=== PATIENT | female | born 1980 | race Caucasian/White ===

== ENCOUNTER → 2019-02-16 | Outpatient (CLI) | payer MEDICAID, SELFPAY ==
[2019-02-16 11:04] VITALS: BMI 20.6
[2019-02-16 12:50] LABS: Thyroid Stim Hormone (TSH) 0.91 uIU/mL (0.358-3.74)
== END | disposition home or self-care (01) ==
LOC: PAVLAB 11:49
PROVIDERS: Referring Provider Nurse Practitioner Women's Health; Visit Provider Nurse Practitioner Women's Health
DX: N92.1 Excessive and frequent menstruation with irregular cycle (principal)
CPT/HCPCS: 36415; 84443

== ENCOUNTER → 2019-02-19 | Outpatient (CLI) | payer MEDICAID, SELFPAY ==
[2019-02-16 11:04] VITALS: BMI 20.6
--- NOTE | 2019-02-19 15:47 | US_ITS ---
STUDY: ULTRASOUND TRANSVAGINAL CLINICAL: Female, 38 years old. Heavy menses TECHNIQUE: Transvaginal COMPARISON: None. FINDINGS: Normal uterine size measuring 7.8 x 5.1 x 4.7 cm in maximal craniocaudal dimension. There are no myometrial masses. Normal endometrial thickness measuring 5 mm. There are no endometrial masses, and there is no fluid in the endometrial cavity. Normal uterine cervix. Normal right ovary, measuring 2.8 x 1 0.9, 1.8 cm. There are multiple follicles without a dominant cyst. Normal left ovary, measuring 4.1 x 3.7 x 2.8 cm. There is a cyst measuring 3.8 x 3.6 x 2.4 cm There is no free fluid in the pelvis. US/Pelvic (Non ) IMPRESSION: Left ovarian cyst measuring 3.8 x 3.6 x 2.4 cm. No other significant abnormality Electronically Signed: Sal Garcia MD at 20:29 EDT , Service support ,
--- NOTE | 2019-02-19 15:47 | US_ITS ---
STUDY: ULTRASOUND TRANSVAGINAL CLINICAL: Female, 38 years old. Heavy menses TECHNIQUE: Transvaginal COMPARISON: None. FINDINGS: Normal uterine size measuring 7.8 x 5.1 x 4.7 cm in maximal craniocaudal dimension. There are no myometrial masses. Normal endometrial thickness measuring 5 mm. There are no endometrial masses, and there is no fluid in the endometrial cavity. Normal uterine cervix. Normal right ovary, measuring 2.8 x 1 0.9, 1.8 cm. There are multiple follicles without a dominant cyst. Normal left ovary, measuring 4.1 x 3.7 x 2.8 cm. There is a cyst measuring 3.8 x 3.6 x 2.4 cm There is no free fluid in the pelvis. US/Transvaginal Non- IMPRESSION: Left ovarian cyst measuring 3.8 x 3.6 x 2.4 cm. No other significant abnormality Electronically Signed: Sal Garcia MD at 20:29 EDT , Service support ,
== END | disposition home or self-care (01) ==
LOC: US 15:45
PROVIDERS: Referring Provider Nurse Practitioner Women's Health; Visit Provider Nurse Practitioner Women's Health
DX: N92.1 Excessive and frequent menstruation with irregular cycle (principal)
CPT/HCPCS: 76830; 76856; 93976

== ENCOUNTER → 2021-02-19 10:34 | Outpatient (CLI) | payer MEDICAID, SELFPAY ==
[2021-02-19 09:55] VITALS: BMI 21.2
[2021-02-19 10:56] LABS: Absolute Lymphocyte Count 1.74 X10^3/uL (0.83-4.51); Absolute Neutrophil Count 4.1 X10^3/uL (2.0-7.7); Basophil# 0.08 X10^3/uL; Basophil% 1.2 % (0-1); Eosinophils% 2.9 % (0-5); Hematocrit 17.3 % (37-47); Lymphocyte # 1.74 X10^3/ul (4.0); Lymphocyte % 25.2 % (19-41); Mean Corp Hgb Conc 28.3 g/dL (32-36); Mean Corpuscular Hgb 19.1 pg (27.0-32.0); Mean Corpuscular Volume 67.3 fL (81-99); Mean Platelet Vol. 10.1 fl (6.2-12.0); Monocyte% 10.1 % (0-10); NRBC Flagged by Analyzer 0 % (0-5); Neutrophil # 4.14 X10^3/uL (2.7-7.7); POSITIVE COUNT YES; Platelet Count 437 K/mm3 (150-450); RBC Distribution Width CV 18.1 % (11.6-14.6); RBC Distribution Width SD 43.5 fl (35.1-43.9); Red Blood Count 2.57 M/mm3 (4.2-5.4); White Blood Count 6.9 K/mm3 (4.4-11.0)
[2021-02-19 11:15] LABS: Hemoglobin 4.9 g/dL (12.0-15.0)
[2021-02-19 11:16] LABS: Differential Indicated SCAN CRITERIA MET
[2021-02-19 11:23] LABS: Anisocytosis 3+; Differential Comment SCANNED; Hypochromasia 2+; Microcytosis 3+
[2021-02-19 11:37] LABS: T4 Free Direct 0.99 ng/dL (0.76-1.46); Thyroid Stim Hormone (TSH) 1.46 uIU/mL (0.358-3.74)
[2021-02-19 11:57] LABS: Vitamin D,25 Hydroxy 20.6 ng/mL
[2021-02-20 12:57] LABS: Pathologist Review Reviewed
== END ==
PROVIDERS: Referring Provider Nurse Practitioner Women's Health; Visit Provider Nurse Practitioner Women's Health
DX: N92.1 Excessive and frequent menstruation with irregular cycle (principal); E04.9 Nontoxic goiter, unspecified; R53.83 Other fatigue; Z13.29 Encounter for screening for other suspected endocrine disorder; Z13.21 Encounter for screening for nutritional disorder
CPT/HCPCS: 36415; 82306; 84439; 84443; 85025

== ENCOUNTER 2021-02-19 12:05 | Observation (INO) | payer MEDICAID, SELFPAY ==
[2021-02-19] VITALS (15 sets, daily range): BP systolic 96–133; BP diastolic 48–85; PULSE 58–103; RESP 14–18; TEMP 36.1–37.3; O2SAT 97–100; BMI 21.2; BMI 20.7; BMI 20.8
--- NOTE | 2021-02-19 12:51 | ED.VIS.GEN ---
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 She states for the past several weeks she has had dyspnea with light exertion. For a month or 2, she has been having episodes of lightheadedness especially when she stands up quickly. She has not passed out. She denies any chest pain, fevers, headache, or changes in urine output. She currently has had no bleeding. She states she was having heavy periods last year, she was put on control pills that regulated it fairly well, but then Covid hit, she was not able to see anybody in the office, and her medication ran out probably 1 year ago but then her menstrual cycles really were not bad until November. Patient states she had a scratchy throat last week, she was seen in urgent care put on 2 courses of empiric antibiotics that she is finished with, that did not seem to help although the symptoms are gone now, and she was also tested for Covid and was negative. - Past Medical History (1) Menorrhagia with irregular cycle Status: Chronic Past Medical History - Allergies and Home Meds Allergies/Adverse Reactions: Allergies No Known Allergies Allergy (Unverified 02/19/21 12:10) Primary Care Physician: Care Physician,No Primary [Primary Care Provider] - Lives: With Family Smoking Status: Light Smoker (<10/day) Review of Systems General: Reports: Malaise, - - lightheaded w/ standing. Denies: Chills, Fever, Sweats Eyes: Denies: Visual changes - bilaterally, Diplopia ENT: Denies: Rhinorrhea, Sore throat Cardiovascular: Denies: Chest pain, Palpitations Respiratory: Reports: Dyspnea on exertion. Denies: Dyspnea, Cough Gastrointestinal: Denies: Abdominal pain, Nausea, Vomiting, Diarrhea, Melena, Hematochezia Genitourinary: Denies: Dysuria, Hematuria, Frequency Musculoskeletal: Denies: Back pain, Extremity Pain Skin: Denies: Rash, Wounds Neurological: Denies: Headache, Weakness, Numbness Physical Exam Vital Signs/Narrative: Vital Signs Temp Pulse Resp BP Pulse Ox 02/19/21 12:06 96.9 F L 103 H 18 133/85 H 100 Inital Vital Signs reviewed: Yes General: Well nourished, Well developed, No Acute Distress Head: Normocephalic, Atraumatic Eyes: Perrl, EOMI ENT: Moist mucous membranes, No rhinorrhea Neck: Supple, Nontender Cardiovascular: Regular rate, Regular rhythm, No murmurs Respiratory: No distress, CTA bilaterally, Chest nontender Abdomen: Soft, Nontender, Nondistended, Normal bowel sounds Back: Nontender, Normal Inspection Extremities: Nontender, No edema Skin: Normal color, No rash, No Trauma Neurological: Alert, Oriented x3, Cranial nerves II-XII grossly intact, Normal Strength, Normal Sensation, Normal Gait Psychological: Normal affect, Normal Mood Diagnostic/Tx/Re-eval Laboratory Tests 02/19/21 02/19/21 02/19/21 Range/Units 13:00 13:00 13:00 WBC 8.2 (4.4-11.0) K/mm3 RBC 2.52 L (4.2-5.4) M/mm3 Hgb 4.7 L* (12.0-15.0) g/dL Hct 16.9 L (37-47) % MCV 67.1 L (81-99) fL MCH 18.7 L (27.0-32.0) pg MCHC 27.8 L (32-36) g/dL RDW Std Deviation 42.8 (35.1-43.9) fl RDW Coeff of Zakia 17.9 H (11.6-14.6) % Plt Count 476 H (150-450) K/mm3 MPV 9.8 (6.2-12.0) fl Immature Gran % (Auto) 0.600 (0.0-0.9) % Neut % (Auto) 70.5 H (47-70) % Lymph % (Auto) 19.0 (19-41) % [place] % (Auto) 7.7 (0-10) % Eos % (Auto) 1.2 (0-5) % Baso % (Auto) 1.0 (0-1) % Absolute Neuts (auto) 5.7 (2.0-7.7) X10^3/uL Absolute Lymphs (auto) 1.55 (0.83-4.51) X10^3/uL Nucleated RBC % 0 (0-5) % Sodium 136 (136-145) mmol/L Potassium 3.4 L (3.5-5.1) mmol/L Chloride 106 (98-107) mmol/L Carbon Dioxide 25.0 (21.0-32.0) mmol/L Anion Gap 5 (5-15) BUN 16 (7-18) mg/dL Creatinine 0.91 (0.55-1.02) mg/dL Estim Creat Clear Calc 77.70 ml/min Est GFR (MDRD) Af Amer 88 (>60) mL/min Est GFR (MDRD) Non-Af 73 (>60) mL/min BUN/Creatinine Ratio 17.5 (10-20) RATIO Glucose 97 (74-106) mg/dL Calcium 9.3 (8.5-10.1) mg/dL Crossmatch See Detail - Medical Decision Making Clinically patient is orthostatic, her hemoglobin came back at 4.7 it is very microcytic indicating she probably has a production problem in addition to the blood loss she has been having. Since she requires at least 2 or 3 units of blood, possibly more, and could use more of a work-up to see if she is iron deficient or something else, I think admitting her to the hospital for the blood is most appropriate, only because she will be in the ER for 12 hours at least, getting the amount of blood that I think she needs. She is clinically stable at rest. Discussed with Dr. Mooney. - Critical Care Time Critical care time (excluding procedures): 30-74 minutes - 30 min, Including time spent:, Discussing w/Patient &/or Family/Application Programmer Analyst, Discussing w/Consultants, Arranging Admission or Transfer, Performing Direct Patient Care at Bedside ED Disposition - Plan for ED Patient: Disposition: Acute Care Hospital [facility] Diagnosis: Acute blood loss anemia, Menorrhagia with irregular cycle, Microcytic anemia, Orthostasis Referrals: Care Physician,No Primary [Primary Care Provider] -
[2021-02-19 13:10] LABS: Absolute Lymphocyte Count 1.55 X10^3/uL (0.83-4.51); Absolute Neutrophil Count 5.7 X10^3/uL (2.0-7.7); Basophil# 0.08 X10^3/uL; Eosinophils% 1.2 % (0-5); Hematocrit 16.9 % (37-47); Lymphocyte # 1.55 X10^3/ul (4.0); Mean Corp Hgb Conc 27.8 g/dL (32-36); Mean Corpuscular Hgb 18.7 pg (27.0-32.0); Mean Corpuscular Volume 67.1 fL (81-99); Mean Platelet Vol. 9.8 fl (6.2-12.0); Monocyte# 0.63 X10^3/uL; Monocyte% 7.7 % (0-10); NRBC Flagged by Analyzer 0 % (0-5); Neutrophil # 5.74 X10^3/uL (2.7-7.7); Neutrophil % 70.5 % (47-70); POSITIVE COUNT YES; Platelet Count 476 K/mm3 (150-450); RBC Distribution Width CV 17.9 % (11.6-14.6); RBC Distribution Width SD 42.8 fl (35.1-43.9); Red Blood Count 2.52 M/mm3 (4.2-5.4); White Blood Count 8.2 K/mm3 (4.4-11.0)
[2021-02-19 13:16] LABS: Hemoglobin 4.7 g/dL (12.0-15.0)
--- NOTE | 2021-02-19 13:16 | ED.RN ---
lab called critical of hmg 4.7. dr mares
[2021-02-19 13:22] LABS: Anion Gap 5 (5-15); BUN 16 mg/dL (7-18); BUN/Creat Ratio 17.5 RATIO (10-20); Calcium,Total 9.3 mg/dL (8.5-10.1); Chloride 106 mmol/L (98-107); Creatinine, Serum 0.91 mg/dL (0.55-1.02); EST Glomerular Filtration Rate 73 mL/min (>60); Est Glom Filt Rate - Afr Amer 88 mL/min (>60); Glucose 97 mg/dL (74-106); Potassium 3.4 mmol/L (3.5-5.1); Sodium Level 136 mmol/L (136-145)
--- NOTE | 2021-02-19 13:44 | NURSING ---
HELEN MAYA OBS ANEMIA, MONORRHAGIA
--- NOTE | 2021-02-19 17:06 | PCM.HP.STD ---
Problem List (1) Acute blood loss anemia Status: Acute (2) Microcytic anemia Status: Acute (3) Orthostasis Status: Acute (4) Enlarged thyroid Status: Acute Comment: US and labs (5) Menorrhagia with irregular cycle Status: Chronic History of Present Illness Date of Admission: 02/19/21 The patient is a 40 year old F presents with chronic severe, symptomatic anemia due to menstrual blood loss. She is in the process of being evaluated by the nurse practitioner for heavy menses and was found to be critically anemic and therefore recommended STO admission for blood transfusion. Patient has had dizziness and lightheadedness with positive orthostasis and initial hemoglobin was 4.7. Past Medical History Past Medical History (Chronic Problems): Chronic Problems (Last Reviewed 02/19/21 @ 09:54 by Allie Mcbride) Menorrhagia with irregular cycle (Chronic) Allergies No Known Allergies Allergy (Unverified 02/19/21 12:10) Home Medications: Ambulatory Orders Medication Instructions Recorded norethindrone (contraceptive) 0.35 0.35 mg PO QDAY #84 tab 02/19/21 mg tablet Surgical History: Surgical History (Last Reviewed 02/19/21 @ 09:54 by Allie Mcbride) d and c Lives: With Family Smoking Status: Light Smoker (<10/day) Tobacco Use: Cigarettes Review of Systems Comment: Review of Systems. General: Reports: Malaise, - - lightheaded w/ standing. Denies: Chills, Fever, Sweats. Eyes: Denies: Visual changes - bilaterally, Diplopia. ENT: Denies: Rhinorrhea, Sore throat. Cardiovascular: Denies: Chest pain, Palpitations. Respiratory: Reports: Dyspnea on exertion. Denies: Dyspnea, Cough. Gastrointestinal: Denies: Abdominal pain, Nausea, Vomiting, Diarrhea, Melena, Hematochezia. Genitourinary: Denies: Dysuria, Hematuria, Frequency. Musculoskeletal: Denies: Back pain, Extremity Pain. Skin: Denies: Rash, Wounds. Neurological: Denies: Headache, Weakness, Numbness. Physical Exam. Vital Signs/Narrative: Vital Signs. TempPulseRespBPPulse Ox. 02/19/21 12:06 96.9 F L 103 H 18 133/85 H 100. Inital Vital Signs reviewed: Yes. General: Well nourished, Well developed, No Acute Distress. Head: Normocephalic, Atraumatic. Eyes: Perrl, EOMI. ENT: Moist mucous membranes, No rhinorrhea. Neck: Supple, Nontender. Cardiovascular: Regular rate, Regular rhythm, No murmurs. Respiratory: No distress, CTA bilaterally, Chest nontender. Abdomen: Soft, Nontender, Nondistended, Normal bowel sounds. Back: Nontender, Normal Inspection. Extremities: Nontender, No edema. Skin: Normal color, No rash, No Trauma. Neurological: Alert, Oriented x3, Cranial nerves II-XII grossly intact, Normal Strength, Normal Sensation, Normal Gait. Psychological: Normal affect, Normal Mood VTE Information - Inpt Only VTE Present on Admission: No Patient Problems: Active and Suspected Problems (Last Reviewed 02/19/21 @ 09:54 by Allie Mcbride) Acute blood loss anemia (Acute) Microcytic anemia (Acute) Orthostasis (Acute) Enlarged thyroid (Acute) US and labs - Physical Exam Vitals/I&O's: Vital Signs Temp Pulse Resp BP Pulse Ox 98.9 F 66 16 106/73 100 02/19/21 16:28 02/19/21 16:28 02/19/21 16:28 02/19/21 16:28 02/19/21 16:28 Oxygen Delivery Method Room Air Weight: 128 lb 14.4 oz Body Mass Index (BMI) 20.7 Intake and Output for Last 24 Hours 02/17/21 02/18/21 02/19/21 23:59 23:59 23:59 Intake Total 0 / 0 Balance 0 / 0 Laboratory Results 02/19/21 13:00: WBC 8.2, RBC 2.52 L, Hgb 4.7 L*, Hct 16.9 L, MCV 67.1 L, MCH 18.7 L, MCHC 27.8 L, RDW Std Deviation 42.8, RDW Coeff of Zakia 17.9 H, Plt Count 476 H, MPV 9.8, Immature Gran % (Auto) 0.600, Neut % (Auto) 70.5 H, Lymph % (Auto) 19.0, [place] % (Auto) 7.7, Eos % (Auto) 1.2, Baso % (Auto) 1.0, Absolute Neuts (auto) 5.7, Absolute Lymphs (auto) 1.55, Nucleated RBC % 0, Diff Path Review March02/19/21 13:00: Sodium 136, Potassium 3.4 L, Chloride 106, Carbon Dioxide 25.0, Anion Gap 5, BUN 16, Creatinine 0.91, Estim Creat Clear Calc 77.70, Est GFR (MDRD) Af Amer 88, Est GFR (MDRD) Non-Af 73, BUN/Creatinine Ratio 17.5, Glucose 97, Calcium 9.3 02/19/21 13:00: Blood Type A POSITIVE, Antibody Screen NEGATIVE, Crossmatch See Detail Current Medications Acetaminophen (Acetaminophen 325 Mg Tablet) 650 mg PO Q6H PRN PRN PRN Reason: Pain Score 1-10/Temp > 100.7 F Bisacodyl (Bisacodyl 5 Mg Tablet) 5 mg PO DAILY PRN PRN PRN Reason: Constipation Famotidine (Famotidine 20 Mg Tablet) 20 mg PO BID JENNYFER Ibuprofen (Ibuprofen 400 Mg Tablet) 400 mg PO Q4H PRN PRN PRN Reason: Pain Score 1-10/Temp > 100.7 F Ondansetron HCl (Ondansetron 4 Mg/2 Ml Vial) 4 mg IV Q8H PRN PRN PRN Reason: NAUSEA/VOMITING Oxycodone HCl (Oxycodone 5 Mg Tablet) 5 mg PO Q4H PRN PRN PRN Reason: Pain Score 4-10 Prochlorperazine Edisylate (Prochlorperazine 10 Mg/2 Ml Vial) 5 mg IV Q4H PRN PRN PRN Reason: Breakthrough nausea/vomiting Sodium Chloride (0.9% Saline Lock 10 Ml Syringe) 10 - 40 ml IV UD PRN PRN Reason: SALINE FLUSH Assessment/Plan All Active Problems (Last Reviewed 02/19/21 @ 09:54 by Allie Mcbride) Acute blood loss anemia (Acute) Microcytic anemia (Acute) Orthostasis (Acute) Enlarged thyroid (Acute) Severe chronic blood loss anemia, symptomatic?recommend 3 units of blood to be transfused total and then repeat cbc 4 hours post transfusion, sto while transfusing. recommend pelvic and thyroid us. monitor symptoms.
--- NOTE | 2021-02-19 17:12 | US_ITS ---
STUDY: THYROID ULTRASOUND REASON FOR EXAM: Female, 40 years old. Thyromegaly TECHNIQUE: Ultrasound evaluation of the thyroid was performed with real-time and static francisco-scale imaging. COMPARISON: None. FINDINGS: RIGHT LOBE: The right lobe of the thyroid gland is enlarged and measures 5.2 cm x 1.3 cm x 1.3 cm. There is a homogeneous echotexture. There are no demonstrated solid, cystic or complex lesions. LEFT LOBE: The left lobe of the thyroid gland is enlarged and measures 5.2 cm x 1.3 cm x 1.1 cm. There is a homogeneous echotexture. There is a 3 mm x 2 mm x 1 mm hypoechoic solid nodule in the midpole of the left lobe. ISTHMUS: The isthmus measures 1.3 mm. The regional lymph nodes are normal. US/Thyroid IMPRESSION: Enlargement of the thyroid gland. 3 mm x 2 mm x 1 mm hypoechoic solid nodule in the midpole of the left lobe of the thyroid. Electronically Signed: Richard Montgomery MD at 12:11 EDT , Service support ,
--- NOTE | 2021-02-19 17:12 | US_ITS ---
STUDY: ULTRASOUND OF THE FEMALE PELVIS - COMPLETE REASON FOR EXAM: Female, 40 years old. Anemia, heavy bleeding LMP: End november. TECHNIQUE: Transvaginal TECHNICAL QUALITY: Adequate. COMPARISON: None. FINDINGS: The uterus is anteverted and is in a midline position. The uterus measures 10.5 cm x 5.9 cm x 4.9 cm. There is a Nabothian cyst of the cervix. The endometrium measures 18 mm in thickness, and is heterogeneous (striated). Tiny cysts measuring 6 mm seen adjacent to the endometrium. There is no demonstrated endometrial mass. There is no demonstrated myometrial mass. I.U.D. - The patient does not have an I.U.D. The right ovary is visualized. The right ovary measures 2.9 cm x 1.5 cm x 1.7 cm. A dominant follicle is seen measuring 1.3 cm x 1.2 cm x 1 cm. There is no visualized right adnexal mass or complex lesion. There is normal arterial and normal venous vascularity. The left ovary is visualized. The left ovary is enlarged and measures 5.8 cm x 3.6 cm x 3.4 cm. A dominant cyst is seen within the ovary measuring 3.4 cm x 2.6 cm x 2.4 cm. There is no visualized left adnexal mass or complex lesion. There is normal arterial and normal venous vascularity. There is no fluid in the cul-de-sac. The pre void volume of the bladder was 28 ml. Polycystic ovary disease: No. US/Transvaginal Non- IMPRESSION: Thickened and heterogeneous appearance of the endometrium. Polyp should be ruled out. Dominant cyst in the left ovary measuring 3.4 cm x 2.6 cm x 2.4 cm. Electronically Signed: Richard Montgomery MD at 12:14 EDT , Service support ,
[2021-02-19] MEDS: Famotidine 20 MG Tablet PO (21:53)
[2021-02-20 00:05] VITALS: BP 98/52; PULSE 67; RESP 18; TEMP 36.7; O2SAT 99
[2021-02-20 03:00] VITALS: PULSE 64
[2021-02-20 04:27] VITALS: BP 90/50; PULSE 64; RESP 18; TEMP 36.7; O2SAT 98
[2021-02-20 05:01] LABS: Absolute Lymphocyte Count 2.07 X10^3/uL (0.83-4.51); Absolute Neutrophil Count 3.4 X10^3/uL (2.0-7.7); Basophil# 0.09 X10^3/uL; Basophil% 1.3 % (0-1); Eosinophil# 0.26 X10^3/uL; Eosinophils% 3.9 % (0-5); Lymphocyte # 2.07 X10^3/ul (4.0); Lymphocyte % 30.8 % (19-41); Mean Corpuscular Hgb 22.9 pg (27.0-32.0); Mean Corpuscular Volume 74.5 fL (81-99); Mean Platelet Vol. 10.2 fl (6.2-12.0); Monocyte# 0.82 X10^3/uL; Monocyte% 12.2 % (0-10); NRBC Flagged by Analyzer 0 % (0-5); Neutrophil # 3.44 X10^3/uL (2.7-7.7); Neutrophil % 51.4 % (47-70); POSITIVE MORPHOLOGY YES; Platelet Count 368 K/mm3 (150-450); RBC Distribution Width CV 21.3 % (11.6-14.6); Red Blood Count 3.49 M/mm3 (4.2-5.4); White Blood Count 6.7 K/mm3 (4.4-11.0)
[2021-02-20 05:05] LABS: Differential Indicated SCAN CRITERIA MET; Mean Corp Hgb Conc 30.8 g/dL (32-36)
[2021-02-20 05:25] LABS: Anisocytosis 1+; Differential Comment SCANNED; Hypochromasia 2+; Microcytosis 1+
[2021-02-20 05:26] LABS: Schistocytes RARE
[2021-02-20 05:28] LABS: Thyroid Stim Hormone (TSH) 1.49 uIU/mL (0.358-3.74)
[2021-02-20 06:16] VITALS: BP 89/41; PULSE 58; RESP 18; TEMP 36.7; O2SAT 98
--- NOTE | 2021-02-20 07:17 | PCM.PN.OB ---
Patient Problems: Active and Suspected Problems (Last Reviewed 02/19/21 @ 09:54 by Allie Mcbride) Acute blood loss anemia (Acute) Microcytic anemia (Acute) Orthostasis (Acute) Enlarged thyroid (Acute) US and labs - Physical Exam Vitals/I&O's: Vital Signs Temp Pulse Resp BP Pulse Ox 98.1 F 58 L 18 89/41 L 98 02/20/21 06:16 02/20/21 06:16 02/20/21 06:16 02/20/21 06:16 02/20/21 06:16 Oxygen Delivery Method Room Air Weight: 128 lb 14.4 oz Body Mass Index (BMI) 20.7 Intake and Output for Last 24 Hours 02/18/21 02/19/21 02/20/21 23:59 23:59 23:59 Intake Total 1750 / 1750 700 / 700 Output Total 150 / 150 Balance 1600 / 1600 700 / 700 General: Alert, Oriented x3 Laboratory Results 02/19/21 13:00: WBC 8.2, RBC 2.52 L, Hgb 4.7 L*, Hct 16.9 L, MCV 67.1 L, MCH 18.7 L, MCHC 27.8 L, RDW Std Deviation 42.8, RDW Coeff of Zakia 17.9 H, Plt Count 476 H, MPV 9.8, Immature Gran % (Auto) 0.600, Neut % (Auto) 70.5 H, Lymph % (Auto) 19.0, [place] % (Auto) 7.7, Eos % (Auto) 1.2, Baso % (Auto) 1.0, Absolute Neuts (auto) 5.7, Absolute Lymphs (auto) 1.55, Nucleated RBC % 0, Diff Path Review March02/19/21 13:00: Sodium 136, Potassium 3.4 L, Chloride 106, Carbon Dioxide 25.0, Anion Gap 5, BUN 16, Creatinine 0.91, Estim Creat Clear Calc 77.70, Est GFR (MDRD) Af Amer 88, Est GFR (MDRD) Non-Af 73, BUN/Creatinine Ratio 17.5, Glucose 97, Calcium 9.3 02/19/21 13:00: Blood Type A POSITIVE, Antibody Screen NEGATIVE, Crossmatch See Detail 02/19/21 13:00: Crossmatch See Detail 02/20/21 04:34: WBC 6.7, RBC 3.49 L, Hgb 8.0 L, Hct 26.0 L, MCV 74.5 L D, MCH 22.9 L, MCHC 30.8 L D, RDW Std Deviation 57.0 H, RDW Coeff of [place]akia 21.3 H, Plt Count 368, MPV 10.2, Immature Gran % (Auto) 0.400, Neut % (Auto) 51.4, Lymph % (Auto) 30.8, [place] % (Auto) 12.2 H, Eos % (Auto) 3.9, Baso % (Auto) 1.3 H, Absolute Neuts (auto) 3.4, Absolute Lymphs (auto) 2.07, Nucleated RBC % 0, Differential Comment SCANNED, Hypochromasia 2+, Anisocytosis 1+, Microcytosis 1+, Schistocytes RARE 02/20/21 04:34: TSH 1.49 Current Medications Acetaminophen (Acetaminophen 325 Mg Tablet) 650 mg PO Q6H PRN PRN PRN Reason: Pain Score 1-10/Temp > 100.7 F Bisacodyl (Bisacodyl 5 Mg Tablet) 5 mg PO DAILY PRN PRN PRN Reason: Constipation Famotidine (Famotidine 20 Mg Tablet) 20 mg PO BID [facility] Last Admin: 02/19/21 21:53 Dose: 20 mg Documented by: Ibuprofen (Ibuprofen 400 Mg Tablet) 400 mg PO Q4H PRN PRN PRN Reason: Pain Score 1-10/Temp > 100.7 F Non-Formulary Medication (Norethindrone) 0.35 mg PO DAILY [facility] Ondansetron HCl (Ondansetron 4 Mg/2 Ml Vial) 4 mg IV Q8H PRN PRN PRN Reason: NAUSEA/VOMITING Oxycodone HCl (Oxycodone 5 Mg Tablet) 5 mg PO Q4H PRN PRN PRN Reason: Pain Score 4-10 Prochlorperazine Edisylate (Prochlorperazine 10 Mg/2 Ml Vial) 5 mg IV Q4H PRN PRN PRN Reason: Breakthrough nausea/vomiting Sodium Chloride (0.9% Saline Lock 10 Ml Syringe) 10 - 40 ml IV UD PRN PRN Reason: SALINE FLUSH Medical Necessity - Tobacco Use Smoking Status: Light Smoker (<10/day) Tobacco Use: Cigarettes Assessment/Plan All Active Problems (Last Reviewed 02/19/21 @ 09:54 by Allie Mcbride) Acute blood loss anemia (Acute) Microcytic anemia (Acute) Orthostasis (Acute) Enlarged thyroid (Acute)
[2021-02-20 07:50] VITALS: PULSE 60
[2021-02-20] MEDS: Ibuprofen 400 MG Tablet PO (08:10)
[2021-02-20] MEDS: Famotidine 20 MG Tablet PO (08:10)
[2021-02-20 08:19] VITALS: BP 102/59; BP 107/64; BP 118/67; PULSE 54; PULSE 64; RESP 16; TEMP 36.5; O2SAT 100
--- NOTE | 2021-02-20 08:26 | DCINST_ITS ---
- Discharge Diagnoses Current Active Problems: Current Active and Chronic Problems (Last Reviewed 02/19/21 @ 09:54 by Allie Mcbride) Acute blood loss anemia (Acute) Microcytic anemia (Acute) Orthostasis (Acute) Enlarged thyroid (Acute) US and labs Menorrhagia with irregular cycle (Chronic) You will use the following diet at home:: Regular Discharge Activity: Return to Normal Activity May resume sexual activity in: No Restrictions Call your doctor if your incision/area has: Sudden Increased Bleeding Call your doctor if you observe: Fever of 101 or Higher, Coldness, Increased Pain, Numbness or Tingling, Using more than one pad per hour, Shortness of breath, Dizziness, Fainting spells, Chest pain Allergies/Adverse Reactions: Allergies No Known Allergies Allergy (Unverified 02/19/21 12:10) Medications to take at Discharge norethindrone (contraceptive) 0.35 mg tablet 0.35 mg PO QDAY #84 tab 02/19/21 Primary Care Physician: Care Physician,No Primary [Primary Care Provider] - Test Results: Test results from this visit will be discussed in further detail at your follow- up appointment, if applicable. Please Follow Up With: Jasen Paredes NP, PROFESSIONAL DRIVER-C - establish care, migraines Please Follow Up With: Vianey Mooeny MD When: 2-3 weeks
[2021-02-20] MEDS: Acetaminophen/Butalbital/Caffe 1 Tablet 2 TABLET PO (09:11)
[2021-02-20 12:58] LABS: Pathologist Review Reviewed
== END 2021-02-20 08:27 | disposition home or self-care (01) ==
LOC: ED 14:03 → PCU 02-20 06:29
PROVIDERS: Admitting Provider Obstetrics & Gynecology; Emergency Provider Emergency Medicine; Referring Provider Obstetrics & Gynecology; Visit Provider Obstetrics & Gynecology
DX: N92.1 Excessive and frequent menstruation with irregular cycle (principal); D62 Acute posthemorrhagic anemia; E04.9 Nontoxic goiter, unspecified; F17.210 Nicotine dependence, cigarettes, uncomplicated; R53.83 Other fatigue; Z12.4 Encounter for screening for malignant neoplasm of cervix; Z13.21 Encounter for screening for nutritional disorder; Z13.29 Encounter for screening for other suspected endocrine disorder
CPT/HCPCS: 36415; 36430; 76536; 76830; 80048; 82306; 84439; 84443; 85025; 86850; 86900; 86901; 86920; 86922; 87624; 88175; 99218; 99285; J7040; P9016; A4216; G0145; G0378

== ENCOUNTER → 2021-02-19 12:42 | Outpatient (CLI) | payer MEDICAID, SELFPAY ==
[2021-02-19 12:06] VITALS: BMI 21.2
[2021-02-22 16:35] LABS: HPV APTIMA, High Risk Negative (Negative)
== END ==
PROVIDERS: Referring Provider Nurse Practitioner Women's Health; Visit Provider Nurse Practitioner Women's Health
DX: Z12.4 Encounter for screening for malignant neoplasm of cervix (principal)
CPT/HCPCS: 87624; 88175; G0145

== ENCOUNTER → 2021-03-06 10:21 | Outpatient (CLI) | payer MEDICAID, SELFPAY ==
[2021-02-22 10:59] VITALS: BMI 21.6
[2021-03-06 10:48] LABS: Absolute Lymphocyte Count 1.79 X10^3/uL (0.83-4.51); Absolute Neutrophil Count 4.3 X10^3/uL (2.0-7.7); Basophil# 0.09 X10^3/uL; Basophil% 1.3 % (0-1); Eosinophil# 0.19 X10^3/uL; Eosinophils% 2.8 % (0-5); Hematocrit 36.2 % (37-47); Hemoglobin 10.7 g/dL (12.0-15.0); Lymphocyte # 1.79 X10^3/ul (0.83-4.51); Mean Corp Hgb Conc 29.6 g/dL (32-36); Mean Corpuscular Hgb 23.6 pg (27.0-32.0); Mean Corpuscular Volume 79.7 fL (81-99); Mean Platelet Vol. 10.4 fl (6.2-12.0); Monocyte# 0.54 X10^3/uL; Monocyte% 7.8 % (0-10); NRBC Flagged by Analyzer 0 % (0-5); Neutrophil # 4.25 X10^3/uL (2.7-7.7); Neutrophil % 61.8 % (47-70); POSITIVE MORPHOLOGY YES; Platelet Count 463 K/mm3 (150-450); RBC Distribution Width CV 27.6 % (11.6-14.6); RBC Distribution Width SD 79.3 fl (35.1-43.9); Red Blood Count 4.54 M/mm3 (4.2-5.4); White Blood Count 6.9 K/mm3 (4.4-11.0)
[2021-03-06 10:51] LABS: Differential Indicated SCAN CRITERIA MET
[2021-03-06 11:03] LABS: ALB/GLOB Ratio 1.1 RATIO (0.9-2.4); AST(SGOT) 16 U/L (15-37); Alanine Aminotransfer ALT/SGPT 28 U/L (13-56); Albumin, Serum 3.9 g/dL (3.2-5.0); Alkaline Phosphatase 59 U/L (45-117); Anion Gap 4 (5-15); BUN 14 mg/dL (7-18); Calcium,Total 9.7 mg/dL (8.5-10.1); Chloride 107 mmol/L (98-107); EST Glomerular Filtration Rate 66 mL/min (>60); Est Glom Filt Rate - Afr Amer 79 mL/min (>60); Globulin 3.4 g/dL (2.2-4.2); Glucose 89 mg/dL (74-106); Potassium 4.4 mmol/L (3.5-5.1); Protein, Total 7.3 g/dL (6.4-8.2); Sodium Level 139 mmol/L (136-145)
[2021-03-06 11:06] LABS: Ferritin 23 ng/mL (8-252); Iron 89 ug/dL (50-170); Iron Binding Capacity,Total 533 ug/dL (250-450); PERCENT IRON SATURATION 16.7 % (15.0-55.0)
[2021-03-06 11:26] LABS: Anisocytosis 1+
[2021-03-06 18:44] LABS: Xtra Tube EP Lab EXTRA TUBE
== END ==
PROVIDERS: Referring Provider Nurse Practitioner Family; Visit Provider Nurse Practitioner Family
DX: D50.9 Iron deficiency anemia, unspecified (principal); D62 Acute posthemorrhagic anemia; E87.6 Hypokalemia; N92.1 Excessive and frequent menstruation with irregular cycle
CPT/HCPCS: 36415; 80053; 82728; 83540; 83550; 85025

== ENCOUNTER → 2021-04-26 12:56 | Outpatient (CLI) | payer MEDICAID, SELFPAY ==
[2021-03-27 11:35] VITALS: BMI 21.6
[2021-04-26 13:23] LABS: Absolute Lymphocyte Count 1.79 X10^3/uL (0.83-4.51); Absolute Neutrophil Count 5.7 X10^3/uL (2.0-7.7); Basophil% 1.2 % (0-1); Differential Indicated SCAN CRITERIA MET; Eosinophil# 0.19 X10^3/uL; Eosinophils% 2.2 % (0-5); Hematocrit 41.4 % (37-47); Hemoglobin 13.5 g/dL (12.0-15.0); Lymphocyte # 1.79 X10^3/ul (0.83-4.51); Lymphocyte % 21.1 % (19-41); Mean Corp Hgb Conc 32.6 g/dL (32-36); Mean Corpuscular Hgb 28.3 pg (27.0-32.0); Mean Corpuscular Volume 86.8 fL (81-99); Monocyte# 0.73 X10^3/uL; Monocyte% 8.6 % (0-10); NRBC Flagged by Analyzer 0 % (0-5); Neutrophil # 5.65 X10^3/uL (2.7-7.7); Neutrophil % 66.4 % (47-70); POSITIVE MORPHOLOGY YES; Platelet Count 412 K/mm3 (150-450); RBC Distribution Width CV 20.2 % (11.6-14.6); RBC Distribution Width SD 65.6 fl (35.1-43.9); Red Blood Count 4.77 M/mm3 (4.2-5.4); White Blood Count 8.5 K/mm3 (4.4-11.0)
[2021-04-26 13:44] LABS: Anisocytosis 1+
[2021-04-26 21:17] LABS: Xtra Tube EP Lab EXTRA TUBE
== END ==
PROVIDERS: PCP Internal Medicine; Referring Provider Internal Medicine; Visit Provider Internal Medicine
DX: D50.9 Iron deficiency anemia, unspecified (principal)
CPT/HCPCS: 36415; 85025

== ENCOUNTER → 2021-07-26 10:42 | Outpatient (CLI) | payer MEDICAID, SELFPAY ==
[2021-07-26 11:12] LABS: Absolute Lymphocyte Count 1.69 X10^3/uL (0.83-4.51); Absolute Neutrophil Count 5.1 X10^3/uL (2.0-7.7); Basophil# 0.07 X10^3/uL; Basophil% 0.9 % (0-1); Eosinophil# 0.15 X10^3/uL; Eosinophils% 1.9 % (0-5); Hematocrit 41.6 % (37-47); Hemoglobin 13.8 g/dL (12.0-15.0); Lymphocyte # 1.69 X10^3/ul (0.83-4.51); Lymphocyte % 21.8 % (19-41); Mean Corp Hgb Conc 33.2 g/dL (32-36); Mean Corpuscular Hgb 30.9 pg (27.0-32.0); Mean Corpuscular Volume 93.1 fL (81-99); Mean Platelet Vol. 10.2 fl (6.2-12.0); Monocyte# 0.67 X10^3/uL; Monocyte% 8.7 % (0-10); NRBC Flagged by Analyzer 0 % (0-5); Neutrophil # 5.11 X10^3/uL (2.7-7.7); Neutrophil % 66.1 % (47-70); Platelet Count 300 K/mm3 (150-450); RBC Distribution Width CV 12.9 % (11.6-14.6); RBC Distribution Width SD 44.2 fl (35.1-43.9); Red Blood Count 4.47 M/mm3 (4.2-5.4); White Blood Count 7.7 K/mm3 (4.4-11.0)
== END ==
PROVIDERS: PCP Internal Medicine; Referring Provider Internal Medicine; Visit Provider Internal Medicine
DX: D50.9 Iron deficiency anemia, unspecified (principal)
CPT/HCPCS: 36415; 85025

== ENCOUNTER 2022-01-25 10:56 | Outpatient (CLI) | payer MEDICAID, SELFPAY ==
[2022-01-25 12:23] LABS: Absolute Lymphocyte Count 1.99 X10^3/uL (0.83-4.51); Absolute Neutrophil Count 6.2 X10^3/uL (2.0-7.7); Basophil# 0.08 X10^3/uL; Basophil% 0.9 % (0-1); Eosinophil# 0.17 X10^3/uL; Eosinophils% 1.8 % (0-5); Hemoglobin 14.4 g/dL (12.0-15.0); Lymphocyte # 1.99 X10^3/ul (0.83-4.51); Lymphocyte % 21.4 % (19-41); Mean Corp Hgb Conc 34.3 g/dL (32-36); Mean Corpuscular Hgb 31.2 pg (27.0-32.0); Mean Corpuscular Volume 90.9 fL (81-99); Monocyte# 0.86 X10^3/uL; Monocyte% 9.2 % (0-10); NRBC Flagged by Analyzer 0 % (0-5); Neutrophil # 6.17 X10^3/uL (2.7-7.7); Neutrophil % 66.2 % (47-70); Platelet Count 347 K/mm3 (150-450); RBC Distribution Width CV 12.7 % (11.6-14.6); RBC Distribution Width SD 41.9 fl (35.1-43.9); Red Blood Count 4.62 M/mm3 (4.2-5.4); White Blood Count 9.3 K/mm3 (4.4-11.0)
[2022-01-25 13:07] LABS: ALB/GLOB Ratio 1.2 RATIO (0.9-2.4); AST(SGOT) 21 U/L (15-37); Alanine Aminotransfer ALT/SGPT 36 U/L (13-56); Alkaline Phosphatase 77 U/L (45-117); Anion Gap 3 (5-15); BUN 16 mg/dL (7-18); BUN/Creat Ratio 17.1 RATIO (10-20); Calcium,Total 9.4 mg/dL (8.5-10.1); Chloride 107 mmol/L (98-107); Creatinine, Serum 0.94 mg/dL (0.55-1.02); EST Glomerular Filtration Rate 70 mL/min (>60); Est Glom Filt Rate - Afr Amer 85 mL/min (>60); Globulin 3.4 g/dL (2.2-4.2); Glucose 95 mg/dL (74-106); Potassium 4.1 mmol/L (3.5-5.1); Protein, Total 7.4 g/dL (6.4-8.2); Sodium Level 136 mmol/L (136-145); Thyroid Stim Hormone (TSH) 1.52 uIU/mL (0.358-3.74)
== END 2022-01-25 23:59 | disposition home or self-care (01) ==
LOC: BIMLAB 10:56
PROVIDERS: PCP Internal Medicine; Referring Provider Internal Medicine; Visit Provider Internal Medicine
DX: G43.709 Chronic migraine without aura, not intractable, without status migrainosus (principal); D50.9 Iron deficiency anemia, unspecified; L65.9 Nonscarring hair loss, unspecified
CPT/HCPCS: 36415; 80053; 84439; 84443; 85025

== ENCOUNTER 2022-02-05 11:52 | Outpatient (CLI) | payer MEDICAID, SELFPAY ==
--- NOTE | 2022-02-05 11:55 | BI_ITS ---
MAMMOGRAPHY - BILATERAL SCREENING REASON FOR EXAM: Female, 41 years old. Routine annual screening examination. PERTINENT HISTORY: Mother with breast cancer. TECHNIQUE: Digital bilateral breast karen (3D mammographic acquisition) in the CC and MLO projections. 2-D mediolateral oblique (MLO) and craniocaudad (CC) views of both breasts were obtained. CAD: Full Field Digital Mammography with Computer Added Detection was performed. COMPARISON: None. Baseline examination. FINDINGS: Breast Composition: The breasts are extremely dense, which lowers the sensitivity of mammography. There are no dominant masses or suspicious calcifications. No other significant abnormalities are identified. BI/SCRN MAMM (CAD)W/KAREN BILAT IMPRESSION: Negative screening mammogram. Yearly followup mammogram recommended. (A) ASSESSMENT CATEGORY: BIRADS Category 1: Negative. A letter regarding these results will be sent to the patient by the facility within 30 days. Approximately 10% of breast cancers are not detected by mammography. A normal mammogram should not delay biopsy of a clinically suspicious abnormality. [id number] Electronically Signed: Richard Montgomery MD at 13:07 EDT ,
== END 2022-02-05 23:59 | disposition home or self-care (01) ==
LOC: OPBI 11:53
PROVIDERS: PCP Internal Medicine; Referring Provider Internal Medicine; Visit Provider Internal Medicine
DX: Z12.31 Encounter for screening mammogram for malignant neoplasm of breast (principal)
CPT/HCPCS: 77063; 77067

== ENCOUNTER → 2022-03-26 | Outpatient (CLI) | payer MEDICAID, SELFPAY ==
--- NOTE | 2022-03-26 | EMB_PTH ---
PATIENT: ABHAY HAMMER LOC: [facility]#:[id number] AGE/SX: 41/F ROOM: RE03/26/[address]: Dr. Vianey Mooney MD : [id number] BED: DIS: 03/26/2022 SPEC #: [id number] RECD: 03/26/22 13:55 STATUS: JEFFY PATHAK #: [id number] HOA: 03/26/22 00:[address]: Vianey Mooney DEPT: SURGICAL PATHOLOGY RECD BY: Shaheen Lugo ENTERED: 03/27/22 09:18 SP TYPE: ENDOM BX/C HANK DR: Dr. Anne-Marie Garg MD Tissues: Endometrium, NOS Procedures: Surgery Specimen Level IV HEADER OPERATION: Endometrial biopsy PRE-OP DIAGNOSIS: Menorrhagia TISSUE SUBMITTED: Endometrial biopsy MICROSCOPIC DIAGNOSIS Endometrial biopsy: Secretory endometrium. SJ:thea 03/28/2022 MICROSCOPIC DESCRIPTION Slides are reviewed. GROSS DESCRIPTION Received is one container labeled with the patient's name and not further designated. The specimen consists of multiple irregular fragments of zavala-pink soft tissue that in aggregate measure 2 x 1 x 0.1 cm. The specimen is totally submitted in one cassette. / SJ:thea 03/27/2022 TC:4 CPT: 53128
[2022-03-26 14:16] LABS: Absolute Lymphocyte Count 2.02 X10^3/uL (0.83-4.51); Absolute Neutrophil Count 7.1 X10^3/uL (2.0-7.7); Basophil# 0.06 X10^3/uL; Basophil% 0.6 % (0-1); Eosinophil# 0.13 X10^3/uL; Eosinophils% 1.3 % (0-5); Hemoglobin 13.6 g/dL (12.0-15.0); Lymphocyte # 2.02 X10^3/ul (0.83-4.51); Lymphocyte % 20.1 % (19-41); Mean Corp Hgb Conc 33.2 g/dL (32-36); Mean Corpuscular Hgb 30.6 pg (27.0-32.0); Mean Corpuscular Volume 92.3 fL (81-99); Mean Platelet Vol. 10.5 fl (6.2-12.0); Monocyte# 0.71 X10^3/uL; Monocyte% 7.1 % (0-10); NRBC Flagged by Analyzer 0 % (0-5); Neutrophil # 7.06 X10^3/uL (2.7-7.7); Neutrophil % 70.4 % (47-70); Platelet Count 281 K/mm3 (150-450); RBC Distribution Width SD 43.7 fl (35.1-43.9); Red Blood Count 4.44 M/mm3 (4.2-5.4)
[2022-03-26 14:43] LABS: Thyroid Stim Hormone (TSH) 1.42 uIU/mL (0.358-3.74)
== END | disposition home or self-care (01) ==
PROVIDERS: PCP Internal Medicine; Referring Provider Obstetrics & Gynecology; Visit Provider Obstetrics & Gynecology
DX: N92.0 Excessive and frequent menstruation with regular cycle (principal)
CPT/HCPCS: 36415; 84443; 85025; 88305

== ENCOUNTER → 2022-04-15 | Outpatient (CLI) | payer MEDICAID, SELFPAY ==
--- NOTE | 2022-04-15 10:32 | US_ITS ---
STUDY: THYROID ULTRASOUND REASON FOR EXAM: Female, 41 years old. Thyromegaly. TECHNIQUE: Ultrasound evaluation of the thyroid was performed with real-time and static francisco-scale imaging. COMPARISON: Comparison is made with prior study dated 02/19/2021. FINDINGS: RIGHT LOBE: The right lobe of the thyroid gland is enlarged and measures 5.4 cm x 1.5 cm x 0.9 cm. There is a homogeneous echotexture. There are no demonstrated solid, cystic or complex lesions. LEFT LOBE: The left lobe of the thyroid gland is enlarged and measures 5.1 cm x 1.5 cm x 0.9 cm. There is a homogeneous echotexture. There are no demonstrated solid, cystic or complex lesions. ISTHMUS: The isthmus measures 1 mm. The regional lymph nodes are normal. US/Thyroid IMPRESSION: Thyromegaly. No nodule is seen at this time. Electronically Signed: Richard Montgomery MD at 13:20 EDT ,
--- NOTE | 2022-04-15 10:32 | US_ITS ---
STUDY: ULTRASOUND OF THE FEMALE PELVIS - COMPLETE REASON FOR EXAM: Female, 41 years old. Menorrhagia LMP: 03/27/2022. TECHNIQUE: Transabdominal and Transvaginal TECHNICAL QUALITY: Adequate. COMPARISON: Comparison is made with prior study 02/19/2021. FINDINGS: The uterus is anteverted and is in a midline position. The uterus measures 9.3 cm x 5.5 cm x 4.6 cm. Normal uterine cervix. The endometrium is thickened and measures 12 mm in thickness, and is heterogeneous (striated). There is no demonstrated endometrial mass. There is no demonstrated myometrial mass. I.U.D. - The patient does not have an I.U.D. The right ovary is visualized. The right ovary measures 3.5 cm x 2.3 cm x 2.0 cm. Follicles are seen within the ovary. There is no visualized right adnexal mass or complex lesion. There is normal arterial and normal venous vascularity. The left ovary is visualized. The left ovary measures 2.1 cm x 2.2 cm x 1.3 cm. Follicles are seen. There is no visualized left adnexal mass or complex lesion. There is increased arterial and increased venous vascularity. There is no fluid in the cul-de-sac. The pre void volume of the bladder was 348 ml. US/Pelvic (Non ) IMPRESSION: Thickened and heterogeneous appearance of the endometrium. Prominence of the left adnexal vessels. Electronically Signed: Richard Montgomery MD at 13:27 EDT ,
--- NOTE | 2022-04-15 10:32 | US_ITS ---
STUDY: ULTRASOUND OF THE FEMALE PELVIS - COMPLETE REASON FOR EXAM: Female, 41 years old. Menorrhagia LMP: 03/27/2022. TECHNIQUE: Transabdominal and Transvaginal TECHNICAL QUALITY: Adequate. COMPARISON: Comparison is made with prior study 02/19/2021. FINDINGS: The uterus is anteverted and is in a midline position. The uterus measures 9.3 cm x 5.5 cm x 4.6 cm. Normal uterine cervix. The endometrium is thickened and measures 12 mm in thickness, and is heterogeneous (striated). There is no demonstrated endometrial mass. There is no demonstrated myometrial mass. I.U.D. - The patient does not have an I.U.D. The right ovary is visualized. The right ovary measures 3.5 cm x 2.3 cm x 2.0 cm. Follicles are seen within the ovary. There is no visualized right adnexal mass or complex lesion. There is normal arterial and normal venous vascularity. The left ovary is visualized. The left ovary measures 2.1 cm x 2.2 cm x 1.3 cm. Follicles are seen. There is no visualized left adnexal mass or complex lesion. There is increased arterial and increased venous vascularity. There is no fluid in the cul-de-sac. The pre void volume of the bladder was 348 ml. US/Transvaginal Non- IMPRESSION: Thickened and heterogeneous appearance of the endometrium. Prominence of the left adnexal vessels. Electronically Signed: Richard Montgomery MD at 13:27 EDT ,
== END | disposition home or self-care (01) ==
PROVIDERS: PCP Internal Medicine; Referring Provider Obstetrics & Gynecology; Visit Provider Obstetrics & Gynecology
DX: N92.1 Excessive and frequent menstruation with irregular cycle (principal); E04.9 Nontoxic goiter, unspecified
CPT/HCPCS: 76536; 76830; 76856

== ENCOUNTER 2022-04-30 05:36 | Day surgery (SDC) | payer MEDICAID, SELFPAY ==
[2022-04-30] VITALS (14 sets, daily range): BP systolic 97–129; BP diastolic 67–89; PULSE 53–73; RESP 12–18; TEMP 36.7–37.1; O2SAT 98–100; BMI 22.0
--- NOTE | 2022-04-30 05:55 | EKG12_ITS ---
Test Reason : PRE OP Blood Pressure : / mmHG Vent. Rate : 054 BPM Atrial Rate : 054 BPM P-R Int : 144 ms QRS Dur : 098 ms QT Int : 428 ms P-R-T Axes : 073 079 067 degrees QTc Int : 405 ms Sinus bradycardia Otherwise normal ECG Confirmed by SYDNI MCGEE, MELANIE ([id number]), editor & co founder BONILLA PALMER ([id number]) on 05/03/2022 11:50:45 AM Referred By: Vianey Mooney Confirmed By:MELANIE TROY MD
[2022-04-30 06:25] LABS: Absolute Lymphocyte Count 2.45 X10^3/uL (0.83-4.51); Basophil# 0.11 X10^3/uL; Basophil% 1.2 % (0-1); Eosinophil# 0.35 X10^3/uL; Eosinophils% 3.9 % (0-5); Hematocrit 39.4 % (37-47); Hemoglobin 13.2 g/dL (12.0-15.0); Lymphocyte # 2.45 X10^3/ul (0.83-4.51); Lymphocyte % 27.6 % (19-41); Mean Corp Hgb Conc 33.5 g/dL (32-36); Mean Corpuscular Hgb 30.6 pg (27.0-32.0); Mean Corpuscular Volume 91.4 fL (81-99); Mean Platelet Vol. 10.6 fl (6.2-12.0); Monocyte# 0.94 X10^3/uL; Monocyte% 10.6 % (0-10); NRBC Flagged by Analyzer 0 % (0-5); Neutrophil # 4.99 X10^3/uL (2.7-7.7); Neutrophil % 56.1 % (47-70); Platelet Count 271 K/mm3 (150-450); RBC Distribution Width CV 12.9 % (11.6-14.6); RBC Distribution Width SD 43.3 fl (35.1-43.9); Red Blood Count 4.31 M/mm3 (4.2-5.4); White Blood Count 8.9 K/mm3 (4.4-11.0)
--- NOTE | 2022-04-30 06:26 | HP.PCM_ITS ---
History and Physical Vital Signs ? 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 Is patient in pain?: No Allergies No Known Allergies Allergy (Verified 03/26/22 12:59) Medications amitriptyline 50 mg tablet 50 mg PO QHS #90 tab 09/27/21 [Rx Confirmed 03/26/22] hydroxyzine HCl 25 mg tablet 25 mg PO BID PRN #90 tab 02/07/22 [Rx Confirmed 03/26/22] naproxen 500 mg tablet 500 mg PO BID PRN #120 tab 02/07/22 [Rx Confirmed 03/26/22] sumatriptan succinate 25 mg tablet See Rx Instructions PO .COMPLEX #14 tablet 02/07/22 [Rx Confirmed 03/26/22] biotin 1 mg capsule 1 mg PO DAILY 03/13/22 [History Confirmed 03/26/22] cholecalciferol (vitamin D3) 50 mcg (2,000 unit) capsule 50 mcg PO DAILY 03/13/22 [History Confirmed 03/26/22] norethindrone (contraceptive) 0.35 mg tablet 0.35 mg PO QDAY #84 tablet 03/13/22 [Rx Confirmed 03/26/22] ferrous sulfate 325 mg (65 mg iron) tablet 325 mg PO DAILY #90 tab 03/14/22 [Rx Confirmed 03/26/22] Is last menstrual period known: Yes Post menopausal: No Patient : No : [facility] Medical History? Chronic migraine Fatigue Hair loss Headache Insomnia Surgical History? H/O dilation and curettage Family History? Father Diabetes HypertensionUncle DiabetesMother Breast cancer Social History? number of children:? 3 current occupational status:? unemployed sexually active:? Yes Smoking Status:? Light Smoker (<10/day) alcohol intake:? current alcohol intake frequency: holidays/special occasions only substance use type:? does not use well-balanced diet:? rarely or never caffeine:? Yes (1) what type of physical activity do you participate in:? none seatbelt use:? always do you feel safe at home:? 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 HPI TVHBS Details: ABHAY HAMMER is a 41 year old who presents for irregular bleeding,? her menses are irregular in timing, some cycles are light then the next cycle will be heavy.? Bleeding can last a few days or up to a week and then spot for a week after.? She denies any dyspareunia.? she occasionally has right lower p elvic pain. htyroid has been well controlled.? she has been on the OCP for years and still isn't well controlled so is ready to proceed with a hysterectomy.? some cramping with menses. Female Reproductive History Questions: sexually active: Yes, dyspareunia: No and PCB: No Menopausal Symptoms: Yes hot flashes, No night sweats, No weight change, No mood changes, No difficulty concentrating, No sleep problems and No change in libido Pregancy History ? ? ? 4 ? Elective abortions ? ? ? 0 Hx Para ? ? ? 3 ? Spontaneous abortions ? ? ? 1 Hx # Term Pregnancies ? ? ? 3 ? Ectopic pregnancies ? ? ? 0 Hx # Pregnancies ? ? ? 0 ? Multiple births ? ? ? 0 ? # of living children ? ? ? 3 Past Pregnancies Del. Date Name GA/Weeks Outcome Route Bth Weight Gen Labor Lgth Anesthesia Del Locatn Provider FOB 06/11/07 Maryjane ? live - full ter m ? Female ? 09/23/11 [place] 41 live - full term NS VD ? Female ? 03/16/14 [place] 41 live - full term NS VD ? Male ? ROS Const Constitutional: Denies fatigue, night sweats, weight gain or weight loss ENT ENT: Reports system reviewed and no additional complaints, except as documented Cardio Card: Denies chest pain Resp Resp: Denies cough or dyspnea GI GI: Reports as per HPI; Denies constipation, nausea or vomiting : Reports as per HPI and hot flashes; Denies nipple discharge, vaginal discharge, vaginal dryness, vaginal odor or vaginal pruritus Musc Musc: Denies arthralgias, back pain or muscle weakness Skin Skin/Breast: Reports change in hair; Denies alopecia, dry skin, breast mass, breast pain, breast skin changes or nipple discharge Neuro Neuro: Reports system reviewed and no additional complaints, except as documented Psych Psych: Reports system reviewed and no additional complaints, except as documented; Denies change in libido or difficulty concentrating Endo Endo: Denies cold intolerance, excessive sweating, heat intolerance or polydipsia Kwan/Lymph Hematologic/Lymphatic: Denies easy bleeding, Denies easy bruising and Denies lymphadenopathy Exam Const General: cooperative, healthy appearing, comfortable, no acute distress and well developed Orientation: alert [facility] Head: normal to inspection and normocephalic Ears: hearing grossly normal bilaterally and external ears normal Nose: external nose normal and nares normal Face and sinus: normal facial exam Neck Neck: normal visual inspection and no lymphadenopathy Thyroid: thyroid normal Chest Chest palpation & inspection: normal inspection of the chest Resp Effort & Inspection: normal respiratory effort Auscultation: clear to auscultation bilaterally Cardio Rate: regular rate Rhythm: regular rhythm Heart Sounds: S1 normal and S2 normal GI Inspection: normal to inspection and non-distended Palpation: soft and no hepatosplenomegaly General: bladder normal to palpation External Female Exam: normal external appearance and normal appearance of the urethra Urethra: normal appearance of the urethra, normal palpation and no discharge Speculum Exam - Vagina: normal appearance of the vagina and normal vaginal discharge Speculum Exam - Cervix: normal appearance of the cervix and nontender Bimanual Exam- Vagina & Uterus: normal bimanual exam, uterine size normal, bladder normal to palpation, uterine shape normal, No tender, uterine mobility normal, consistency normal, normal palpation and non-tender Bimanual Exam- Adnexa, other: normal adnexae, adnexae mobile, no masses and normal Pelvic Support: normal Musc Other: gross motor intact no deficits, full bilateral strength Skin General: no rashes or lesions noted Neuro General: patient alert, patient awake, moves all extremities and no focal motor deficits Motor: muscle tone normal throughout Extrem General: normal to inspection and no pedal edema Psych Appearance: grossly normal Mental Status: mental status grossly normal Affect: normal affect Speech and Movement: speech and movement normal Office Procedures Endometrial Biopsy Endometrial Biopsy Test: Yes Negative Consent Signed: Yes Time out checklist: patient, procedure, site marked/identified, positioning of patient, supplies available, allergies confirmed and team agrees on procedure tenaculum used: Yes dilator used: No Details:?Cervix prepped with betadine and pipelle inserted into uterus without complication. Specimen obtained and sent to lab for analysis. All instruments removed from vagina without complications. Excellent hemostasis noted. Results Office , Urine Office , Urine Negative ? ? Last Edit by Aster Madden on 03/26/22 13:35 Coding Level of Care Code Off vis,est,level 5 Diagnoses Menorrhagia with irregular cycle? N92.1 CPT Codes Endometrial Biopsy (37972) Assessment and Plan Assessment and Plan (1) Menorrhagia with irregular cycle: ?Status:?Chronic ?Comment: failed progestin only OCP.? plan TVHBS.? us ordered, EMB done. ? ? ? Orders:?Orders: ? Pelvic (Non )B 03/26/22 N92.1 ? ? Transvaginal Non- 03/26/22 N92.1 ?Plan - Dr. Vianey Mooney MD: After discussing the patient's diagnosis and treatment plan options, patient wishes to proceed with surgical management.? I have discussed with the patient the risks, benefits, and alternatives of the procedure which include but are not limited to risks of anesthesia, bleeding, infection, possible damage to bowel, bladder, or surrounding vasculature which could lead to additional surgery to evaluate any complications.? Patient agrees to procedure and wishes to proceed.? ACOG/uptodate references given for additional information regarding procedure.? Plan Details Other Orders: ?Orders: ? Endometrial Biopsy 03/26/22 ? ? ? POC Urine 03/26/22 N92.0 ? UPDATE- I have seen the patient and performed any clinically relevant updates to the history and physical exam. Vianey Mooney MD
[2022-04-30 06:33] LABS: Internal QC Validated? YES +Cl - CLEAR BKGD; Pregnancy, Serum, hCG Quali. NEGATIVE Negative
[2022-04-30] MEDS: Lactated Ringers 1,000 ML 40 ML IV (06:35)
[2022-04-30] MEDS: Acetaminophen 500 MG Tablet 1000 MG PO (06:35)
[2022-04-30] MEDS: Gabapentin 600 MG Tablet PO (06:35)
[2022-04-30] MEDS: Phenazopyridine 95 MG Tablet 190 MG PO (06:36)
[2022-04-30] MEDS: Scopolamine 1mg/72hr Patch 1 PATCH TD (06:36)
[2022-04-30] MEDS: Celecoxib 200 MG Capsule 400 MG PO (06:36)
[2022-04-30] MEDS: dexAMETHasone 10 MG/ML Vial 8 MG IV (06:37)
[2022-04-30] MEDS: Enoxaparin 40 MG/0.4 ML Syringe SC (06:37)
[2022-04-30 06:40] LABS: Bedside Glucose 87 mg/dL (74-106)
--- NOTE | 2022-04-30 07:30 | HYST_PTH ---
PATIENT: ABHAY HAMMER LOC: [facility] U#:[id number] AGE/SX: 41/F ROOM: RE04/30/[address]: Dr. Vianey Mooney MD : 1980 BED: DIS: 04/30/2022 SPEC #: [id number] RECD: 04/30/22 09:17 STATUS: JEFFY PATHAK #: [id number] HOA: 04/30/22 07:[address]: Vianey Mooney DEPT: SURGICAL PATHOLOGY RECD BY: Izzy Howard ENTERED: 04/30/22 09:35 SP TYPE: HYSTERECT OTHR DR: Dr. Anne-Marie Garg MD Tissues: Uterus, NOS Procedures: Surgery Specimen Level V HEADER OPERATION: ERAS, vaginal hysterectomy, salpingectomy PRE-OP DIAGNOSIS: Menorrhagia with irregular cycle TISSUE SUBMITTED: Cervix, uterus, bilateral fallopian tubes MICROSCOPIC DIAGNOSIS Uterus, hysterectomy: Cervix ? nabothian cysts. Endometrium ? disordered proliferative endometrium. Myometrium ? adenomyosis. Right and left fallopian tubes ? benign paratubal cysts. AM:thea 05/01/2022 COMMENT Case has been reviewed in consultation with Dr. Arnold who concurs with the above diagnosis. IDC:SJ MICROSCOPIC DESCRIPTION Slides are reviewed. GROSS DESCRIPTION Received in fixative is one container labeled with the patient's name and designated uterus, cervix, bilateral fallopian tubes. The specimen consists of a hysterectomy specimen consisting of uterus with cervix and detached bilateral fallopian tubes. The uterus with cervix weighs 105 gm and measures 10 x 6 x 4.5 cm. The serosal surface is zavala, glistening. The ectocervical mucosa is unremarkable. The external os is oval and patulous in contour. The endocervical canal measures 3.5 cm in length and the endocervical mucosa is unremarkable. The triangular endometrial cavity measures 4.5 cm in length and up to cm in width. The endometrium is zavala, glistening without any mass lesion and measures up to 0.4 cm in thickness. Sections of the uterine wall do not reveal any mass lesion and measures up to 2.5 cm in thickness. The fallopian tubes are not identified as right or left and measures 4 cm in length and 0.5 cm in diameter and 3.5 cm in length and 0.5 cm in diameter. Sections reveal unremarkable cut surfaces. The fimbrial end is identified. Genetics Teacher sections are submitted in eight cassettes as follows: 1??anterior cervix, 2 - posterior cervix, 3 & 4 - anterior uterine wall, 5 & 6 - posterior uterine wall, 7 ? one fallopian tube, 8 ? second fallopian tube. / SJ:rg 04/30/2022 TC:5 CPT: 04304
[2022-04-30] MEDS: Cefazolin 2 GM in 0.9% Normal Saline 100 ML IV (07:41)
[2022-04-30] MEDS: Sugammadex Sodium 200 MG/2 ML VIAL IV (08:42)
[2022-04-30] MEDS: Ondansetron 4 MG/2 ML Vial IV (08:42)
[2022-04-30] MEDS: Vasopressin 20 UNITS/ML Vial (08:42)
--- NOTE | 2022-04-30 08:46 | OP.PCM_ITS ---
Problems Associated Problem List Diagnoses (1) Menorrhagia with irregular cycle: (2) History of total vaginal hysterectomy (TVH): Report of Operation Pre-Operative Diagnosis: see A/P Post-Operative Diagnosis: same Surgery/Procedure Performed:: TVH BS Description of Surgical Findings:: enlarged boggy uterus normal ovaries right simple cyst Type of Anesthesia: General Specimen's removed: uterus, tubes Drains: bauer Fluids Replaced: crystalloid Description of Procedure: Patient was taken to the operating room and was placed under general anesthesia was prepped and draped in normal sterile fashion in the dorsal lithotomy position. Preoperative antibiotics and SCDs and Bauer catheter was placed inside the bladder. Weighted speculum was placed in the vagina and the anterior and posterior lip of the cervix was grasped with 2 Sher clamps and circumferentially injected with dilute vasopressin. A circumferential incision was made with a scalpel and the posterior cul-de-sac was entered into sharply and a longneck speculum was placed. The anterior cul-de-sac was also dissected down and entered into sharply and the uterosacral ligaments were clamped cut and suture ligated bilaterally followed by the cardinal ligaments which were Clamped cut and suture ligated bilaterally with 0 Monocryl. The uterus serially descended and progressive bites were taken bilaterally up to the level of the utero-ovarian ligament bilaterally which was clamped transected and double ligated with 0 Monocryl suture and 0 Vicryl free tie. Bilateral fallopian tubes and ovaries were well visualized and noted be within normal limits and the bilateral fallopian tubes were transected across the base with a Liseth clamp and removed and sutured with 0 Vicryl suture. Excellent hemostasis was noted. The vagina was closed with [id number] 0 Vicryl pop offs including the post erior and anterior peritoneum in the reapproximation. Excellent hemostasis was noted. All instruments removed from the vagina clear urine was noted at the end of the procedure and patient was awoken and taken recovery in stable condition. Grafts/Implants Used: none Complications none Admit VTE Documentation VTE Present on Admission: No VTE Mechan Device Prophylaxis: SCD's VTE Pharm Prophylaxis ordered?: Yes Multi Select Codes Urinary/Genital Urinary/Genital CPT Codes: 32474 TVH+BS/O <250gr uterus
--- NOTE | 2022-04-30 08:47 | DCINST_ITS ---
Discharge Instructions Procedure Hysterectomy, Vaginal Diet Discharge Diet: No restrictions Activity Discharge Activity: Return to Normal Activity, May Not Drive (while taking narcotic pain medications.) and May Shower May resume sexual activity in: 6-8 weeks Dressing / Incision Call your doctor if your incision/area has: Continuous Slow Oozing, Sudden Increased Bleeding, Increased Pain/ Swelling, Increased Redness and Foul Smelling Discharge Call your doctor if you observe: Fever of 101 or Higher, Inability to urinate, Inability to have a bowel movement and Using more than 1 pad per hour Follow Up Care Please Follow Up With: Vianey Mooney MD Test Results: Test results from this visit will be discussed in further detail at your follow- up appointment, if applicable. Discharge Plan Admission Attending Provider: Vianey Mooney Primary Care Provider: Anne-Marie Garg Discharge Orders/Prescriptions Prescriptions: New oxycodone-acetaminophen [Percocet] 5-325 mg tablet 1 tab PO Q6H PRN (Reason: pain) 7 Days Qty: 20 0RF naproxen [naproxen] 500 mg tablet 500 mg PO BID PRN PRN (Reason: Pain) Qty: 30 1RF Continued cholecalciferol (vitamin D3) 50 mcg (2,000 unit) capsule 50 mcg PO DAILY biotin 1 mg capsule 1 mg PO DAILY norethindrone (contraceptive) [Lucia] 0.35 mg tablet 0.35 mg PO QDAY Qty: 84 4RF Label Comments: PT STATES NEW RX JUST PRESCIBED TODAY HAS NOT STARTED TAKING YET. Rx Instructions: start day 1 of menstrual cycle naproxen 500 mg tablet 500 mg PO BID PRN (Reason: pain) Qty: 120 2RF hydroxyzine HCl 25 mg tablet 25 mg PO BID PRN (Reason: headache) Qty: 90 2RF Rx Instructions: Take with Naproxen as needed for Migraine/ Headache. sumatriptan succinate [Imitrex] 25 mg tablet See Rx Instructions PO .COMPLEX Qty: 14 4RF Rx Instructions: take 1 tab at onset of headache; if no relief may repeat 1 tab after at least 2 hrs; max = 4 tabs/24 hr PO ferrous sulfate 325 mg (65 mg iron) tablet 325 mg PO DAILY Qty: 90 3RF amitriptyline 50 mg tablet 50 mg PO QHS Qty: 90 3RF Other Ambulatory Orders: CBC-Complete Blood Cnt No Diff (Routine) Timeframe: 20220430 Facility: [facility] - Location: Laboratory Ordered By: Dr. Vianey Mooney Magnesium (Routine) Timeframe: 20220430 Facility: [facility] - Location: Laboratory Ordered By: Dr. Mitch Greco ,Urine (Routine) Timeframe: 20220430 Facility: [facility] - Location: Laboratory Ordered By: Dr. Mitch Greco Type & Screen - PAT ONLY (Routine) Timeframe: 20220430 Facility: [facility] - Location: Laboratory Ordered By: Dr. Vianey Mooney Referrals / Follow Up: Anne-Marie Garg MD [Primary Care Provider] - Disposition Disposition (needs filled in before D/C Order can be placed): Home, Self Care
[2022-04-30] MEDS: Lactated Ringers @ 70 MLS/HR 70 ML IV (08:53)
[2022-04-30] MEDS: Ketorolac 30 MG/ML Syringe IV (12:04)
[2022-04-30] MEDS: oxyCODONE 5 MG Tablet PO (12:04)
[2022-04-30 12:17] LABS: Hematocrit 39.8 % (37-47); Hemoglobin 13.6 g/dL (12.0-15.0); Mean Corp Hgb Conc 34.2 g/dL (32-36); Mean Corpuscular Hgb 31.1 pg (27.0-32.0); Mean Corpuscular Volume 90.9 fL (81-99); Platelet Count 290 K/mm3 (150-450); RBC Distribution Width CV 13.1 % (11.6-14.6); RBC Distribution Width SD 43.3 fl (35.1-43.9); Red Blood Count 4.38 M/mm3 (4.2-5.4); White Blood Count 21.5 K/mm3 (4.4-11.0)
== END 2022-04-30 14:41 | disposition home or self-care (01) ==
LOC: SDC 05:38 → AC 05:39
PROVIDERS: PCP Internal Medicine; Referring Provider Obstetrics & Gynecology; Visit Provider Obstetrics & Gynecology
PROC: (CPT 58260; principal; 2022-04-30 07:10)
DX: N80.0 Endometriosis of uterus (principal); N88.8 Other specified noninflammatory disorders of cervix uteri; N83.8 Other noninflammatory disorders of ovary, fallopian tube and broad ligament; F17.200 Nicotine dependence, unspecified, uncomplicated; E07.9 Disorder of thyroid, unspecified; Z79.899 Other long term (current) drug therapy
CPT/HCPCS: 58262; 00952; 82962; 83735; 84703; 85025; 85027; 86850; 86900; 86901; 88307; 93005; J7120; J2405; J3475

== ENCOUNTER → 2023-01-27 | Outpatient (CLI) | payer MEDICAID, SELFPAY ==
[2023-01-27 15:50] LABS: Absolute Lymphocyte Count 2.35 X10^3/uL (0.83-4.51); Absolute Neutrophil Count 5.6 X10^3/uL (2.0-7.7); Basophil# 0.11 X10^3/uL; Basophil% 1.2 % (0-1); Eosinophil# 0.34 X10^3/uL; Eosinophils% 3.7 % (0-5); Hematocrit 41.1 % (37-47); Hemoglobin 13.5 g/dL (12.0-15.0); Lymphocyte # 2.35 X10^3/ul (0.83-4.51); Lymphocyte % 25.7 % (19-41); Mean Corp Hgb Conc 32.8 g/dL (32-36); Mean Corpuscular Hgb 30.5 pg (27.0-32.0); Mean Corpuscular Volume 92.8 fL (81-99); Mean Platelet Vol. 11.3 fl (6.2-12.0); Monocyte# 0.71 X10^3/uL; Monocyte% 7.8 % (0-10); NRBC Flagged by Analyzer 0 % (0-5); Neutrophil % 61.3 % (47-70); Platelet Count 364 K/mm3 (150-450); RBC Distribution Width SD 44.3 fl (35.1-43.9); Red Blood Count 4.43 M/mm3 (4.2-5.4); White Blood Count 9.1 K/mm3 (4.4-11.0)
[2023-01-27 15:57] LABS: ALB/GLOB Ratio 1.5 RATIO (0.9-2.4); AST(SGOT) 31 U/L (15-37); Alanine Aminotransfer ALT/SGPT 44 U/L (13-56); Albumin, Serum 4.3 g/dL (3.2-5.0); Alkaline Phosphatase 75 U/L (45-117); Anion Gap 6 (5-15); BUN 16 mg/dL (7-18); BUN/Creat Ratio 18.4 RATIO (10-20); Calcium,Total 9.8 mg/dL (8.5-10.1); Chloride 106 mmol/L (98-107); Creatinine, Serum 0.87 mg/dL (0.55-1.02); EST Glomerular Filtration Rate 76 mL/min (>60); Est Glom Filt Rate - Afr Amer 92 mL/min (>60); Globulin 2.9 g/dL (2.2-4.2); Glucose 86 mg/dL (74-106); Protein, Total 7.2 g/dL (6.4-8.2); Sodium Level 140 mmol/L (136-145)
[2023-01-27 16:01] LABS: Vitamin D,25 Hydroxy 28.7 ng/mL
== END | disposition home or self-care (01) ==
LOC: BIMLAB 13:23
PROVIDERS: PCP Internal Medicine; Referring Provider Internal Medicine; Visit Provider Internal Medicine
DX: G43.709 Chronic migraine without aura, not intractable, without status migrainosus (principal); E55.9 Vitamin D deficiency, unspecified
CPT/HCPCS: 36415; 80053; 82306; 85025

== ENCOUNTER → 2023-06-26 | Outpatient (CLI) | payer MEDICAID, SELFPAY ==
--- NOTE | 2023-06-26 11:57 | BI_ITS ---
MAMMOGRAPHY - BILATERAL SCREENING REASON FOR EXAM: Female, 42 years old. Routine annual screening examination. PERTINENT HISTORY: Mother with breast cancer. TECHNIQUE: Digital bilateral breast karen (3D mammographic acquisition) in the CC and MLO projections. 2-D mediolateral oblique (MLO) and craniocaudad (CC) views of both breasts were obtained. CAD: Full Field Digital Mammography with Computer Added Detection was performed. COMPARISON: Comparison is made with prior study February 05, 2022. FINDINGS: Breast Composition: The breasts are extremely dense, which lowers the sensitivity of mammography. There are no dominant masses or suspicious calcifications. No other significant abnormalities are identified. There has been no significant change since the prior study. BI/SCRN MAMM (CAD)W/KAREN BILAT IMPRESSION: Stable bilateral screening mammogram. Yearly follow-up mammogram recommended. (A) ASSESSMENT CATEGORY: BIRADS Category 1: Negative. A letter regarding these results will be sent to the patient by the facility within 30 days. Approximately 10% of breast cancers are not detected by mammography. A normal mammogram should not delay biopsy of a clinically suspicious abnormality. [id number] Electronically Signed: Richard Montgomery MD at 12:29 EDT ,
[2023-06-26 14:35] LABS: Estradiol 164.3 pg/mL; Follicle Stimulating Hormone 24.3 mIU/mL
== END | disposition home or self-care (01) ==
PROVIDERS: Obstetrics & Gynecology; PCP Internal Medicine; Referring Provider Internal Medicine; Visit Provider Internal Medicine
DX: Z12.31 Encounter for screening mammogram for malignant neoplasm of breast (principal); N95.1 Menopausal and female climacteric states; Z80.3 Family history of malignant neoplasm of breast
CPT/HCPCS: 36415; 77063; 77067; 82670; 83001

== ENCOUNTER → 2024-04-12 | Outpatient (CLI) | payer MEDICAID, SELFPAY ==
[2024-04-12 19:31] LABS: Bacteria 0 SEEN /hpf (None Seen); Mucous, Urine 0 SEEN /hpf (<or=2+); Red Blood Cells-Urine 0 SEEN /hpf (0-5)
[2024-04-12 19:47] LABS: Color, Urine Yellow (Yellow); Glucose, Dipstick Normal (Normal); Ketone-Dipstick Negative (Negative); Leukocyte Esterase-Dipstick Negative /ul (Negative); Nitrite-Dipstick Negative (Negative); Occult Blood-Urine Negative /ul (Negative); Protein-Dipstick Negative (Negative); Specific Gravity, Urine 1.015 (1.002-1.030); Urine Bilirubin Dipstick Negative (Negative); Urine Clarity Sl. Cloudy (Clear); Urine Urobilinogen Normal (Normal)
[2024-04-12 20:12] LABS: Squamous Epithelial Cells - UA 0-5 SEEN /hpf (5-10); White Blood Cells 0-5 SEEN /hpf (0-5)
== END | disposition home or self-care (01) ==
PROVIDERS: PCP Internal Medicine; Referring Provider Internal Medicine; Visit Provider Internal Medicine
DX: R10.9 Unspecified abdominal pain (principal)
CPT/HCPCS: 81001

== ENCOUNTER → 2024-07-26 | Outpatient (CLI) | payer MEDICAID, SELFPAY ==
--- NOTE | 2024-07-26 10:42 | BI_ITS ---
MAMMOGRAPHY - BILATERAL SCREENING REASON FOR EXAM: Female, 43 years old. Routine annual screening examination. PERTINENT HISTORY: Mother with breast cancer. TECHNIQUE: Digital bilateral breast karen (3D mammographic acquisition) in the CC and MLO projections. 2-D mediolateral oblique (MLO) and craniocaudad (CC) views of both breasts were obtained. CAD: Full Field Digital Mammography with Computer Added Detection was performed. COMPARISON: Comparison is made with prior study dated June 26, 2023 and February 05, 2022. FINDINGS: Breast Composition: The breasts are extremely dense, which lowers the sensitivity of mammography. There are no dominant masses or suspicious calcifications. No other significant abnormalities are identified. There has been no significant change since the prior study. BI/SCRN MAMM (CAD)W/KAREN BILAT IMPRESSION: Stable bilateral screening mammogram. Yearly follow-up mammogram recommended. (A) ASSESSMENT CATEGORY: BIRADS Category 1: Negative. A letter regarding these results will be sent to the patient by the facility within 30 days. Approximately 10% of breast cancers are not detected by mammography. A normal mammogram should not delay biopsy of a clinically suspicious abnormality. [id number] Electronically Signed: Richard Montgomery MD at 11:11 EDT ,
== END | disposition home or self-care (01) ==
LOC: OPBI 10:42
PROVIDERS: PCP Internal Medicine; Referring Provider Internal Medicine; Visit Provider Internal Medicine
DX: Z12.31 Encounter for screening mammogram for malignant neoplasm of breast (principal); Z80.3 Family history of malignant neoplasm of breast
CPT/HCPCS: 77063; 77067

== ENCOUNTER → 2024-08-05 | Outpatient (CLI) | payer MEDICAID, SELFPAY ==
--- NOTE | 2024-08-05 09:46 | US_ITS ---
STUDY: ULTRASOUND OF THE FEMALE PELVIS - COMPLETE REASON FOR EXAM: Female, 43 years old. pelvic pain rlq LMP: Status post hysterectomy. TECHNIQUE: Transabdominal and Transvaginal TECHNICAL QUALITY: Adequate. COMPARISON: Comparison is made with prior study dated April 15, 2022. FINDINGS: The patient is status post hysterectomy. The right ovary measures 2.4 cm x 2.3 cm x 1.7 cm. There is a 1 cm x 0.8 cm x 0.6 cm dominant follicle. The left ovary is visualized. The left ovary measures 3.2 cm x 2.9 cm x 2.7 cm. There is a 3 cm x 2.8 cm by 2 cm complex cyst in the left ovary. There is no visualized left adnexal mass or complex lesion. There is normal arterial and normal venous vascularity. There is no fluid in the cul-de-sac. US/Pelvic w/ Transvaginal IMPRESSION: Status post hysterectomy. 3 cm x 2.8 cm x 2 cm left ovarian complex cyst. Electronically Signed: Richard Montgomery MD at 14:03 EDT ,
== END | disposition home or self-care (01) ==
PROVIDERS: PCP Internal Medicine; Referring Provider Nurse Practitioner Women's Health; Visit Provider Nurse Practitioner Women's Health
DX: R10.2 Pelvic and perineal pain (principal)
CPT/HCPCS: 76830; 76856

== ENCOUNTER → 2024-09-07 | Outpatient (CLI) | payer MEDICAID, SELFPAY ==
--- OUTSIDE RECORDS SUMMARY | 2024-09-07 12:28 | XMS RPT_ITS | CCD ---
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 Name Role Phone Andrea, Elaina Attending Unavailable No Doctor Assigned, Nodr Primary Care Unavail able Manolo Evans Admitting Unavailable Manolo Evans Attending Unavailable No Doctor Assigned, Nodr Primary Care Unavail able Andrea, Elaina Admitting Unavailable Andrea, Elaina Attending Unavailable No Doctor Assigned, Nodr Primary Care Unavail able Andrea, Elaina Admitting Unavailable Andrea, Elaina Attending Unavailable No Doctor Assigned, Nodr Primary Care Unavail able Unavailable Primary Care Provider Unavailabl e Free, Text Entry Unavailable Unavailable Amanda Harrington Unavailable Unavailabl e Unavailable Primary Care Provider Unavailabl e Pending, Provider Primary Care Unavailable Amanda Harrington Attending Unavailable Carolina Garg MD Primary Care Provider [phone] OSVALDO DAVENPORT Attending Unavailable OSVALDO DAVENPORT Admitting Unavailable OSVALDO DAVENPORT Referring Unavailable OSVALDO DAVENPORT Attending Unavailable YOSVANY, EFEWONGBE B Primary Care Unavailable OSVALDO DAVENPORT Referring Unavailable YOSVANY, EFEWONGBE B Primary Care Unavailable NATI ANN Attending Unavailable YOSVANY, EFEWONGBE B Primary Care Unavailable OSVALDO DAVENPORT Referring Unavailable OSVALDO DAVENPORT Referring Unavailable MARISSA, NATI Attending Unavailable YOSVANY, EFEWONGBE B Primary Care Unavailable Carolina Garg MD Primary Care Provider [phone] Carolina Garg MD Primary Care Provider [phone] Medications Current Medications Medication Drug Class(es) Dates Sig (Normalized) Sig (Original) acetaminophen 325 mg / HYDROcodone bitartrate 5 mg oral tablet (6 sources) Opioid Agonist Start: 09-19-2022 End: 10-04-2022 take 1 tablet by mouth every six hours as needed for pain HYDROcodone-acetam inophen (NORCO) 5-325 mg per tablet Indications: Closed displaced fracture of neck of fifth metacarpal bone of right hand with routine healing, subsequent encounter Take 1 tablet by mouth every 6 hours as needed for pain for up to 7 days. 20 tablet 0 09/27/2022 10/04/2022 Active Comment on above: Caution federal law prohibits the transfer of this drug to any person other than the person for whom it was prescribed.May cause drowsiness. Alcohol may intensify this effect. Use care when operating dangerous machinery.This product contains acetaminophen. Do not use with any other product containing acetaminophen to prevent possible liver damage.Using more of this medication than prescribed may cause serious breathing problems. Take 1 tablet by munira th every 6 hours as needed for up to 5 days. Take 1 tablet by munira th every 6 hours as needed. Take 1 tablet by munira th every 6 hours as needed for pain for up to 7 days. amitriptyline hydrochloride 50 mg oral tablet (10 sources) Tricyclic Antidepressant Start: 07-03-2022 take 1 tablet by mouth once daily as needed amitriptyline (ELAVIL) 50 mg tablet Take 1 tablet by mouth once daily as needed. 07/03/2022 Active Comment on above: Source=Jose Elias, Medication=AMITRIPTYLINE HCL 50 MG TABLET, Duration=90, Date Last Modified/Filled=03-Jul-2022 Take 1 tablet by munira th once daily as needed. Biotin (6 sources) BIOTIN ORAL Take by mouth once daily. Active BIOTIN ORAL Take by mouth once daily. 0 Active Comment on above: Take by mouth once d aily. cholecalciferol, vitamin D3, (VITAMIN D3 ORAL) (6 sources) cholecalciferol, vitamin D3, (VITAMIN D3 ORAL) Take by mouth once daily. Active cholecalciferol, vitamin D3, (VITAMIN D3 ORAL) Take by mouth once daily. 0 Active Comment on above: Take by mouth once d aily. hydrOXYzine hydrochloride 25 mg oral tablet (10 sources) Antihistamine Start: 08-27-20 take 1 tablet by mouth once daily hydrOXYzine HCl (ATARAX) 25 mg tablet Take 1 tablet by mouth once daily. 08/27/2022 Active Comment on above: Source=[employer], Medication=HYDROXYZINE HCL 25 MG TABLET, Duration=45, Date Last Modified/Filled=27-Aug-2022 Take 1 tablet by munira once daily. naproxen 500 mg oral tablet (11 sources) Nonsteroidal Anti-inflammatory Drug Start: 04-26-20 End: 09-25-20 take 1 tablet by mouth every twelve hours as needed naproxen (NAPROSYN) 500 mg tablet Take 500 mg by mouth twice daily as needed. 0 04/26/2021 09/25/2022 Active NAPROXEN ORAL Ta ke by mouth as needed. Active NAPROXEN ORAL Ta ke by mouth as needed. 0 Active Comment on above: Source=Jose Elias, Medication=NAPROXEN 500 MG TABLET, Duration=30, Date Last Modified/Filled=27-Aug-2022 Check with your doct or before becoming .May cause drowsiness or dizziness.Obtain medical advice before taking any non-prescription drugs as some may affect the action of this medication.Take with food or milk. Take 500 mg by mouth twice daily as needed. Take by mouth as nee ded. SUMAtriptan 25 mg oral tablet (10 sources) Serotonin-1b and Serotonin-1d Receptor Agonist Start: 08-27-20 SUMAtriptan (IMITREX) 25 mg tablet Take at onset of migraine 08/27/2022 Active Comment on above: Source=Jose Elias, Medication=SUMATRIPTAN SUCCINATE 25 MG TABLET, Duration=2, Date Last Modified/Filled=27-Aug-2022 Take at onset of zainab mesha Completed/Discontinued Medications Medication Drug Class(es) Dates Sig (Normalized) Sig (Original) [id number] 200 actuat albuterol 0.09 mg/actuat metered dose inhaler (1 source) beta2-Adrenergic Agonist Start: 02-13-2021 End: 02-22-2021 take 2 puff(s) by inhalation every four hours as needed for wheezing albuterol 90 mcg/inh inhalation aerosol ; 2 puff(s) inhaled every 4 hours, As Needed for wheezing or shortness of breath Quantity: 1 Refills: 0 Ordered: 13-Feb-2021 Rossi Steele Start: 13-Feb-2021 End: 22-Feb-2021 Status: Completed Generic Substitution Allowed Comments: For inhalation only.It is very important that you take or use this exactly as directed. Do not skip doses or discontinue unless directed by your doctor.Obtain medical advice before taking any non-prescription drugs as some may affect the action of this medication.Shake well before use. Comment on above: For inhalation only. It is very important that you take or use this exactly as directed. Do not skip doses or discontinue unless directed by your doctor.Obtain medical advice before taking any non-prescription drugs as some may affect the action of this medication.Shake well before use. amoxicillin 500 mg oral capsule (1 source) Penicillin-class Antibacterial Start: 02-09-2021 End: 02-18-2021 take 1 capsule by mouth twice daily amoxicillin 500 mg oral capsule ; 1 cap(s) orally 2 times a day Quantity: 20 Refills: 0 Ordered: 09-Feb-2021 Verónica Cardenas Start: 09-Feb-2021 End: 18-Feb-2021 Status: Discontinued Generic Substitution Allowed Comments: Finish all this medication unless otherwise directed by prescriber. Comment on above: Finish all this medi cation unless otherwise directed by prescriber. azithromycin 250 mg oral tablet (1 source) Macrolide Antimicrobial Start: 02-13-2021 End: 02-17-2021 Zithromax Z-Adam 250 mg oral tablet ; 2 tab(s) by mouth at once on day 1, then 1 tablet once a day on days 2-5 Quantity: 6 Refills: 0 Ordered: 13-Feb-2021 Rossi Steele Start: 13-Feb-2021 End: 17-Feb-2021 Status: Completed Generic Substitution Allowed Comments: Do not take dairy products, antacids, or iron preparations within one hour of this medication.Finish all this medication unless otherwise directed by prescriber. Comment on above: Do not take dairy pr oducts, antacids, or iron preparations within one hour of this medication.Finish all this medication unless otherwise directed by prescriber. Problems Active Problems Problem Classification Problem Date Documented Da te Episodic/Chronic E Codes: Struck by; against (1 source) Other cause of strike by thrown, projected or falling object, initial encounter; Translations: [Oth cause of strike by thrown, projected or fall obj, init] Onset: 09-19-2022 Episodic Fracture of upper limb (20 sources) Fracture of neck of metacarpal bone; Translations: [Closed fracture of metacarpal bone(s), site unspecified] Onset: 09-19-2022 09-19-2022 Episodic Other connective tissue disease (1 source) Pain in right hand; Translations: [Pain in right hand] Episodic Other connective tissue disease (1 source) Pain in right hand; Translations: [Pain in right hand] Onset: 09-19-2022 Episodic Substance-related disorders (7 sources) Tobacco user; Translations: [Nicotine dependence, unspecified, uncomplicated] Onset: 09-24-2022 09-24-2022 Chronic Thyroid disorders (7 sources) Goiter; Translations: [Nontoxic goiter, unspecified] Onset: 03-13-2022 09-24-2022 Chronic Unclassified (2 sources) RT HAND INJURY 09-19-2022 Comment on above: RT HAND INJURY Unclassified (7 sources) Transformed migraine; Translations: [Chronic migraine] Onset: 02-01-2022 09-24-2022 Past or Other Problems Problem Classification Problem Date Documented Date Episodic/Chronic Acute posthemorrhagic anemia (7 sources) Acute posthemorrhagic anemia; Translations: [Acute posthemorrhagic anemia] Onset: 09-24-2022 09-24-2022 Episodic Other upper respiratory infections (1 source) Sore throat symptom; Translations: [Sore throat] Episodic Residual codes; unclassified (7 sources) Insomnia; Translations: [Insomnia, unspecified] Onset: 09-24-2022 09-24-2022 Episodic Viral infection (1 source) Viral disease; Translations: [Viral syndrome] Episodic Results Test Name Value Interpretation Reference Range Facility HLA TYPING (SOLID ORGAN)on 0 01-05-2024 A 24,32 [facility] Comment on above: Performed By: #### H LAB #### [facility] (DEFAULT) [address] [place] [address] B 62,57 [facility] Comment on above: Performed By: #### H LAB #### [facility] (DEFAULT) [address] [place] [id number] BW 6,4 [facility] Comment on above: Performed By: #### H LAB #### [facility] (DEFAULT) [address] [place] [address] C 1,6 [facility] Comment on above: Performed By: #### H LAB #### [facility] (DEFAULT) [address] [place] [address] 84412 DPA1* 01:03 [facility] Comment on above: Performed By: #### H LAB #### [facility] (DEFAULT) [address] [place] [address] 95154 DPA11 - [facility] Comment on above: Performed By: #### H LAB #### [facility] (DEFAULT) [address] [place] [address] 84695 DPB1* DPB11 04:01 [facility] Comment on above: Performed By: #### H LAB #### [facility] (DEFAULT) [address] [place] [address]1238 DPB1*DPB1A 03:01 [facility] Comment on above: Performed By: #### H LAB #### [facility] (DEFAULT) [address] [place] [address] 84525 DQA1* 03:02 [facility] Comment on above: Performed By: #### H LAB #### [facility] (DEFAULT) [address] [place] [address] 96672 DQA1*DQA11 05:01 [facility] Comment on above: Performed By: #### H LAB #### [facility] (DEFAULT) [address] [place] [address] 88562 DQB1 2,9 [facility] Comment on above: Performed By: #### H LAB #### [facility] (DEFAULT) [address] [place] [address] 88877 DQB1* 02:01 [facility] Comment on above: Performed By: #### H LAB #### [facility] (DEFAULT) [address] [place] [address] 00002 DQB1* - DQB11 03:03 [facility] Comment on above: Performed By: #### H LAB #### [facility] (DEFAULT) [address] [place] [address] [address] 17,9 [facility] Comment on above: Performed By: #### H LAB #### [facility] (DEFAULT) [address] [place] [address] DR51,52,53 52,53 [facility] Comment on above: Performed By: #### H LAB #### [facility] (DEFAULT) [address] [place] [address] 19121 DRB1* 03:01 [facility] Comment on above: Performed By: #### H LAB #### [facility] (DEFAULT) [address] [place] [address] 80694 DRB1* - DRB11 09:01 [facility] Comment on above: Performed By: #### H LAB #### [facility] (DEFAULT) [address] [place] [address] 68348 DRB3* 01:01 [facility] Comment on above: Performed By: #### H LAB #### [facility] (DEFAULT) [address] [place] [address] 23353 DRB4* 01:03 [facility] Comment on above: Performed By: #### H LAB #### [facility] (DEFAULT) [address] [place] [address] 58598 HLA A* 24:02 [facility] Comment on above: Performed By: #### H LAB #### [facility] (DEFAULT) [address] [place] [address] 56942 HLA A* - HLAAA 32:01 [facility] Comment on above: Performed By: #### H LAB #### [facility] (DEFAULT) [address] [place] [address] 70412 HLA B* 15:01 [facility] Comment on above: Performed By: #### H LAB #### [facility] (DEFAULT) [address] [address] HLA B* - HLABBB 57:01 Normal [facility] Comment on above: Performed By: #### H LAB #### [facility] (DEFAULT) [address] [address] HLA C* 01:02 [facility] Comment on above: Performed By: #### H LAB #### [facility] (DEFAULT) [address] [address] HLA C* - HLACC 06:02 [facility] Comment on above: Performed By: #### H LAB #### [facility] (DEFAULT) [address] [address] HLA INTERPRETATION Normal [facility] Comment on above: Result Comment: LIST ED AMBIGUITIES ARE NOT EXCLUDED: DPB1*1321:11/1321:11/1435:11/1443:01Q Testing performed by NGS (next-generation sequencing) and/or SSOP (sequence-specific oligonucleotide probe methodology). Additional testing may be performed by real-time PCR (qPCR).Some of the reagents used for testing in the Clinical Histocompatibility Laboratory have yet to be approved by the FDA. Our certification by CLIA to perform high complexity tests allows us to use these reagents in the context of a stringent QC program, and obviates the need for FDA approval.Testing performed by the [facility] Clinical Histocompatibility Laboratory. [facility] number: [id number]. CLIA number: [id number], Director: Morgan Garcia, PhD, F([facility]). Performed By: #### H LAB #### [facility] (DEFAULT) [address] [address] XR HAND 3V PA/LAT/OBL RTon 0 11-14-2022 XR HAND 3V PA/LAT/OBL RT * * *Final Report* * * DATE OF EXAM: Nov 14 2022 10:39AM WRX 5346 - XR HAND 3V PA/LAT/OBL RT / PROCEDURE REASON: Closed displaced fracture of shaft of fifth metacarpal bone of right hand with r * * * * Physician Interpretation * * * * EXAMINATION: XR HAND 3V PA/LAT/OBL RT HISTORY: Closed displaced fracture of shaft of fifth metacarpal bone of right hand with routine healing, subsequent encounter VIEWS: PA, oblique and lateral. COMPARISON: 10/02/2022. FINDINGS: Plated right fifth metacarpal diaphysis fracture. Faint callus. Fracture lucency remains visible. No loss of fixation. IMPRESSION: Healing plated right fifth metacarpal fracture. Heel Sprayer First: PSCMaureen Transcribe Date/Time: Nov 17 2022 4:00P Dictated by : Linda ZELAYA MD This examination was interpreted and the report reviewed and electronically signed by: Linda ZELAYA MD on Nov 17 2022 4:02PM EST [id number] Normal [facility] XR HAND GENERAL 3V PA/LAT/OB L RIGHTon 11-14-2022 [facility] CNOVon 10-07-2022 CNOV Office Visit (ORTHWS ) -------- SHANDA HAMMER ([id number]) 1980 F Date Time Provider Department 10/07/22 10:00 AM NATI ANN During your visit today, we recorded the following information about you: Kim Escobedo RN 10/07/2022 10:59 AM Signed Patient presents with: Right Hand - Established Patient, Post Op AMB ROOMING INTAKE FLOWSHEET DATA Pain Pain Level: 5 Description: Throbbing, Aching Duration Amount of Time: 2 Duration Units: Weeks Frequency: Intermittent Intervention/Comfort measure: Medication Pt c/o cramping in hand. Nati Ann PA-C 10/07/2022 10:59 AM Signed Nati Ann PA-C Department of Orthopaedics Orthopaedics [address] [place] [address] Dept: [phone] Dept October 07, 2022 CHIEF COMPLAINT: Established Patient and Post Op of the Right Hand. ASSESSMENT: S62.326D Closed displaced fracture of shaft of fifth metacarpal bone of right hand with routine healing, subsequent encounter (primary encounter diagnosis) SUMMARY/PLAN: Patient presents 2 weeks status post ORIF of right fifth metacarpal fracture. She is doing well, having some itching and stiffness as well as some 5 out of 10 aching pain. We will get her into a functional brace today, we discussed encouraging gentle range of motion of the hand but to avoid any heavy lifting, pushing or pulling with the operative hand. We also discussed proper hygiene, handwashing. We will see her back in 1 month as planned. Exam: Incision site is well approximated without erythema or drainage. There is mild but appropriate edema as well as some ecchymosis extending down into the ulnar border of the wrist and up into the middle, ring and pinky digits. Patient is able to form a loose composite fist and extend all digits with no malrotation. Imaging: IMPRESSION: Status post ORIF of fifth metacarpal shaft fracture in near-anatomic alignment. Heel Sprayer First: PSCB Transcribe Date/Time: Oct 02 2022 2:41P Dictated by : PETTY GRAJEDA MD This examination was interpreted and the report reviewed and electronically signed by: PETTY GRAJEDA MD on Oct 02 2022 2:45PM EST Results-Findings * * *Final Report* * * DATE OF EXAM: Oct 02 2022 2:37PM WOX 5346 - XR HAND 3V PA/LAT/OBL RT / PROCEDURE REASON: Closed displaced fracture of shaft of fifth metacarpal bone of right hand, initi * * * * Physician Interpretation * * * * CLINICAL INDICATION: Closed fracture follow-up TECHNIQUE: 3 view radiographic study of the right hand COMPARISON: Intraoperative fluoroscopic images dated September 27, 2022 FINDINGS: A surgical plate and multiple screw device transfixes a fracture of the fifth metacarpal shaft in near anatomic alignment without radiographic evidence of hardware complications. No additional abnormality identified. Ms. Shanda Hammer was advised as to contrast therapies and/or to take analgesics/anti-inflamma tories as needed and all contraindications were reviewed. Supporting Information Below: Medications: Current Outpatient Medications Medication Sig NAPROXEN ORAL Take by mouth as needed. cholecalciferol, vitamin D3, (VITAMIN D3 ORAL) Take by mouth once daily. BIOTIN ORAL Take by mouth once daily. hydrOXYzine HCl (ATARAX) 25 mg tablet Take 1 tablet by mouth once daily. SUMAtriptan (IMITREX) 25 mg tablet Take at onset of migraine amitriptyline (ELAVIL) 50 mg tablet Take 1 tablet by mouth once daily as needed. No current facility-administered medications for this visit. Allergies: Patient has no known allergies. This note was partially generated using [employer] voice recognition system, and there may be some incorrect words, spellings, and punctuation that were not noted in checking the note before saving. Nati Ann PA-C Referring Provider: OSVALDO DAVENPORT [[id number]] Allergies As of Date: 10/07/2022 (No Known Allergies) Date Reviewed: 10/07/2022 Reviewed by: Nati Ann PA-C - Fully Assessed Reason for Visit: Established Patient [175] Post Op [174] Primary Visit Diagnosis:Closed displaced fracture of shaft of fifth metacarpal bone of right hand with routine healing, subsequent encounter [S65.189D] Prescriptions as of 10/07/2022 - NAPROXEN ORAL Take by mouth as needed. - cholecalciferol, vitamin D3, (VITAMIN D3 ORAL) Take by mouth once daily. - BIOTIN ORAL Take by mouth once daily. - hydrOXYzine HCl (ATARAX) 25 mg tablet Take 1 tablet by mouth once daily. - SUMAtriptan (IMITREX) 25 mg tablet Take at onset of migraine - amitriptyline (ELAVIL) 50 mg tablet Take 1 tablet by mouth once daily as needed. Problem List As Of Date 10/07/2022 Noted Resolved Anemia due to acute blood loss [D62] 09/24/2022 Chronic migraine [[id number]] 02/01/2022 Fracture of neck of metacarpal bone [S62.659A] (more content not included)... Normal [facility] XR HAND 3V PA/LAT/OBL RTon 1 12-02-2021 XR HAND 3V PA/LAT/OBL RT * * *Final Report* * * DATE OF EXAM: Oct 02 2022 2:37PM WOX 5346 - XR HAND 3V PA/LAT/OBL RT / PROCEDURE REASON: Closed displaced fracture of shaft of fifth metacarpal bone of right hand, initi * * * * Physician Interpretation * * * * CLINICAL INDICATION: Closed fracture follow-up TECHNIQUE: 3 view radiographic study of the right hand COMPARISON: Intraoperative fluoroscopic images dated September 27, 2022 FINDINGS: A surgical plate and multiple screw device transfixes a fracture of the fifth metacarpal shaft in near anatomic alignment without radiographic evidence of hardware complications. No additional abnormality identified. IMPRESSION: Status post ORIF of fifth metacarpal shaft fracture in near-anatomic alignment. Heel Sprayer First: blogTV Transcribe Date/Time: Oct 02 2022 2:41P Dictated by : PETTY RGAJEDA MD This examination was interpreted and the report reviewed and electronically signed by: PETTY GRAJEDA MD on Oct 02 2022 2:45PM EST [id number] Normal [facility] XR Hand - right PA and Later al and Obliqueon 10-02-2022 IMPRESSION: Status post ORIF of fifth metacarpal shaft fracture in near-anatomic alignment. Heel Sprayer First: [employer]TV Transcribe Date/Time: Oct 02 2022 2:41P Dictated by : PETTY GRAJEDA MD This examination was interpreted and the report reviewed and electronically signed by: PETTY GRAJEDA MD on Oct 02 2022 2:45PM EST DIVISION OF RADIOLOGY * * *Final Report* * * DATE OF EXAM: Oct 02 2022 2:37PM WOX 5346 - XR HAND 3V PA/LAT/OBL RT / PROCEDURE REASON: Closed displaced fracture of shaft of fifth metacarpal bone of right hand, initi * * * * Physician Interpretation * * * * CLINICAL INDICATION: Closed fracture follow-up TECHNIQUE: 3 view radiographic study of the right hand COMPARISON: Intraoperative fluoroscopic images dated September 27, 2022 FINDINGS: A surgical plate and multiple screw device transfixes a fracture of the fifth metacarpal shaft in near anatomic alignment without radiographic evidence of hardware complications. No additional abnormality identified. DIVISION OF RADIOLOGY Provider, [facility] - 10/02/2022 * * *Final Report* * * DATE OF EXAM: Oct 02 2022 2:37PM WOX 5346 - XR HAND 3V PA/LAT/OBL RT / PROCEDURE REASON: Closed displaced fracture of shaft of fifth metacarpal bone of right hand, initi * * * * Physician Interpretation * * * * CLINICAL INDICATION: Closed fracture follow-up TECHNIQUE: 3 view radiographic study of the right hand COMPARISON: Intraoperative fluoroscopic images dated September 27, 2022 FINDINGS: A surgical plate and multiple screw device transfixes a fracture of the fifth metacarpal shaft in near anatomic alignment without radiographic evidence of hardware complications. No additional abnormality identified. IMPRESSION IMPRESSION: Status post ORIF of fifth metacarpal shaft fracture in near-anatomic alignment. Heel Sprayer First: PSCB Transcribe Date/Time: Oct 02 2022 2:41P Dictated by : PETTY GRAJEDA MD This examination was interpreted and the report reviewed and electronically signed by: PETTY GRAJEDA MD on Oct 02 2022 2:45PM EST [facility] Radiology Study observation (narrative) [facility] XR Hand - right PA and Later al and ObliqueOrdered By: [facility]cf Provider on 10-02-2022 [facility] ANES POSTPROC EVALon 022 ANES POSTPROC EVAL HNO ID: [id number] Author: Ilya Kaur MD Service: ? Author Type: Anesthesiologist Type: Anesthesia Postprocedure Evaluation Filed: 09/27/2022 7:54 PM Note Text: POST ANESTHESIA EVALUATION NOTE : 1980 Procedure Summary Date: 09/27/22 Room / Location: [place] Anesthesia Start: 152 Anesthesia Stop: 165 Procedure: ORIF METACARPAL (Right: Finger little ) Diagnosis: Closed displaced fracture of shaft of fifth metacarpal bone of right hand, initial encounter (Closed displaced fracture of shaft of fifth metacarpal bone of right hand, initial encounter [S62.326A]) Surgeons: Osvaldo Davenport MD Responsible Provider: Ilya Kaur MD Anesthesia Type: general ASA Status: 3 Anesthesia Type: general Airway Type: LMA Last Vitals Vitals Value Taken Time BP 123/63 09/27/22 1730 Temp WNL 09/27/221952 Pulse 54 09/27/22 1742 Resp 21 [id number] SpO2 100 % 09/27/221741 Vitals shown include unvalidated device data. Post Anesthesia Patient Status Patient Evaluation: bedside. Anticipated Disposition: phase 2 then home. Neurological Status: aware and responsive. Pulmonary Status: breathing comfortably on room air Airway Control: returned to baseline unsupported. Cardiovascular Status: stable. Pain Management: clinically adequate Postoperative Hydration: acceptable. Intraoperative Events: no significant anesthesia events Post Operative Nausea/Vomiting Status: no significant post operative nausea or vomiting Recommendation: continue current plan of care. Anesthesia Observations No Documentation SIGNATURE: Ilya Kaur MD PATIENT NAME: Shanda Hammer DATE: September 27, 2022 TIME: 7:53 PM CSN: [id number] [facility] ANES PRE-OPon 09-27-2022 ANES PRE-OP HNO ID: [id number] Author: Michelle Brady MD Service: ? Author Type: Anesthesiologist Type: Anesthesia Preprocedure Evaluation Filed: 09/27/2022 2:24 PM Note Text: ANESTHESIOLOGY DAY OF SURGERY NOTE : 1980 Procedure Information Date/Time: 09/27/22 1450 Procedure: ORIF METACARPAL (Right: Finger little ) Location: [place] OR01 [place] Surgeons: Osvaldo Davenport MD Estimated body mass index is 20.36 kg/m? as calculated from the following: Height as of 09/24/22: 170.2 cm (5' 7 ). Weight as of 09/24/22: 59 kg (130 lb). Most recent hematocrit and potassium results: No results found for this basename: HCT,HEMATOCRIT,K,POTASSI UM Relevant Problems CARDIO (+) Chronic migraine NEURO-PSYCH (+) Chronic migraine I - PHYSICAL EVALUATION AIRWAY Patient intubated: No. Tracheostomy tube not present Mallampati: II. TM distance: >3 FB. Neck ROM: full ROM without neurological symptoms. Mouth opening: adequate. Short neck: no. Thick neck: no Mays present: no DENTAL Dental findings: teeth intact. Additional exam findings: yes. CARDIOVASCULAR Rhythm: regular Rate: normal PULMONARY Breath sounds clear to auscultation. II - ANESTHESIA PLAN ASA Score: 3 Anesthetic Plan: general Airway type: LMA The patient is a current smoker. NPO Status: adequate Beta Sarkis Monitoring Plan Monitoring plan: Standard ASA. Post Procedure Analgesic Plan Postoperative analgesic plan: parenteral or oral opioids and multimodal analgesia. Informed Consent Anesthetic risks, benefits, alternatives, personnel and consent discussed: yes. Patient / Responsible Green Party agrees to proceed: yes Patient / Surrogate agrees to blood products: blood products not planned DNR status not reviewed with patient and/or family prior to surgery. Significant changes in the patient condition since the History and Physical, not otherwise documented in primary service progress note: no. Potential Anesthesia issues that may suggest increased risk of complications or contraindication to planned procedure: none. Vitals Value Taken Time BP 123/60 09/27/22 1349 Pulse Resp 14 09/27/22 1349 Temp 36.8 ?C (98.2 ?F) 09/27/22 1349 SpO2 98 % 09/27/22 1349 Facility-Administered Medications as of 09/27/2022 Medication Dose Route Frequency - lidocaine 10 mg/mL (1 %) 1-2 mg injection (XYLOCAINE) 0.1-0.2 mL INTRADERMAL PRN - lactated ringers iv infusion 5-30 mL/hr INTRAVENOUS CONTINUOUS - NaCl 0.9% iv flush bag 20 mL INTRAVENOUS PRN - ceFAZolin iv piggyback 2 g in D5W (iso-osmotic) 100 mL (ANCEF) 2 g INTRAVENOUS Pre-Op Once - [COMPLETED] acetaminophen 1,000 mg tab(s) (TYLENOL) 1,000 mg ORAL Pre-Op Once - midazolam (PF) 1-2 mg injection (VERSED) 1-2 mg INTRAVENOUS ONCE - scopolamine 1 mg over 3 days 1 Patch (TRANSDERM-SCOP) 1 Patch TRANSDERMAL q 72 HR And - [START ON 09/30/2022] scopolamine - REMOVE PATCH OTHER q 72 HR And - scopolamine - VERIFY patch OTHER q 8 H - [COMPLETED] promethazine 12.5 mg tab(s) (PHENERGAN) 12.5 mg ORAL Pre-Op Once Outpatient Medications as of 09/27/2022 Medication Sig - amitriptyline (ELAVIL) 50 mg tablet Take 1 tablet by mouth once daily as needed. - NAPROXEN ORAL Take by mouth as needed. - cholecalciferol, vitamin D3, (VITAMIN D3 ORAL) Take by mouth once daily. - BIOTIN ORAL Take by mouth once daily. - [] naproxen (NAPROSYN) 500 mg tablet Take 500 mg by mouth twice daily as needed. - hydrOXYzine HCl (ATARAX) 25 mg tablet Take 1 tablet by mouth once daily. - SUMAtriptan (IMITREX) 25 mg tablet Take at onset of migraine I have interviewed and examined the patient. I have reviewed the medical record and/or the pre-anesthesia evaluation, pertinent labs, and test results. This contains updated information obtained within 48 hours of Surgery/Procedure. SIGNATURE: Michelle Brady MD PATIENT NAME: Shanda Hammer DATE: September 27, 2022 TIME: 2:24 PM CSN: [id number] [facility] OPERATIVE NOon 09-27-2022 OPERATIVE NO HNO ID: [id number] Author: Osvaldo Davenport MD Service: Orthopaedic Surgery Author Type: Physician Type: Operative Report Filed: 09/30/2022 12:47 PM Note Text: OPERATIVE/PROCEDURE REPORT LOG ID: [id number] SURGERY/PROCEDURE DATE: 09/27/2022 INCISION/PROCEDURE START TIME: 3:41 PM INCISION CLOSE/PROCEDURE END TIME: 4:43 PM SURGEON(S)/PROCEDURALIST (S) AND BIOLOGIST(S): Surgeon(s) and Role: * Osvaldo Davenport MD - Primary Physician Veterans' Coordinator: Nati Ann PA-C SURGERY/PROCEDURE(S): Right, 5th metacarpal shaft, open reduction and internal fixation. ANESTHESIA: General with regional block. SURGERY/PROCEDURE DETAILS: This is a pleasant, 41 yr old [id number] female who had heavy garbage can land on her hand, injured the right hand. She was found to have a comminuted and displaced small finger, metacarpal fracture. Preoperatively we reviewed the risks, benefits, alternatives and potential complications involving both operative and nonoperative treatment. Pt understood and wished to pursue surgery. On 09/27/2022, the patient was clearly identified in the preoperative area marked accordingly on the right fifth digit by myself. Patient received 2 g of Ancef in the IV within 1 hour of incision or tourniquet. Then was taken the operative suite and placed in a supine position with an armboard on the right. Well-padded upper brachium tourniquet applied with stockinette and set at 250 mm murky but not yet inflated. All other bony landmarks were properly padded in standard fashion. Anesthesia assumed care of the head neck for the remainder the case. The right upper extremity was then sterilely prepped and draped in standard fashion. An appropriate timeout was conducted and all in the room were in agreement, signed consent form was on the chart, images were available for viewing and implants were in the room with representation. The right upper extremity was then exsanguinated with an Esmarch bandage and the tourniquet was applied to 250 mmHg. Longitudinal incision made directly over the fifth metacarpal just superficially through the skin with a 15 blade. Small skin bleeder was taken care of with bipolar electrocautery. There was a superficial sensory nerve that was readily identified and protected throughout the case. I came down directly on the fascia overlying the metacarpal off to the side of the extensor tendon and this was divided directly down to bone with a 15 blade. The fracture edges were all dissected out sharply with a 15 blade. This was fracture in 2 parts with a spiral component. I was first able to get a small bone reduction clamp and anatomically reduced the segments. Using the Acumed set, I placed a lag screw 2.4 mm across the fracture site effectively securing it in place. This showed on fluoroscopy imaging complete anatomic reduction of the fracture. At this time I selected a 2.0 locking plate in order to bridge the fracture segments. I was able to obtain 3 screws in the proximal portion and 3 screws in the distal portion bridging the fractures. The wound was copiously irrigated with normal saline. Final images showed appropriate positioning of the hardware along with reduced fracture. The tourniquet was then taken down and hemostasis was observed. The fascia was closed with a running locked, Monocryl suture. The skin edges were then closed with 3-0 nylon in a running, horizontal mattress fashion with escape loops. Xeroform gauze, sterile 4 x 4's, cotton padding and a well fashioned volar splint in the intrinsic safe position with the index finger free was applied with a light Rogelio wrap and Terra bandage. There are no complications during the procedure. Patient was safely awoken and transferred the postanesthetic care unit stable condition. PRE-OP/PRE-PROCEDURE DIAGNOSIS: Right, fifth metacarpal fracture, shaft, displaced, initial POST-OP/POST-PROCEDURE DIAGNOSIS: Same as Preop ESTIMATED BLOOD LOSS: 5 mls SPECIMENS: None IMPLANTABLE DEVICES: Acumed, 2.0 mm locking hand plate. 2.4 mm lag screw x1. DRAINS: None COMPLICATIONS: None PARTICIPATION IN SURGERY/PROCEDURE: I/primary surgeon/proceduralist performed the entire procedure. clinic assistant was necessary for safe patient positioning, sterile prepping and draping. arm assistance, positioning and protection, soft tissue retraction, protection of vital structures and suture management during the case. Final skin closure, splint and terra application and safe to the recovery room in stable condition. SIGNATURE: Osvaldo Davenport MD PATIENT NAME: Shanda Hammer DATE: September 30, 2022 TIME: 12:42 PM [facility] XR FLUOROSCOPYon 09-27-2022 XR FLUOROSCOPY * * *Final Report* * * DATE OF EXAM: Sep 27 2022 5:51PM MDR [id number] - XR FLUOROSCOPY / PROCEDURE REASON: ORIF METACARPAL-RIGHT * * * * Physician Interpretation * * * * PROCEDURE: XR FLUOROSCOPY HISTORY: ORIF METACARPAL-RIGHT. VIEWS: 3 right hand fluoroscopic spot image(s) stored in a permanent archive. IMPRESSION: Intraoperative fluoroscopy provided during surgical procedure. ORIF right fifth metacarpal diaphysis fracture. See operative report for further details. Fluoroscopic Radiation Summary: Plane A, Air Kerma: 16.2 mGy Dose Area Product (DAP): Fluoro time: 0:47 min:sec Heel Sprayer First: HILLARY Transcribe Date/Time: Sep 27 2022 5:53P Dictated by : Linda ZELAYA MD This examination was interpreted and the report reviewed and electronically signed by: Linda ZELAYA MD on Sep 27 2022 5:54PM EST [id number] [facility] HISTORY PHYSICALon 2 HISTORY PHYSICAL HNO ID: [id number] Author: Abe Beal APRN.DIRECTOR PUBLIC POLICY, DNP Service: ? Author Type: Nurse Practitioner Type: HANDP Filed: 09/24/2022 11:44 AM Note Text: PREANESTHESIA CONSULT CLINIC TELEHEALTH VISIT Patient has been identified by name and date of : Yes This is a virtual visit using [employer] video visit. It require patient-provider interaction for the medical decision making as documented below. Reason for contact: PACC visit Accompanied by: Self Scheduled Surgery: ORIF METACARPAL, right with Osvaldo Davenport MD on 09/27/2022 Subjective CHIEF COMPLAINT: Patient presents with: Anesthesia Consult: Preop evaluation HPI: This is a 41 year old female who is right-hand dominant. She presents with present history of closed displaced fracture of shaft of fifth metacarpal bone of right hand. The trauma occurred on September 19, 2022 at her home. She has current cast. Denies any numbness or tingling sensation in fingers of her right hand. Currently managing pain with naproxen and [place]. She is scheduled for the above-mentioned surgery for management. ACTIVE PROBLEM LIST Anemia Due to Acute Blood Loss Chronic Migraine Fracture of Neck of Metacarpal Bone Goiter Insomnia Pre-Op Evaluation Tobacco Use Disorder PAST MEDICAL HISTORY Diagnosis Date Anemia Resolved. Most recent lab per patient Enlarged thyroid Hand fracture, right Close displaced fracture of shaft of fifth metacarpal bone of right hand Migraines Tobacco use disorder Tobacco use disorder 09/24/2022 PAST SURGICAL HISTORY Procedure Laterality Date DANDC, DIAG AND/OR THERAPEUTIC VAGINAL HYSTERECTOMY April 2022 FAMILY HISTORY Problem Relation Age of Onset Diabetes Father Breast Cancer Mother Diabetes Other Diabetes Paternal Uncle Social History Tobacco Use Smoking status: Every Day Packs/day: 0.50 Types: Cigarettes Smokeless tobacco: Never Vaping Use Vaping Use: Never used Substance Use Topics Alcohol use: Not Currently Drug use: Not Currently ALLERGIES No Known Allergies MEDICATIONS: Current Outpatient Medications Medication Sig naproxen (NAPROSYN) 500 mg tablet Take 500 mg by mouth twice daily as needed. hydrOXYzine HCl (ATARAX) 25 mg tablet Take 1 tablet by mouth once daily. SUMAtriptan (IMITREX) 25 mg tablet Take at onset of migraine amitriptyline (ELAVIL) 50 mg tablet Take 1 tablet by mouth once daily as needed. HYDROcodone-acetaminophe n (NORCO) 5-325 mg per tablet Take 1 tablet by mouth every 6 hours as needed for up to 5 days. No current facility-administered medications for this visit. COVID VACCINATION STATUS: Not vaccinated, prior infection in 2020 REVIEW OF SYSTEMS: Pain Assessment: 010 General: No weight loss, malaise or fevers. Neuro: Postive for migraine on Imitrex, Naproxen and Atarax, +restless leg syndrome on rx Elavil , Negative for TIA's Seizures Stroke-residual deficit Stroke-No residual deficit Tumor involving HO[employer]SEMBLER Parkinson's Disease Multiple Sclerosis Delirium Dementia Impaired Sensorium Hemiplegia/Hemiparesis Paraplegia/Paraparesis Quadriplegia/Quadripares is Peripheral neuropathy Respiratory: Positive for Tobacco Use 0.5 pack/ day, Negative for Asthma, Bronchitis, COPD, Current cough, Daily bronchodilator use for previous 3 months, Dyspnea, Home O2, Orthopnea none, Pneumonia within 6 weeks (date), Recent hospitalizations for none, URI < 2 weeks, Wheezing Cardiovascular: No history of HTN requiring medication, no history of angina, CHF, [place], cardiac surgery or stents. Denies rest pain, gangrene or revascularization/amputa tion for PVD. No history of cardiovascular symptoms or problems. +one time H/O orthostatic hypotension. GI: No history of GI symptoms or problems. No history of esophageal varices, recent ascites, or ETOH greater than 2 drinks per day. 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 : No LMP recorded. Hysterectomy in April 2022. Endocrine: +enlarged thyroid. No rx Hematology: No history of bleeding or clotting disorder. Pt is not taking anti-coagulation or platelet medications. No history of hematological symptoms or problems. + History of anemia prior to hysterectomy with most recent HANDH from 08/03/2022 at 13.6 and 27.6% Oncology: No history of CA metastasis, chemo within 30 days, or radiotherapy within 90 days. Has not lost 10% of body wt in 6 months. No history of oncological symptoms or problems. Psych: No history of psychiatric symptoms or problems. Musculoskeletal: See HPI Skin: Negative for lesions, rash and itching. +H/O alopecia Objective PHYSICAL EXAM: Ht 5' 7 (1.70m) Wt 130 lb (59.0kg) BMI 20.36 kg/(m2). VIDEO EXAM: (if completed, performed via video enabled technology) GENERAL: alert and appropriate, in no distress, well-hydrated, well nourished, and happy, (more content not included)... Normal [facility] CNCOon 09-23-2022 CNCO Letter Text Normal [facility] CNOVon 09-23-2022 CNOV Office Visit (ORTHWS ) -------- SHANDA HAMMER ([id number]) 1980 F Date Time Provider Department 09/23/22 10:00 AM NATI ANN During your visit today, we recorded the following information about you: Enedina Blackwood Ma 09/23/2022 10:51 AM Signed AMB ROOMING INTAKE FLOWSHEET DATA Risk Screening Do you have concerns about personal safety or safety in the home?: No Pain Pain Level: 8 Pain Location: Hand-Right Description: Throbbing, Sharp Duration Amount of Time: 4 Duration Units: Days Frequency: Intermittent Intervention/Comfort measure: Splinting, Medication Patient here today for right hand fracture. Injury happened on 09/19/2022 when trying to dump trash can into dumpster. She is right hand dominant, does not work outside the home. Arrives with images from outside facility for review. Nati Ann PA-C 09/23/2022 10:51 AM Signed Nati Ann PA-C Department of Orthopaedics Orthopaedics [address] [facility] [address] Dept: [phone] Dept September 23, 2022 CHIEF COMPLAINT: New and Fracture of the Right Hand Ms. Shanda Hammer is a 41 year old female who presents with a right hand fracture. She was trying to empty a large trash can into a dumpster about 4 days ago. The trash can kicked back and hit her right hand. She was seen at the emergency room and placed in a splint. She is right-hand dominant. She denies any previous right hand injuries, she is currently not working outside of the home. ASSESSMENT: S62.326A Closed displaced fracture of shaft of fifth metacarpal bone of right hand, initial encounter (primary encounter diagnosis) PLAN: We discussed surgical intervention, the patients questions were addressed. The risks, benefits, alternatives and were discussed, patinet understands and wishes to pursue surgical intervention. Ms. Shanda Hammer was advised as to contrast therapies and/or to take analgesics/anti-inflamma tories as needed and all contraindications were reviewed. OBJECTIVE: Ms. Shanda Hammer is a pleasant 41 year old in no apparent distress. Gen:There were no vitals taken for this visit. nl development, non obese, no deformities ENT: Normocephalic, normal hearing, moist mucosa CV: Pulses:Radial= 2+ and symmetric, capillary refill < 2 secs, no peripheral edema/varicosities Skin: no rash, bruising or lesions. Good turgor. Psych: cooperative and appropriate, alert and oriented x 3, good mood and affect. Musculoskeletal: Right hand with tenderness palpation over the fifth metacarpal. Moderate edema of the palm extending into the third, fourth and fifth digits. Ecchymosis in the palm extending into the middle digit. Patient is able to form a loose composite fist with malrotation of the pinky digit. Sensation is intact to the hand. Imaging: X-rays September 19, 2022 right hand. Acute oblique fracture of the fifth metacarpal diaphysis, shortened and displaced. No other fractures are noted. No dislocations. Supporting Subjective Information Below: Past Surgical History: No past surgical history on file. Medications: Current Outpatient Medications Medication Sig naproxen (NAPROSYN) 500 mg tablet Take 500 mg by mouth twice daily as needed. hydrOXYzine HCl (ATARAX) 25 mg tablet Take 1 tablet by mouth once daily. SUMAtriptan (IMITREX) 25 mg tablet Take at onset of migraine amitriptyline (ELAVIL) 50 mg tablet Take 1 tablet by mouth once daily as needed. HYDROcodone-acetaminophe n (NORCO) 5-325 mg per tablet Take 1 tablet by mouth every 6 hours as needed for up to 5 days. No current facility-administered medications for this visit. Allergies: Patient has no known allergies. ROS: General (negative for fatigue, malaise, weight loss/gain) HEENT (negative for headache, earache, recent vision changes, sinus pain, sore throat) Respiratory (no recent shortness of breath, hemoptysis) CV (negative for chest tightness, palpitations) Musculoskeletal (see HPI) Psych (no depression, anxiety) This note was partially generated using [employer] voice recognition system, and there may be some incorrect words, spellings, and punctuation that were not noted in checking the note before saving. Nati Ann PA-C Allergies As of Date: 09/23/2022 (No Known Allergies) Date Reviewed: Never Reviewed Reason for Visit: New [209154] Fracture [4131] Primary Visit Diagnosis:Closed displaced fracture of shaft of fifth metacarpal bone of right hand, initial encounter [S62.326A] Other Visit Diagnosis:Pain of right hand [M79.641] Order(s):HYDROcodone-terra taminophen (NORCO) 5-325 mg per tabletTake 1 tablet by mouth every 6 hours as needed for up to 5 days.Disp: 20 tabletRfl: 0 Prescriptions as of 09/23/2022 - naproxen (NAPROSYN) 500 mg tablet Take 500 mg by mouth twice daily as needed. - hydrOXYzi (more content not included)... Normal [facility] Jannette 09-23-2022 CNPN Telephone (YUE) -------- SHANDA HAMMER ([id number]) 1980 F Date Time Provider Department 09/23/22 OSVALDO DAVENPORT During your visit today, we recorded the following information about you: Enedina Blackwood Ma 09/23/2022 11:08 AM Signed Surgical request completed for ORIF right 5th MC with Acumed IM nail at [facility] on 09/27/2022. Post op appointments have been scheduled and mailed to patient. Enedina Blackwood Ma 09/23/2022 1:05 PM Signed Surgery has been scheduled as requested. Allergies As of Date: 09/23/2022 (No Known Allergies) Date Reviewed: Never Reviewed Reason for Visit: Schedule Surgery [1330] Primary Visit Diagnosis:Closed displaced fracture of shaft of fifth metacarpal bone of right hand, initial encounter [S31.367A] Order(s):SURGICAL REQUEST - ELECTIVE (06/2020) [[id number]] Order #: [id number]: 1 Prescriptions as of 09/23/2022 - naproxen (NAPROSYN) 500 mg tablet Take 500 mg by mouth twice daily as needed. - hydrOXYzine HCl (ATARAX) 25 mg tablet Take 1 tablet by mouth once daily. - SUMAtriptan (IMITREX) 25 mg tablet Take at onset of migraine - amitriptyline (ELAVIL) 50 mg tablet Take 1 tablet by mouth once daily as needed. - HYDROcodone-acetaminophe n (NORCO) 5-325 mg per tablet Take 1 tablet by mouth every 6 hours as needed for up to 5 days. Problem List As Of Date: 09/23/2022 (None) Encounter Status:Closed by ENEDINA BLACKWOOD MA on 09/23/22 [facility] HAND MIN 3 VIEWSon 2 HAND MIN 3 VIEWS STUDY: Hand Radiographs; 09/19/22 at 3:56 PM. INDICATION: Right 5th finger pain post injury. COMPARISON: None available. ACCESSION NUMBER(S): [id number] ORDERING CLINICIAN: AMANDA HARRINGTON CNP TECHNIQUE: Three view(s) of the right hand. FINDINGS/ IMPRESSION: Acute oblique/spiral fracture of the fifth metacarpal diaphysis, displaced by approximately 0.6 cm. Signed by La Worrell MD Electronically signed by: LA WORRELL MD [facility] Provider Note - ED v3on 09-10 Provider Note - ED v3 Provider Note: Chart Review: HISTORY OF PRESENTING ILLNESS SHANDA is a 41 year old Female and was seen by me at 19-Sep-2022 15:18 for a chief complaint of hand injury (Patient to ED reference right hand/wrist and fingers injury. Patient lifting trash can and slipped and it landed on her hand/wrist. She is having pain in fingers, hand, wrist and radiating up her arm. Patient states she cant move her 3 outside fingers.) . Triage Information: Most recent Vital Sign Value Date Temp (F): 98.1 09-19-2022 15:13 Temp (C): 36.7 09-19-2022 15:13 Heart Rate (beats/min): 59 09-19-2022 15:13 Respirations (breaths/min): 16 09-19-2022 15:13 SpO2 (%): 100 09-19-2022 15:13 BP Systolic (mm Hg): 119 09-19-2022 15:13 BP Diastolic (mm Hg): 92 09-19-2022 15:13 PAST MEDICAL HISTORY ALLERGIES/INTOLERANCES: No Known Allergies HEALTH HISTORY: No documented data. OUTPATIENT MEDICATIONS: Home Medications Review Status for Reconciliation: Complete Med Status: Patient Currently Takes Medications Drug Name: SUMATRIPTAN SUCCINATE 25 MG TABLET Instructions: 1 tab(s) orally once a day, As Needed for migraine headaches Drug Name: HYDROXYZINE HCL 25 MG TABLET Instructions: tab(s) orally , As Needed Drug Name: AMITRIPTYLINE HCL 50 MG TABLET Instructions: 1 tab(s) orally once a day (at bedtime) Drug Name: NAPROXEN 500 MG TABLET Instructions: 1 tab(s) orally 2 times a day, As Needed Drug Name: hydrocodone-acetaminophe n 5 mg-325 mg oral tablet Instructions: 1 tab(s) orally every 6 hours, As Needed -for severe pain Drug Name: naproxen 500 mg oral tablet Instructions: 1 tab(s) orally 2 times a day SIGNIFICANT EVENTS: No documented data. CRITICAL CARE RESULTS: Radiology Results: Impression: Acute oblique/spiral fracture of the fifth metacarpal diaphysis, displaced by approximately 0.6 cm. Signed by La Worrell MD Xray Hand Min 3 View [Sep 19 2022 4:15PM] VITAL SIGNS: T PRBP SpO2O2(LPM) %FiO2 Method 19-Sep-2022 15:13:[id number] 100 room air, no respiratory support MDM MDM/ED COURSE: PMH: Reviewed PSH: Reviewed Social History: Reviewed. Allergies reviewed. HPI: This is a 41 year old female who presents to the ED today with complaints of right hand pain. States she was carrying a trash can out to her dumpster and it slipped when she was lifting it up. It came down and hyperextended her fingers. She is now having pain in fingers that radiates all the way up her arm. 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 PHYSICAL EXAM: GENERAL: Vitals noted, no distress. Alert and oriented x 3. Non-toxic. CARDIAC: Regular rate, rhythm. RESPIRATORY: No respiratory distress. MUSCULOSKELETAL & SKIN: Warm, dry, and intact. No rash/lesions. No peripheral edema. TTP of the 2nd - 5th fingers. Distal cap refill WNL. Radial pulse 2+. NEURO: No focal neurologic deficits, acting appropriately. ED COURSE: This patient was seen and examined by myself independently. Given Naprosyn and norco for pain. Xray of the right hand shows acute oblique/spiral fracture of the fifth metacarpal diaphysis, displaced by approx 0.6cm. A well-padded, custom made ulnar gutter splint is applied. Post application of the splint she remains neurovascularly intact. Referred to ortho/hand for followup care. E-rx for naprosyn and norco for home. She is discharged home in a stable condition with computer instructions given and is encouraged to return to the ER for any new or worsening symptoms. DIAGNOSTIC IMPRESSION: #1 right christy' fracture DISPOSITION Diagnosis/Annotation: ED Dx Name:Christy fracture Code:S62.339A Disposition: discharged Type: home CONSULT CRITICAL CARE TIME Is this a critically ill patient: no Electronic Signatures: Amanda Harrington (PRINCIPAL TECHNOLOGIST-[facility]) (Signed 19-Sep-2022 18:38) Authored: HPI, PMH, Results/Vital Signs, MDM/ED Course, Clinical Impression, Attestation, Chart Review, Scores Last Updated: 19-Sep-2022 18:38 by Amanda Harrington (PRINCIPAL TECHNOLOGIST-[facility]) References: 1. Data Referenced From Triage - ED 19-Sep-2022 15:13 Normal [facility] Risk Screen - Adult Emergenc n 09-19-2022 Risk Screen - Adult Emergency Preferred Language: Preferred Language: Preferred Language for Discussing Health Care (patient/designee)Love carias Patient Preferred Pharmacy: Patient Preferred Pharmacy Statement: I have reviewed and updated the patient's preferred pharmacy selection for today's visit. Advanced Directives: Advance Directive/DNRno Family Violence Adult: Abuse Screen: Are you or have you been threatened or abused physically, emotionally, or sexually by anyoneno Learning Assessment (Patient): Learning Assessment (Patient): Patient is Able to be Assessed for Learningyes Factors Influencing Readiness to Learnpain Factors that Impact Ability to Learnnone Devices/Methods Used to Communicatenone Learning Preferenceswritten material; verbal instruction Cultural Considerationsnone Developmental Considerationsnone Pentecostalism Considerationsnone Other Learnerssignificant other Learning Assessment (Other Learner): Learning Assessment (Other Learner): Other learner availableyes... Learnersignificant other Factors Influencing Readiness to Learnna Factors that Impact Ability to Learnnone Devices/Methods Used to Communicatenone Learning Preferencesverbal instruction, written material Cultural Considerationsnone Developmental Considerationsnone Pentecostalism Considerationsnone Pressure Injury/TB/Substance: Pressure Injury: Pressure Injury Present on Admissionno Do you have a coughno Smoking Statusmoderate user (uses 11-30 cig/day, OR 0.5-1.5 ppd, OR 2-3 cans/pouches loose leaf tobacco per week, OR 0.5-1.5 vape pods per day) Tobacco Cessation Education (provide if tobacco use within the last 12 mos) patient declined Alcohol Usedenies Admission Risk Screen: Significant IndicatorsComplete CAGE: CAGE: Is this an injured patient at a Trauma Center ([facility]/[place] /[place]): no Electronic Signatures: Sobeida Fernandez (RN PRN) (Signed 19-Sep-2022 15:32) Authored: Preferred Language, Patient Preferred Pharmacy, Advanced Directives, Family Violence Adult, Learning Assessment (Patient), Learning Assessment (Other Learner), Pressure Injury/TB/Substance, Pressure Injury, CAGE Last Updated: 19-Sep-2022 15:32 by Sobeida Fernandez (RN PRN) Normal [facility] POCT INFLUENZA, A Bon 2019 FLUAV Ag IA Ql (Nph) Negative [facility] FLUBV Ag IA Ql (Nph) Negative [facility] qc done [facility] POCT RAPID STREP Aon 020 S. pyogenes Ag Ql (Throat) Negative (+/-) [facility] qc done [facility] C Bloodon 02-07-2019 C Blood Final Report: No aarti wth at 5 Days [facility] Comment on above: Performed By: #### 2 [id number] #### OSVALDO RemChem [facility] [place] [address] .Manual Abson 02-02-2019 Basophil Abs Man 0.0 10x3/ Normal 0.0-0.2 [facility] Comment on above: Order Comment: Order Added by Discern Expert. Performed By: #### 3 [id number] #### OSVALDO AraizaHemo [address] [place] [address] Eos Abs Man 0.0 10x3/ Normal 0.0-0.5 [facility] Comment on above: Order Comment: Order Added by Discern Expert. Performed By: #### 3 [id number] #### OSVALDO Carvalhoo [address] [place] [address] Lymphocytes #/vol (Bld) 2.2 10x3/ Normal 1.2-3.4 [facility] Comment on above: Order Comment: Order Added by Discern Expert. Performed By: #### 3 [id number] #### OSVALDO AraizaHemo [address] [place] [address] Queens Abs Man 0.6 10x3/ Normal 0.0-0.7 [facility] Comment on above: Order Comment: Order Added by Discern Expert. Performed By: #### 3 [id number] #### OSVALDO AraizaHemo [facility] [place] [address] Segs Abs Man 17.3 10x3/ High 1.4-6.5 [facility] Comment on above: Order Comment: Order Added by Discern Expert. Performed By: #### 3 [id number] #### OSVALDO AraizaHemo [address] [place] [address] BMPon 02-02-2019 Anion gap molar conc 11 mmol/L Normal 10-20 [facility] Comment on above: Performed By: #### 2 [id number] #### OSVALDOMervin AraizaChem [address] [place] [address] Calcium mass conc 9.1 mg/dL Normal 8.6-10.3 [facility] Comment on above: Performed By: #### 2 [id number] #### OSVALDO TeodoraChem [address] [place] [address] Chloride molar conc 107 mmol/L Normal 98-107 [facility] Comment on above: Performed By: #### 2 [id number] #### OSVALDO TeodoraChem [address] [place] [address] CO2 molar conc 24.0 mmol/L Normal 21.0-32.0 [facility] Comment on above: Performed By: #### 2 [id number] #### OSVALDO RemChem [address] [place] [address] Creatinine mass conc 0.9 mg/dL Normal 0.5-1.1 [facility] Comment on above: Performed By: #### 2 [id number] #### OSVALDO [employer] [address] [place] [address] Glucose mass conc 147 mg/dL High 70-99 [facility] Comment on above: Performed By: #### 2 [id number] #### OSVALDO [employer] [address] [place] [address] Potassium molar conc 3.7 mmol/L Normal 3.5-5.3 [facility] Comment on above: Performed By: #### 2 [id number] #### OSVALDO [employer] [address] [place] [address] Sodium molar conc 138 mmol/L Normal 136-145 [facility] Comment on above: Performed By: #### 2 [id number] #### OSVALDO [employer] [address] [place] [address] Urea nitrogen mass conc 13 mg/dL Normal 6-23 [facility] Comment on above: Performed By: #### 2 [id number] #### OSVALDO [employer] [address] [place] [address] Urea nitrogen/Creatinine mass ratio 14.4 ratio Normal 5.4-30.0 [facility] Comment on above: Performed By: #### 2 [id number] #### OSVALDO [employer] [address] [place] [address] CBC w/ Auto Diffon Erythrocyte distribution width Ratio (RBC) 13.3 % Normal 11.5-14.5 [facility] Comment on above: Performed By: #### 2 [id number] #### OSVALDO RemHemo [address] [place] [address] Hematocrit Volume Fraction (Bld) 39.8 % Normal 36.0-48.0 [facility] Comment on above: Performed By: #### 2 [id number] #### OSVALDO RemHemo [address] [place] [address] Hemoglobin mass conc (Bld) 13.4 g/dL Normal 12.0-16.0 [facility] Comment on above: Performed By: #### 2 [id number] #### OSVALDO RemHemo [address] [place] [id number] MCH Entitic mass (RBC) 31.4 pg High 27.0-31.0 [facility] Comment on above: Performed By: #### 2 [id number] #### OSVALDO RemHemo [address] [place] [id number] MCHC mass conc (RBC) 33.8 g/dL Normal 33.0-37.0 [facility] Comment on above: Performed By: #### 2 [id number] #### OSVALDO AraizaHemo [address] [place] [address] MCV Entitic volume (RBC) 92.9 fL Normal 78.0-100.0 [facility] Comment on above: Performed By: #### 2 [id number] #### OSVALDO RemHemo [facility] [place] [address] Platelet mean volume Entitic volume (Bld) 9.4 fL Normal 7.4-11.0 [facility] Comment on above: Performed By: #### 2 [id number] #### OSVALDO RemHemo [address] [place] [address] Platelets #/vol (Bld) 312 E3/mcL Normal 130-400 [facility] Comment on above: Performed By: #### 2 [id number] #### OSVALDO RemHemo [address] [place] [id number] RBC #/vol (Bld) 4.28 E6/mcL Normal 3.90-5.40 [facility] Comment on above: Performed By: #### 2 [id number] #### OSVALDO RemHemo [address] [place] [address] WBC #/vol (Bld) 20.1 E3/mcL High 3.6-11.0 [facility] Comment on above: Performed By: #### 2 [id number] #### OSVALDO RemHemo [address] [place] [id number] CT Abdomen/Pelvis w/o Contra ston 02-02-2019 CT Abdomen/Pelvis w/o Contrast Exam Date/Time: 02/02/2019 00:08 EDT Reason for Exam: Abdominal Pain;Other (please specify) Report STUDY: CT Abdomen/Pelvis w/o Contrast; 02/02/2019 12:08 am INDICATION: Abdominal cramping, vaginal bleeding, back pain COMPARISON: None. ACCESSION NUMBER(S): [id number] ORDERING CLINICIAN: Nima Rodrigues TECHNIQUE: Contiguous axial images of the abdomen and pelvis were obtained without intravenous contrast. Coronal and sagittal reformatted images were obtained from the axial images. FINDINGS: Mild basilar subsegmental atelectasis. No pleural effusion. Evaluation of the abdominal viscera is limited secondary to the lack of intravenous contrast. Limited evaluation for liver mass on noncontrast examination. The gallbladder is present. No evidence of calcified gallstones. No dilatation of the common bile duct. The pancreas, spleen, and adrenal glands appear unremarkable. No evidence of renal calculus or hydronephrosis. Evaluation of the kidneys is otherwise limited secondary to lack of intravenous contrast. No evidence of bowel obstruction or acute appendicitis. Urinary bladder is underdistended and not well evaluated. Limited evaluation of the uterus and adnexa. 4.2 cm x 3 cm cystic lesion in the left adnexa compatible with an ovarian cyst. Hyperdensity in the lower uterine segment and endocervical canal which measures 2.4 cm in thickness may correspond to hemorrhage. 1.7 cm cystic lesion near the right aspect of the vagina on axial image 139 of 150 may correspond to a Bartholin gland cyst. No evidence of acute fracture of the lumbar spine. IMPRESSION: No evidence of bowel obstruction or acute appendicitis. Exam Date/Time: 02/02/2019 00:08 EDT Report Limited evaluation of the uterus and adnexa. 4.2 cm x 3 cm cystic lesion in the left adnexa compatible with an ovarian cyst. Hyperdensity in the lower uterine segment and endocervical canal which measures 2.4 cm in thickness may correspond to hemorrhage. Evaluation is however limited on the CT examination, and pelvic ultrasound is recommended for further evaluation to exclude other underlying pathology including mass. 1.7 cm cystic lesion near the right aspect of the proximal vagina on axial image 139 of 150 may correspond to a Bartholin gland cyst. FINAL REPORT Dictated: 02/02/2019 0:29 am Caesar Monique MD Signed (Electronic Signature): 02/02/2019 0:29 am Signed by: Caesar Monique MD Technologist: MEM Normal [facility] Manual Diffon 02-02-2019 Basophils/100 WBC (Bld) 0 % Normal 0-1 [facility] Comment on above: Order Comment: Order Added by Discern Expert. Performed By: #### 2 [id number] #### OSVALDO RemHemo [address] [place] [address] Eosinophils/100 WBC (Bld) 0 % Normal 0-5 [facility] Comment on above: Order Comment: Order Added by Discern Expert. Performed By: #### 2 [id number] #### OSVALDO RemHemo [address] [place] [address] Lymphocytes/100 WBC (Bld) 11 % Low 14-48 [facility] Comment on above: Order Comment: Order Added by Discern Expert. Performed By: #### 2 [id number] #### OSVALDO RemHemo [address] [place] [address] Monocytes/100 WBC (Bld) 3 % Normal 1-11 [facility] Comment on above: Order Comment: Order Added by Discern Expert. Performed By: #### 2 [id number] #### OSVALDO RemHemo [address] [place] [address] RBC morphology finding Nom (Bld) NORMAL Normal [facility] Comment on above: Order Comment: Order Added by Discern Expert. Performed By: #### 2 [id number] #### OSVALDO RemHemo [address] [place] [address] Segs Man 86 % High 37-75 [facility] Comment on above: Order Comment: Order Added by Discern Expert. Performed By: #### 2 [id number] #### OSVALDO RemHemo [address] [place] [address] U BhCG Qlton 02-02-2019 HCG.beta subunit Qn Negative Normal Neg [facility] Comment on above: Performed By: #### 2 [id number] #### OSVALDO Urinalysis Manual Subsection [address] [place] [address] UA Completeon 02-02-2019 Color Nom (U) Yellow Normal Yellow [facility] Comment on above: Performed By: #### 8 [id number] #### OSVALDO Urinalysis Automated Subsection [facility] [place] [address] Glucose mass conc (U) Negative Normal Negative [facility] Comment on above: Performed By: #### 8 [id number] #### OSVALDO Urinalysis Automated Subsection [facility] [place] [address] Ketones Ql (U) Trace Normal [facility] Comment on above: Performed By: #### 8 [id number] #### OSVALDO Urinalysis Automated Subsection [facility] [place] [address] RBC #/vol (U) 0-3 Normal 0-3 [facility] Comment on above: Performed By: #### 8 [id number] #### OSVALDO Urinalysis Automated Subsection [facility] [place] [address] UA Blood 1+ Abnormal Negative [facility] Comment on above: Result Comment: High concentration of Ascorbic Acid present in urine. This may cause False Negative Occ Blood. Review microscopic results and patient's clinical symptoms. Performed By: #### 8 [id number] #### OSVALDO Urinalysis Automated Subsection [facility] [place] [address] UA Ascorbic Acid 40 mg/dL High <=19 [facility] Comment on above: Performed By: #### 8 [id number] #### OSVALDO Urinalysis Automated Subsection [facility] [place] [address] UA Clarity Clear Normal Clear [facility] Comment on above: Performed By: #### 8 [id number] #### OSVALDO Urinalysis Automated Subsection [facility] [place] [address] UA Leuk Est Trace Normal Negative [facility] Comment on above: Performed By: #### 8 [id number] #### OSVALDO Urinalysis Automated Subsection [facility] [place] [address] UA Mucous Few Abnormal Trace [facility] Comment on above: Performed By: #### 8 [id number] #### OSVALDO Urinalysis Automated Subsection [facility] [place] [address] UA Nitrite Negative Normal Negative [facility] Comment on above: Performed By: #### 8 [id number] #### OSVALDO Urinalysis Automated Subsection [address] [place] [address] UA pH 7.0 Normal 4.6-8.0 [facility] Comment on above: Performed By: #### 8 [id number] #### OSVALDO Urinalysis Automated Subsection [address] [place] [address] UA Protein 2+ Abnormal Negative [facility] Comment on above: Performed By: #### 8 [id number] #### OSVALDO Urinalysis Automated Subsection [address] [place] [address] UA Spec Grav 1.031 High 1.003-1.030 [facility] Comment on above: Performed By: #### 8 [id number] #### OSVALDO Urinalysis Automated Subsection [address] [place] [address] UA Squam Epithelial 0-5 Normal 0-5 [facility] Comment on above: Performed By: #### 8 [id number] #### OSVALDO Urinalysis Automated Subsection [address] [place] [address] UA Urobilinogen 2.0 mg/dL Abnormal [facility] Comment on above: Result Comment: Due to a manufacturing issue, low positive urobilinogen results may be fasely positive. Correlate with urine bilirubin and additional clinical/laboratory findings to assess the risk of hemolytic anemia or liver disease. If clinically indicated, repeat testing with an alternate method is available by contacting the laboratory within 24 hours. Performed By: #### 8 [id number] #### OSVALDO Urinalysis Automated Subsection [address] [place] [address] UA WBC 0-5 Normal 0-5 [facility] Comment on above: Performed By: #### 8 [id number] #### OSVALDO Urinalysis Automated Subsection [address] [place] [address] Urobilinogen Qn (U) Negative Normal Negative [facility] Comment on above: Performed By: #### 8 [id number] #### OSVALDO Urinalysis Automated Subsection [address] [place] [address] XR Chest AP Portableon 02-02 XR Chest AP Portable Exam Date/Time: 02/02/2019 01:19 EDT Reason for Exam: Cough Report STUDY: XR Chest AP Portable; 02/02/2019 1:19 am INDICATION: Cough. COMPARISON: None. ACCESSION NUMBER(S): [id number] ORDERING CLINICIAN: Nima Rodrigues FINDINGS: CARDIOMEDIASTINAL SILHOUETTE: Cardiomediastinal silhouette is normal in size and configuration. LUNGS: No pulmonary consolidation, pleural effusion or pneumothorax. ABDOMEN: No remarkable upper abdominal findings. BONES: No acute osseous abnormality. IMPRESSION: No acute cardiopulmonary process. FINAL REPORT Dictated: 02/02/2019 4:00 am Reny Gaitan MD Signed (Electronic Signature): 02/02/2019 4:00 am Signed by: Reny Gaitan MD Technologist: VENU [facility] eGFRon 02-02-2019 GFR/1.73 sq M predicted among non-blacks MDRD vol rate/area (S/P/Bld) mL/min/{1.73_m2} Normal [facility] Comment on above: Order Comment: Order added by Discern Expert. Performed By: #### 1 [id number] #### OSVALDO [employer] [facility] [place] [address] zzplt morphon 02-02-2019 Platelet morphology finding Nom (Bld) NORMAL [facility] Comment on above: Performed By: #### 9 [id number] #### OSVALDO RemHemo [facility] [place] [address] Platelets #/vol (Bld) NORMAL [facility] Comment on above: Performed By: #### 9 [id number] #### OSVALDO RemHemo [facility] [place] [address] IGP W/hpv Rfx [id number] 01-08 Diagnosis: See Ref Lab Report [facility] Comment on above: Order Comment: LMP: 11/16/18 Performed By: #### 1 [id number] #### OSVALDO Send Outs Subsection [address] [place] [address] Pathology (EM)on 01-04-2019 Pathology ([facility]) FINAL GYNECOLOGIC CYTOLOGY REPORT [id number] SPECIMEN ADEQUACY Satisfactory for Evaluation. Endocervical cells/transformation zone component present. GENERAL CATEGORIZATION Negative for Intraepithelial Lesion or Malignancy CLINICAL HISTORY LMP: 11/16/2018 SPECIMEN (A) SCREENING CERVICAL/ENDOCERVICAL THIN PREP VIAL Performed at [facility], [address], [place] [address] Screened by: Signed Out by: ADINA GAMBOA Payroll Director Reported: 01/07/2019 Normal [facility] Comment on above: Performed By: #### G YN #### [facility] [address] [place] [id number] Vital Signs Date Time Vital Sign Value Performing Clinician Facility 09-19-2022 17:13-0500 Body height 170.1 cm Text Entry Free [facility] 09-19-2022 17:13-0500 Body temperature 98.06 [degF] Text Entry Free [facility] 09-19-2022 17:13-0500 Body weight 59.1 kg Text Entry Free [facility] 09-19-2022 17:13-0500 Diastolic blood pressure 92 mm[Hg] Text Entry Free [facility] 09-19-2022 17:13-0500 Heart rate 59 /min Text Entry Free [facility] 09-19-2022 17:13-0500 Respiratory rate 16 /min Text Entry Free [facility] 09-19-2022 17:13-0500 SaO2% (BldA) [Mass fraction] 100 % Text Entry Free [facility] 09-19-2022 17:13-0500 Systolic blood pressure 119 mm[Hg] Text Entry Free [facility] 12-28-2019 13:58-0500 BMI (Body Mass Index) 21.4 kg/m2 [facility] 12-28-2019 13:58-0500 Body Temperature 98.29 [degF] [facility] 12-28-2019 13:58-0500 Body weight 60.15 kg [facility] 12-28-2019 13:58-0500 BP Diastolic 73 mm[Hg] [facility] 12-28-2019 13:58-0500 BP Systolic 113 mm[Hg] [facility] 12-28-2019 13:58-0500 Height 167.6 cm [facility] 12-28-2019 13:58-0500 Pulse (Heart Rate) 72 /min [facility] [employer] 12-28-2019 13:58-0500 Pulse Oximetry 98 % [facility] [employer] [facility] 12-28-2019 13:58-0500 Respiratory Rate 16 /min [facility] [employer] Encounters Encounter Date Encounter Type Care Provider Facility Start: 11-14-2022 End: 11-14-2022 ambulatory OSVALDO DAVENPORT Facility:[facility] Start: 11-14-2022 End: 11-14-2022 Subsequent hospital visit by physician Ryan [facility] [place] Work Phone: Radiology Comment on above: Closed displaced fra cture of shaft of fifth metacarpal bone of right hand with routine healing, subsequent encounter [S62.326D] Start: 11-14-2022 End: 11-14-2022 Patient encounter procedure Osvaldo Davenport MD Work Phone: Orthopaedics Comment on above: Closed displaced fra cture of shaft of fifth metacarpal bone of right hand with routine healing, subsequent encounter (Primary Dx) Start: 11-13-2022 Orders Only Osvaldo Davenport MD Work Phone: Orthopaedics Comment on above: Closed displaced fra cture of shaft of fifth metacarpal bone of right hand with routine healing, subsequent encounter (Primary Dx) Start: 10-07-2022 End: 10-07-2022 [facility] OSVALDO DAVENPORT Facility:[facility] Start: 10-07-2022 End: 10-07-2022 Patient encounter procedure Nati Ann PA-C Work Phone: Orthopaedics Comment on above: Closed displaced fra cture of shaft of fifth metacarpal bone of right hand with routine healing, subsequent encounter (Primary Dx) Start: 10-02-2022 End: 10-02-2022 ambulatory CAROLINA GARG Facility:[facility] Start: 10-02-2022 End: 10-02-2022 Subsequent hospital visit by physician Ryan [facility] Work Phone: Radiology Comment on above: Closed displaced fra cture of shaft of fifth metacarpal bone of right hand, initial encounter [S62.326A] Start: 09-30-2022 Orders Only Osvaldo Davenport MD Work Phone: Orthopaedics Comment on above: Closed displaced fra cture of shaft of fifth metacarpal bone of right hand, initial encounter (Primary Dx) Start: 09-27-2022 End: 09-27-2022 ambulatory OSVALDO DAVENPORT Facility:[facility] Start: 09-24-2022 End: 09-24-2022 ambulatory Abe Beal YONY.MOOK, DONTE Work Phone: Pre Anesthesia Comment on above: PRE-OP INSTRUCTION Start: 09-24-2022 E-mail encounter fro m caregiver Abe Beal YONY.MOOK, DONTE Work Phone: [facility] Start: 09-24-2022 Preprocedural examination done Abebarbra Beal DONTE BOYD Work Phone: [facility] Work Phone: Start: 09-23-2022 Telephone encounter Osvaldo alejo MD Work Phone: Orthopaedics Comment on above: Schedule Surgery Start: 09-23-2022 End: 09-23-2022 ambulatory NATI ANN Facility:[facility] Start: 09-23-2022 End: 09-23-2022 Patient encounter procedure Nati Ann PA-C Work Phone: Orthopaedics Comment on above: Closed displaced fra cture of shaft of fifth metacarpal bone of right hand, initial encounter (Primary Dx); Pain of right hand Start: 09-19-2022 End: 09-19-2022 Emergency department patient visit Amanda Harrington [facility] Emergency 04 Start: 12-28-2019 End: 12-28-2019 Office outpatient new 30 minutes Cherry Regan Work Phone: [facility] Comment on above: Sore throat (Primary Dx); Viral syndrome Start: 02-05-2019 End: 02-06-2019 Patient encounter procedure Elaina Andrea Facility:[facility] Start: 02-02-2019 Patient encounter procedure Facility:[id number] Start: 02-01-2019 Patient encounter procedure Facility:[id number] Start: 01-04-2019 End: 01-05-2019 Patient encounter procedure Elaina Andrea Facility:[facility] Start: 01-04-2019 End: 01-05-2019 Patient encounter procedure Elaina Andrea Facility:[facility] Start: 01-04-2019 Patient encounter procedure Facility:[id number] Start: 02-12-2018 End: 02-12-2018 Patient encounter procedure Manolo Evans Facility:[facility] Procedures Date Procedure Procedure Detail Performing Clinician Start: 11-14-2022 Radex hand minimum 3 views Osvaldo Davenport MD Work Phone: Start: 10-02-2022 Radex hand minimum 3 views Osvaldo Davenport MD Work Phone: Start: 12-28-2019 Iaadiadoo streptococ cus group a Cherry Regan Work Phone: Start: 12-28-2019 Iaadiadoo influenza Bety Regan Work Phone: Plan of Treatment Date Care Activity Detail Author Start: 07-11-2024 Covid-19 Vaccine ( season) Covid-19 Vaccine ( season) [facility] Start: 07-11-2024 Influenza vaccination Influenza Vacc ine (#1) [facility] Start: 07-11-2023 Influenza vaccination Influenza Vacc ine (#1) [facility] Start: 11-10-2022 [facility]PRESS[facility]MENT [facility] Start: 07-11-2022 Influenza vaccination INFLUENZA (#1) [facility] Start: 11-10-2021 DEPRESSION ASSESSMENT DEPRESSION ASS ESSMENT [facility] Start: 2021 Mammography [facility] Start: 2021 Screening for malign ant neoplasm of breast Mammogram Screening [facility] Start: 07-11-2019 Influenza vaccination INFLUENZA VACC INE (#1) [facility] Start: 2011 HPV TESTING HPV TESTING [facility] Start: 2002 PAP TESTING PAP TESTING [facility] Start: 2002 Screening for malign ant neoplasm of cervix [facility] Start: 2000 Hepatitis B Vaccine (1 of 3 - 19+ 3-dose series) Hepatitis B Vaccine (1 of 3 - 19+ 3-dose series) [facility] Start: 2000 Third diphtheria, tetanus and acellular pertussis (DTaP) vaccination TDAP (ADULT) [facility] Start: 2000 Urine microalbumin profile [facility] Start: 1999 Anxiety Screening Anxiety Screening [facility] Start: 1999 Depression Screening Depression Scre jose [facility] Start: 1999 HEPATITIS C SCREENING HEPATITIS C [facility] Start: 1999 Hepatitis C screening Hepatitis C [facility] Start: 1999 HIV SCREENING HIV SCREENING [facility] Start: 1999 HIV screening HIV Screening [facility] Start: 1999 Tetanus vaccination [facility] Start: 1994 HIV screening HIV SCREENING DISCUSSION [facility] Start: 1987 PNEUMOCOCCAL (1 - PCV) PNEUMOCOCCAL (1 - PCV) [facility] Start: 1987 Pneumococcal vaccination [facility] Start: 04-30-1982 COVID-19 VACCINE (#1) COVID-19 VACCI NE (#1) [facility] Start: 1981 HEPATITIS B (1 of 3 - 3-dose series) HEPATITIS B (1 of 3 - 3-dose series) [facility] Start: 1981 Hepatitis B Vaccine (1 of 3 - 3-dose series) Hepatitis B Vaccine (1 of 3 - 3-dose series) [facility] End: 2023 XR HAND GENERAL 3V PA/LAT/OBL RIGHT XR HAND GENERAL 3V PA/LAT/OBL RIGHT Radiology Routine Closed displaced fracture of shaft of fifth metacarpal bone of right hand, initial encounter 1 Occurrences starting 09/30/2022 until 2023 [facility] Work Phone: Comment on above: 1 Occurrences starti ng 09/30/2022 until 2023 End: 12-13-2023 XR HAND GENERAL 3V PA/LAT/OBL RIGHT XR HAND GENERAL 3V PA/LAT/OBL RIGHT Radiology Routine Closed displaced fracture of shaft of fifth metacarpal bone of right hand with routine healing, subsequent encounter 1 Occurrences starting 11/13/2022 until 12/13/2023 [facility] Work Phone: Comment on above: 1 Occurrences starti ng 11/13/2022 until 12/13/2023 XR HAND GENERAL 3V PA/LAT/OBL RIGHT XR HAND GENERAL 3V PA/LAT/OBL RIGHT Radiology Routine Closed displaced fracture of shaft of fifth metacarpal bone of right hand with routine healing, subsequent encounter 11/14/2022 10:39 AM EST [facility] Work Phone: [facility] Payers Date Payer Category Payer Medicaid [id number] 2022 Unknown [id number] 2019 Unknown [employer] xxxxxxxxxxx 2019-Present [phone] xxxxxxxxxxx [id number] 2018 Unknown 1981 Unknown [id number] 1981 Unknown [id number] 1981 Unknown [id number] 1981 Unknown [id number] 1981 Unknown [id number] Medicaid [id number] Social History Date Type Detail Facility Start: 12-28-2019 End: 09-23-2022 Tobacco smoking status NHIS Current every day smoker [facility] Start: 12-28-2019 End: 09-30-2022 Cigarettes smoked current (pack per day) - Reported [facility] Start: 12-28-2019 End: 09-30-2022 Alcohol intake Ex-drinker (finding) [facility] Start: 1981 Sex Assigned At Not on file A [facility] Tobacco smoking consumption unknown [facility] History of tobacco use Cigarette Smoker C [facility] Start: 09-23-2022 Tobacco use and exposure Smokeless tobacco non-user [facility] Start: 09-13-2022 End: 10-07-2022 Exposure to SARS-CoV-2 (event) Not sure [facility] Start: 09-30-2022 End: 11-14-2022 Tobacco use panel [facility] Medical Equipment Procedure Code Equipment Code Equipment Origin al Text Equipment Identifier Dates Eym-Gg-Y-Kind Implant - [id number] Start: 09-27-2022 Eik-Ka-K-Kind Implant - [id number] Start: 09-27-2022 Comment on above: Description: Whole s traight plate Jzi-Fc-Y-Kind Implant - [id number] Start: 09-27-2022 Comment on above: Description: 11mm Nfx-Vt-B-Kind Implant - [id number] Start: 09-27-2022 Fnx-Oi-P-Kind Implant - [id number] Start: 09-27-2022 Rfb-Hm-K-Kind Implant - [id number] Start: 09-27-2022 Stf-Wh-G-Kind Implant - [id number] Start: 09-27-2022 Clinical Notes 09-23-2022 to 11-14-2022 Osvaldo Davenport MD - 11/14/2022 10:41 AM Danielle Carbajal RT(R) - 11/14/2022 10:20 AM Frank Ann PA-C - 10/07/2022 10:57 AM Navid Escobedo RN - 10/07/2022 9:54 AM EST Note Date & Type Note Facility 11-14-2022 Note HNO ID: [id number] Author: RT Silviano(R) Service: ? Author Type: Technologist Type: Progress Notes Filed: 11/14/2022 11:02 AM Note Text: Radiology Service Progress Note PATIENT NAME: Shanda Hammer DATE OF SERVICE: November 14, 2022 TIME: 11:02 AM PATIENT IDENTITY VERIFICATION COMPLETED USING TWO (2) IDENTIFIERS: Name and Date of confirmed by patient verbally. FALL SCREENING: Has the patient had 2 falls in the last year or 1 fall with injury or currently using an Ambulatory Assistive Device (Walker, Cane, Wheelchair, Crutches, etc.)? No PATIENT GENDER DATA: Female. status: : No status: N/A PATIENT RELEVANT IMPLANT DATA REVIEWED: Not Applicable RADIOLOGY DEPARTMENT: General X-ray: Exam(s) Completed: Upper Extremity X-Ray(s): Hand, right PERIPHERAL IV DATA: Not applicable SIGNED BY: Danielle Lorenzo RT(R) November 14, 2022 11:02 AM [facility] 11-14-2022 History of Presen t illness Narrative Osvaldo Davenport MD Department of Orthopaedics Orthopaedics [address] [facility] [address] Dept: [phone] Dept November 14, 2022 CHIEF COMPLAINT: Established Patient and Post Op of the Right Hand. HPI Patient presents with: Right Hand - Established Patient, Post Op 6 weeks 5 days post op ORIF R 5th AMB ROOMING INTAKE FLOWSHEET DATA Risk Screening Do you have concerns about personal safety or safety in the home?: No Pt denies pain at this time. ASSESSMENT: S62.326D Closed displaced fracture of shaft of fifth metacarpal bone of right hand with routine healing, subsequent encounter (primary encounter diagnosis) SUMMARY/PLAN: At almost 7 weeks, patient is doing very well. Good motion, just a bit tight with full flexion, appropriate. NV intact. She can proceed with activities as tolerated. Exam: As abve Imaging: IMPRESSION: Healing plated right fifth metacarpal fracture. Heel Sprayer First: HILLARY Transcribe Date/Time: Nov 17 2022 4:00P Dictated by : Linda ZELAYA MD This examination was interpreted and the report reviewed and electronically signed by: Linda ZELAYA MD on Nov 17 2022 4:02PM EST Results-Findings * * *Final Report* * * DATE OF EXAM: Nov 14 2022 10:39AM [id number] - XR HAND 3V PA/LAT/OBL RT / PROCEDURE REASON: Closed displaced fracture of shaft of fifth metacarpal bone of right hand with r * * * * Physician Interpretation * * * * EXAMINATION: XR HAND 3V PA/LAT/OBL RT HISTORY: Closed displaced fracture of shaft of fifth metacarpal bone of right hand with routine healing, subsequent encounter VIEWS: PA, oblique and lateral. COMPARISON: 10/02/2022. FINDINGS: Plated right fifth metacarpal diaphysis fracture. Faint callus. Fracture lucency remains visible. No loss of fixation. Ms. Shanda Hammer was advised as to contrast therapies and/or to take analgesics/anti-inflammatories as needed and all contraindications were reviewed. Supporting Information Below: Medications: Current Outpatient Medications Medication Sig NAPROXEN ORAL Take by mouth as needed. cholecalciferol, vitamin D3, (VITAMIN D3 ORAL) Take by mouth once daily. BIOTIN ORAL Take by mouth once daily. hydrOXYzine HCl (ATARAX) 25 mg tablet Take 1 tablet by mouth once daily. SUMAtriptan (IMITREX) 25 mg tablet Take at onset of migraine amitriptyline (ELAVIL) 50 mg tablet Take 1 tablet by mouth once daily as needed. No current facility-administered medications for this visit. Allergies: Patient has no known allergies. Osvaldo Davenport MD documented in this encounter [facility] 11-14-2022 History of Presen t illness Narrative Radiology Service Progress Note PATIENT NAME: Shanda Hammer DATE OF SERVICE: November 14, 2022 TIME: 11:02 AM PATIENT IDENTITY VERIFICATION COMPLETED USING TWO (2) IDENTIFIERS: Name and Date of confirmed by patient verbally. FALL SCREENING: Has the patient had 2 falls in the last year or 1 fall with injury or currently using an Ambulatory Assistive Device (Walker, Cane, Wheelchair, Crutches, etc.)? No PATIENT GENDER DATA: Female. status: : No status: N/A PATIENT RELEVANT IMPLANT DATA REVIEWED: Not Applicable RADIOLOGY DEPARTMENT: General X-ray: Exam(s) Completed: Upper Extremity X-Ray(s): Hand, right PERIPHERAL IV DATA: Not applicable SIGNED BY: RT Silviano(R) November 14, 2022 11:02 AM documented in this encounter [facility] 10-07-2022 Note HNO ID: [id number] Author: Nati Ann PA-C Service: ? Author Type: Physician Veterans' Coordinator Type: Progress Notes Filed: 10/07/2022 10:59 AM Note Text: Nati Ann PA-C Department of Orthopaedics Orthopaedics [address] [facility] [address] Dept: [phone] Dept October 07, 2022 CHIEF COMPLAINT: Established Patient and Post Op of the Right Hand. ASSESSMENT: S62.326D Closed displaced fracture of shaft of fifth metacarpal bone of right hand with routine healing, subsequent encounter (primary encounter diagnosis) SUMMARY/PLAN: Patient presents 2 weeks status post ORIF of right fifth metacarpal fracture. She is doing well, having some itching and stiffness as well as some 5 out of 10 aching pain. We will get her into a functional brace today, we discussed encouraging gentle range of motion of the hand but to avoid any heavy lifting, pushing or pulling with the operative hand. We also discussed proper hygiene, handwashing. We will see her back in 1 month as planned. Exam: Incision site is well approximated without erythema or drainage. There is mild but appropriate edema as well as some ecchymosis extending down into the ulnar border of the wrist and up into the middle, ring and pinky digits. Patient is able to form a loose composite fist and extend all digits with no malrotation. Imaging: IMPRESSION: Status post ORIF of fifth metacarpal shaft fracture in near-anatomic alignment. Heel Sprayer First: PSCB Transcribe Date/Time: Oct 02 2022 2:41P Dictated by : PETTY GRAJEDA MD This examination was interpreted and the report reviewed and electronically signed by: PETTY GRAJEDA MD on Oct 02 2022 2:45PM EST Results-Findings * * *Final Report* * * DATE OF EXAM: Oct 02 2022 2:37PM [id number] - XR HAND 3V PA/LAT/OBL RT / PROCEDURE REASON: Closed displaced fracture of shaft of fifth metacarpal bone of right hand, initi * * * * Physician Interpretation * * * * CLINICAL INDICATION: Closed fracture follow-up TECHNIQUE: 3 view radiographic study of the right hand COMPARISON: Intraoperative fluoroscopic images dated September 27, 2022 FINDINGS: A surgical plate and multiple screw device transfixes a fracture of the fifth metacarpal shaft in near anatomic alignment without radiographic evidence of hardware complications. No additional abnormality identified. Ms. Shanda Hammer was advised as to contrast therapies and/or to take analgesics/anti-inflammatories as needed and all contraindications were reviewed. Supporting Information Below: Medications: Current Outpatient Medications Medication Sig NAPROXEN ORAL Take by mouth as needed. cholecalciferol, vitamin D3, (VITAMIN D3 ORAL) Take by mouth once daily. BIOTIN ORAL Take by mouth once daily. hydrOXYzine HCl (ATARAX) 25 mg tablet Take 1 tablet by mouth once daily. SUMAtriptan (IMITREX) 25 mg tablet Take at onset of migraine amitriptyline (ELAVIL) 50 mg tablet Take 1 tablet by mouth once daily as needed. No current facility-administered medications for this visit. Allergies: Patient has no known allergies. This note was partially generated using [employer] voice recognition system, and there may be some incorrect words, spellings, and punctuation that were not noted in checking the note before saving. Nati Ann PA-C [facility] 10-07-2022 Note HNO ID: [id number] Author: Kim Escobedo RN Service: ? Author Type: Registered Nurse Type: Progress Notes Filed: 10/07/2022 10:59 AM Note Text: Patient presents with: Right Hand - Established Patient, Post Op AMB ROOMING INTAKE FLOWSHEET DATA Pain Pain Level: 5 Description: Throbbing, Aching Duration Amount of Time: 2 Duration Units: Weeks Frequency: Intermittent Intervention/Comfort measure: Medication Pt c/o cramping in hand. [facility] 10-07-2022 History of Presen t illness Narrative Nati Ann PA-C Department of Orthopaedics Orthopaedics [address] [facility] [address] Dept: [phone] Dept October 07, 2022 CHIEF COMPLAINT: Established Patient and Post Op of the Right Hand. ASSESSMENT: S62.326D Closed displaced fracture of shaft of fifth metacarpal bone of right hand with routine healing, subsequent encounter (primary encounter diagnosis) SUMMARY/PLAN: Patient presents 2 weeks status post ORIF of right fifth metacarpal fracture. She is doing well, having some itching and stiffness as well as some 5 out of 10 aching pain. We will get her into a functional brace today, we discussed encouraging gentle range of motion of the hand but to avoid any heavy lifting, pushing or pulling with the operative hand. We also discussed proper hygiene, handwashing. We will see her back in 1 month as planned. Exam: Incision site is well approximated without erythema or drainage. There is mild but appropriate edema as well as some ecchymosis extending down into the ulnar border of the wrist and up into the middle, ring and pinky digits. Patient is able to form a loose composite fist and extend all digits with no malrotation. Imaging: IMPRESSION: Status post ORIF of fifth metacarpal shaft fracture in near-anatomic alignment. Heel Sprayer First: HILLARY Transcribe Date/Time: Oct 02 2022 2:41P Dictated by : PETTY GRAJEDA MD This examination was interpreted and the report reviewed and electronically signed by: PETTY GRAJEDA MD on Oct 02 2022 2:45PM EST Results-Findings * * *Final Report* * * DATE OF EXAM: Oct 02 2022 2:37PM [id number] - XR HAND 3V PA/LAT/OBL RT / PROCEDURE REASON: Closed displaced fracture of shaft of fifth metacarpal bone of right hand, initi * * * * Physician Interpretation * * * * CLINICAL INDICATION: Closed fracture follow-up TECHNIQUE: 3 view radiographic study of the right hand COMPARISON: Intraoperative fluoroscopic images dated September 27, 2022 FINDINGS: A surgical plate and multiple screw device transfixes a fracture of the fifth metacarpal shaft in near anatomic alignment without radiographic evidence of hardware complications. No additional abnormality identified. Ms. Shanda Hammer was advised as to contrast therapies and/or to take analgesics/anti-inflammatories as needed and all contraindications were reviewed. Supporting Information Below: Medications: Current Outpatient Medications Medication Sig NAPROXEN ORAL Take by mouth as needed. cholecalciferol, vitamin D3, (VITAMIN D3 ORAL) Take by mouth once daily. BIOTIN ORAL Take by mouth once daily. hydrOXYzine HCl (ATARAX) 25 mg tablet Take 1 tablet by mouth once daily. SUMAtriptan (IMITREX) 25 mg tablet Take at onset of migraine amitriptyline (ELAVIL) 50 mg tablet Take 1 tablet by mouth once daily as needed. No current facility-administered medications for this visit. Allergies: Patient has no known allergies. This note was partially generated using [employer] voice recognition system, and there may be some incorrect words, spellings, and punctuation that were not noted in checking the note before saving. Nati Ann PA-C Patient presents with: Right Hand - Established Patient, Post Op AMB ROOMING INTAKE FLOWSHEET DATA Pain Pain Level: 5 Description: Throbbing, Aching Duration Amount of Time: 2 Duration Units: Weeks Frequency: Intermittent Intervention/Comfort measure: Medication Pt c/o cramping in hand. documented in this encounter [facility] 10-02-2022 Note HNO ID: [id number] Author: RT Hansel(R) Service: ? Author Type: Finish Saw Operator Type: Progress Notes Filed: 10/02/2022 2:38 PM Note Text: Radiology Service Progress Note PATIENT NAME: Shanda Hammer DATE OF SERVICE: October 02, 2022 TIME: 2:13 PM PATIENT IDENTITY VERIFICATION COMPLETED USING TWO (2) IDENTIFIERS: Name and Date of confirmed by patient verbally. FALL SCREENING: Has the patient had 2 falls in the last year or 1 fall with injury or currently using an Ambulatory Assistive Device (Walker, Cane, Wheelchair, Crutches, etc.)? No PATIENT GENDER DATA: Female. status: : No status: NO. PATIENT RELEVANT IMPLANT DATA REVIEWED: Yes RADIOLOGY DEPARTMENT: General X-ray: Exam(s) Completed: Upper Extremity X-Ray(s): Hand, right PERIPHERAL IV DATA: Not applicable SIGNED BY: RT Hansel(R) October 02, 2022 2:13 PM [facility] 09-27-2022 Note HNO ID: [id number] Author: Manolo Munroe APRN.WOOD FENCE INSTALLER Service: Anesthesiology Author Type: Nurse Regulatory Compliance Officer Type: Anesthesia Procedure Notes Filed: 09/27/2022 3:41 PM Note Text: ANESTHESIOLOGY PROCEDURE NOTE Airway General Information Procedure Start Time/Medication Administration: 09/27/2022 3:28 PM Procedure End Time: 09/27/2022 3:30 PM Patient location during procedure: OR Timeout Performed Pre-procedure: timeout performed Consent Obtained: Yes Patient identity confirmed: arm band, care [employer] team member and patient Staffing WOOD FENCE INSTALLER: Manolo Munroe APRN.WOOD FENCE INSTALLER Performed by: WOOD FENCE INSTALLER Indications and Patient Condition Indications for airway management: anesthesia Preoxygenated: yes anesthesia circuit Patient position: sniffing Method: asleep Cricoid Pressure: No Manual In-Line Stabilization: No Difficult Mask: No Final Airway Details Final airway type: supraglottic airway Number of attempts at approach: 1 Final Supraglottic Airway: i-gel Size 4 Seal Adequate: yes Failed airway: no Unrecognized esophageal intubation: no Airway not difficult SIGNATURE: Manolo Munroe APRN.WOOD FENCE INSTALLER PATIENT NAME: Shanda Hammer DATE: September 27, 2022 TIME: 3:40 PM CSN: [id number] [facility] 09-24-2022 Miscellaneous Notes Pre-op instructions sent. documented in this encounter [facility] 09-23-2022 Miscellaneous Notes Surgery has been scheduled as requested. Surgical request completed for ORIF right 5th MC with [facility]RA soto at [facility] on 09/27/2022. Post op appointments have been scheduled and mailed to patient. documented in this encounter [facility] 09-23-2022 Note HNO ID: [id number] Author: Nati Ann PA-C Service: ? Author Type: Physician Veterans' Coordinator Type: Progress Notes Filed: 09/23/2022 10:51 AM Note Text: Nati Ann PA-C Department of Orthopaedics Orthopaedics [address] [place] [address] Dept: [phone] Dept September 23, 2022 CHIEF COMPLAINT: New and Fracture of the Right Hand Ms. Shnada Hammer is a 41 year old female who presents with a right hand fracture. She was trying to empty a large trash can into a dumpster about 4 days ago. The trash can kicked back and hit her right hand. She was seen at the emergency room and placed in a splint. She is right-hand dominant. She denies any previous right hand injuries, she is currently not working outside of the home. ASSESSMENT: S62.326A Closed displaced fracture of shaft of fifth metacarpal bone of right hand, initial encounter (primary encounter diagnosis) PLAN: We discussed surgical intervention, the patients questions were addressed. The risks, benefits, alternatives and were discussed, patinet understands and wishes to pursue surgical intervention. Ms. Shanda Hammer was advised as to contrast therapies and/or to take analgesics/anti-inflammatories as needed and all contraindications were reviewed. OBJECTIVE: Ms. Shanda Hammer is a pleasant 41 year old in no apparent distress. Gen:There were no vitals taken for this visit. nl development, non obese, no deformities ENT: Normocephalic, normal hearing, moist mucosa CV: Pulses:Radial= 2+ and symmetric, capillary refill < 2 secs, no peripheral edema/varicosities Skin: no rash, bruising or lesions. Good turgor. Psych: cooperative and appropriate, alert and oriented x 3, good mood and affect. Musculoskeletal: Right hand with tenderness palpation over the fifth metacarpal. Moderate edema of the palm extending into the third, fourth and fifth digits. Ecchymosis in the palm extending into the middle digit. Patient is able to form a loose composite fist with malrotation of the pinky digit. Sensation is intact to the hand. Imaging: X-rays September 19, 2022 right hand. Acute oblique fracture of the fifth metacarpal diaphysis, shortened and displaced. No other fractures are noted. No dislocations. Supporting Subjective Information Below: Past Surgical History: No past surgical history on file. Medications: Current Outpatient Medications Medication Sig naproxen (NAPROSYN) 500 mg tablet Take 500 mg by mouth twice daily as needed. hydrOXYzine HCl (ATARAX) 25 mg tablet Take 1 tablet by mouth once daily. SUMAtriptan (IMITREX) 25 mg tablet Take at onset of migraine amitriptyline (ELAVIL) 50 mg tablet Take 1 tablet by mouth once daily as needed. HYDROcodone-acetaminophen (NORCO) 5-325 mg per tablet Take 1 tablet by mouth every 6 hours as needed for up to 5 days. No current facility-administered medications for this visit. Allergies: Patient has no known allergies. ROS: General (negative for fatigue, malaise, weight loss/gain) HEENT (negative for headache, earache, recent vision changes, sinus pain, sore throat) Respiratory (no recent shortness of breath, hemoptysis) CV (negative for chest tightness, palpitations) Musculoskeletal (see HPI) Psych (no depression, anxiety) This note was partially generated using [employer] voice recognition system, and there may be some incorrect words, spellings, and punctuation that were not noted in checking the note before saving. Nati Ann PA-C [facility] 09-23-2022 Note HNO ID: [id number] Author: Enedina Blackwood Ma Service: ? Author Type: ? Type: Progress Notes Filed: 09/23/2022 10:51 AM Note Text: AMB ROOMING INTAKE FLOWSHEET DATA Risk Screening Do you have concerns about personal safety or safety in the home?: No Pain Pain Level: 8 Pain Location: Hand-Right Description: Throbbing, Sharp Duration Amount of Time: 4 Duration Units: Days Frequency: Intermittent Intervention/Comfort measure: Splinting, Medication Patient here today for right hand fracture. Injury happened on 09/19/2022 when trying to dump trash can into dumpster. She is right hand dominant, does not work outside the home. Arrives with images from outside facility for review. [facility] 09-23-2022 History of Presen t illness Narrative Nati Ann PA-C Department of Orthopaedics Orthopaedics [address] [facility] [address] Dept: [phone] Dept September 23, 2022 CHIEF COMPLAINT: New and Fracture of the Right Hand Ms. Shanda Hammer is a 41 year old female who presents with a right hand fracture. She was trying to empty a large trash can into a dumpster about 4 days ago. The trash can kicked back and hit her right hand. She was seen at the emergency room and placed in a splint. She is right-hand dominant. She denies any previous right hand injuries, she is currently not working outside of the home. ASSESSMENT: S62.326A Closed displaced fracture of shaft of fifth metacarpal bone of right hand, initial encounter (primary encounter diagnosis) PLAN: We discussed surgical intervention, the patients questions were addressed. The risks, benefits, alternatives and were discussed, patinet understands and wishes to pursue surgical intervention. Ms. Shanda Hammer was advised as to contrast therapies and/or to take analgesics/anti-inflammatories as needed and all contraindications were reviewed. OBJECTIVE: Ms. Shanda Hammer is a pleasant 41 year old in no apparent distress. Gen:There were no vitals taken for this visit. nl development, non obese, no deformities ENT: Normocephalic, normal hearing, moist mucosa CV: Pulses:Radial= 2+ and symmetric, capillary refill < 2 secs, no peripheral edema/varicosities Skin: no rash, bruising or lesions. Good turgor. Psych: cooperative and appropriate, alert and oriented x 3, good mood and affect. Musculoskeletal: Right hand with tenderness palpation over the fifth metacarpal. Moderate edema of the palm extending into the third, fourth and fifth digits. Ecchymosis in the palm extending into the middle digit. Patient is able to form a loose composite fist with malrotation of the pinky digit. Sensation is intact to the hand. Imaging: X-rays September 19, 2022 right hand. Acute oblique fracture of the fifth metacarpal diaphysis, shortened and displaced. No other fractures are noted. No dislocations. Supporting Subjective Information Below: Past Surgical History: No past surgical history on file. Medications: Current Outpatient Medications Medication Sig naproxen (NAPROSYN) 500 mg tablet Take 500 mg by mouth twice daily as needed. hydrOXYzine HCl (ATARAX) 25 mg tablet Take 1 tablet by mouth once daily. SUMAtriptan (IMITREX) 25 mg tablet Take at onset of migraine amitriptyline (ELAVIL) 50 mg tablet Take 1 tablet by mouth once daily as needed. HYDROcodone-acetaminophen (NORCO) 5-325 mg per tablet Take 1 tablet by mouth every 6 hours as needed for up to 5 days. No current facility-administered medications for this visit. Allergies: Patient has no known allergies. ROS: General (negative for fatigue, malaise, weight loss/gain) HEENT (negative for headache, earache, recent vision changes, sinus pain, sore throat) Respiratory (no recent shortness of breath, hemoptysis) CV (negative for chest tightness, palpitations) Musculoskeletal (see HPI) Psych (no depression, anxiety) This note was partially generated using [employer] voice recognition system, and there may be some incorrect words, spellings, and punctuation that were not noted in checking the note before saving. Nati Ann PA-C AMB ROOMING INTAKE FLOWSHEET DATA Risk Screening Do you have concerns about personal safety or safety in the home?: No Pain Pain Level: 8 Pain Location: Hand-Right Description: Throbbing, Sharp Duration Amount of Time: 4 Duration Units: Days Frequency: Intermittent Intervention/Comfort measure: Splinting, Medication Patient here today for right hand fracture. Injury happened on 09/19/2022 when trying to dump trash can into dumpster. She is right hand dominant, does not work outside the home. Arrives with images from outside facility for review. documented in this encounter [facility] Evaluation note Diagnosis Closed displaced fracture of shaft of fifth metacarpal bone of right hand, initial encounter- Primary Pain of right hand Pain in limb Closed displaced fracture of shaft of fifth metacarpal bone of right hand, initial encounter [facility] Closed displaced fracture of shaft of fifth metacarpal bone of right hand, initial encounter- Primary Closed displaced fracture of shaft of fifth metacarpal bone of right hand, initial encounter [facility] Diagnosis Closed displaced fracture of shaft of fifth metacarpal bone of right hand, initial encounter- Primary [facility] Diagnosis Closed displaced fracture of shaft of fifth metacarpal bone of right hand with routine healing, subsequent encounter- Primary [facility] Diagnosis Closed displaced fracture of shaft of fifth metacarpal bone of right hand with routine healing, subsequent encounter- Primary [facility] Diagnosis Closed displaced fracture of shaft of fifth metacarpal bone of right hand with routine healing, subsequent encounter- Primary [facility] Diagnosis Closed displaced fracture of shaft of fifth metacarpal bone of right hand with routine healing, subsequent encounter [facility] Diagnosis Pre-op evaluation- Primary Preoperative examination, unspecified Insomnia, unspecified type Tobacco use disorder Closed displaced fracture of shaft of fifth metacarpal bone of right hand, initial encounter documented in this encounter [facility] for referral (narrative)* Diagnostic Procedure Only (Routine) - Pending Review Specialty Diagnoses / Procedures Referred By Karly ontiveros Referred To Contact XR IMAGING Diagnoses Closed displaced fracture of shaft of fifth metacarpal bone of right hand, initial encounter Procedures XR HAND GENERAL 3V PA/LAT/OBL RIGHT RADEX HAND MINIMUM 3 VIEWS Osvaldo Davenport MD [address] [place] [address] Xr Imaging Referral ID Status Reason Start Date Expiration Date Visits Requested Visits Authorized [id number] Pending Review Auto-Generat ed Referral 2 2023 1 1 [facility])* Diagnostic Procedure Only (Routine) - Closed Specialty Diagnoses / Procedures Referred By Karly ontiveros Referred To Contact XR IMAGING Diagnoses Closed displaced fracture of shaft of fifth metacarpal bone of right hand with routine healing, subsequent encounter Procedures XR HAND GENERAL 3V PA/LAT/OBL RIGHT RADEX HAND MINIMUM 3 VIEWS Osvaldo Davenport MD [address] [place] [address] Xr Imaging Referral ID Status Reason Start Date Expiration Date V isits Requested Visits Authorized [id number] Closed Auto-Generate d Referral 11/13/2022 12/13/2023 1 1 [facility] for referral (narrative)* Diagnostic Procedure Only (Routine) - Closed Specialty Diagnoses / Procedures Referred By Contac t Referred To Contact XR IMAGING Diagnoses Closed displaced fracture of shaft of fifth metacarpal bone of right hand with routine healing, subsequent encounter Procedures XR HAND GENERAL 3V PA/LAT/OBL RIGHT RADEX HAND MINIMUM 3 VIEWS Osvaldo Davenport MD [address] [place] [address] [place] [address] Referral ID Status Reason Start Date Expiration Date V isits Requested Visits Authorized [id number] Closed Auto-Generate d Referral 11/13/2022 12/13/2023 1 1 [facility] for referral (narrative)* Diagnostic Procedure Only (Routine) - Closed Specialty Diagnoses / Procedures Referred By Franklinac t Referred To Contact XR IMAGING Diagnoses Closed displaced fracture of shaft of fifth metacarpal bone of right hand, initial encounter Procedures XR HAND GENERAL 3V PA/LAT/OBL RIGHT RADEX HAND MINIMUM 3 VIEWS Osvaldo Davenport MD [address] [place] [address] [place] [address] Referral ID Status Reason Start Date Expiration Date V isits Requested Visits Authorized [id number] Closed Auto-Generate d Referral 09/30/2022 2023 1 1 [facility] for visit Narrative* Diagnostic Procedure Only (Routine) - Closed Specialty Diagnoses / Procedures Referred By Karly t Referred To Contact XR IMAGING Diagnoses Closed displaced fracture of shaft of fifth metacarpal bone of right hand with routine healing, subsequent encounter Procedures XR HAND GENERAL 3V PA/LAT/OBL RIGHT RADEX HAND MINIMUM 3 VIEWS Osvaldo Davenport MD [address] [place] [address] [place] [address] Referral ID Status Reason Start Date Expiration Date V isits Requested Visits Authorized [id number] Closed Auto-Generate d Referral 11/13/2022 12/13/2023 1 [facility] Diagnostic Procedure Only (Routine) - Closed Specialty Diagnoses / Procedures Referred By Contac t Referred To Contact XR IMAGING Diagnoses Closed displaced fracture of shaft of fifth metacarpal bone of right hand, initial encounter Procedures XR HAND GENERAL 3V PA/LAT/OBL RIGHT RADEX HAND MINIMUM 3 VIEWS Osvaldo Davenport MD [address] [facility] [place] [address] [place] [address] Referral ID Status Reason Start Date Expiration Date V isits Requested Visits Authorized [id number] Closed Auto-Generate d Referral 09/30/2022 2023 1 1 [facility] Summary Purpose Family History No Family History Records FoundNo Family History Records FoundNo Family History Records FoundNo Family History Records FoundNo Family History Records FoundNo Family History Records FoundNo Family History Records Found Advance Directives No Advanced Directives Records FoundNo Advanced Directives Records FoundNo Advanced Directives Records FoundNo Advanced Directives Records FoundNo Advanced Directives Records FoundNo Advanced Directives Records FoundNo Advanced Directives Records Found Instructions * Patient Instructions* Cherry Regan, DIRECTOR PUBLIC POLICY - 12/28/2019 1:45 PM EST Viral Infections: Care Instructions Your Care Instructions You don't feel well, but it's not clear what's causing it. You may have a viral infection. Viruses cause many illnesses, such as the common cold, influenza, fever, rashes, and the diarrhea, nausea, and vomiting that are often called stomach flu. You may wonder if antibiotic medicines could make you feel better. But antibiotics only treat infections caused by bacteria. They don't work on viruses. The good news is that viral infections usually aren't serious. Most will go away in a few days without medical treatment. In the meantime, there are a few things you can do to make yourself more comfortable. Follow-up care is a shah part of your treatment and safety. Be sure to make and go to all appointments, and call your doctor if you are having problems. It's also a good idea to know your test resultsand keep a list of the medicines you take. How can you care for yourself at home? Get plenty of rest if you feel tired. Take an snch-xmb-mnmnjqx pain medicine if needed, such as acetaminophen (Tylenol), ibuprofen (Advil, Motrin), or naproxen (Aleve). Read and follow all instructions on the label. Be careful when taking objl-dww-szayjdi cold or flu medicines and Tylenol at the same time. Many ofthese medicines have acetaminophen, which is Tylenol. Read the labels to make sure that you are nottaking more than the recommended dose. Too much acetaminophen (Tylenol) can be harmful. Drink plenty of fluids, enough so that your urine is light yellow or clear like water. If you have kidney, heart, or liver disease and have to limit fluids, talk with your doctor before you increase the amount of fluids you drink. Stay home from work, school, and other public places while you have a fever. When should you call for help? Call anytime you think you may need emergency care. For example, call if: You have severe trouble breathing. You passed out (lost consciousness). Call your doctor now or seek immediate medical care if: You seem to be getting much sicker. You have a new or higher fever. You have blood in your stools. You have new belly pain, or your pain gets worse. You have a new rash. Watch closely for changes in your health, and be sure to contact your doctor if: You start to get better and then get worse. You do not get better as expected. Where can you learn more? Go to [email or web address]/patiented. Enter L906 in the search box to learn more about 'Viral Infections: Care Instructions.' Interested in seeing a video go to [email or web address] ?[email or web address]/videolibrary to see all video content. Current as of: December 05, 2019 Content Version: 12.4 [employer]. Care instructions adapted under license by your healthcare professional. If you have questions about a medical condition or this instruction, always ask your healthcare professional. [employer] disclaims any warranty or liability for your use of this information. documented in this encounter History of Present Illness * Cherry Regan CNP - 12/28/2019 1:45 PM EST HPI Shanda Hammer female 1980 presents to the [facility] with Chief Complaint Patient presents with Cough cough, sore throat , aches and fever since yesterday Presents with c/o cough. Cough is dry. Onset yesterday of dry cough, pharyngitis, myalgias & fever. Denies dyspnea, wheezing. No self tx. History No Known Allergies No current outpatient medications on file. family history is not on file. No past medical history on file. No past surgical history on file. Social History Socioeconomic History Marital status: Single Spouse name: Not on file Number of children: Not on file Years of education: Not on file Highest education level: Not on file Occupational History Not on file Social Needs Financial resource strain: Not on file Food insecurity Worry: Not on file Inability: Not on file Transportation needs Medical: Not on file Non-medical: Not on file Tobacco Use Smoking status: Current Every Day Smoker Packs/day: 0.50 Substance and Sexual Activity Alcohol use: Not Currently Drug use: Never Sexual activity: Yes Partners: Male Lifestyle Physical activity Days per week: Not on file Minutes per session: Not on file Stress: Not on file Relationships Social connections Talks on phone: Not on file Gets together: Not on file Attends episcopalian service: Not on file Active member of club or organization: Not on file Attends meetings of clubs or organizations: Not on file Relationship status: Not on file Intimate partner violence Fear of current or ex partner: Not on file Emotionally abused: Not on file Physically abused: Not on file Forced sexual activity: Not on file Other Topics Concern Service Not Asked Blood Transfusions Not Asked Caffeine Concern Not Asked Occupational Exposure Not Asked Hobby Hazards Not Asked Sleep Concern Not Asked Stress Concern Not Asked Weight Concern Not Asked Special Diet Not Asked Back Care Not Asked Exercise Not Asked Bike Helmet Not Asked Seat Belt Not Asked Domestic Violence No Social History Narrative Not on file ROS Review of Systems Constitutional: Positive for fever. Negative for chills. HENT: Positive for sore throat. Negative for congestion and sneezing. Eyes: Negative. Negative for discharge. Respiratory: Positive for cough. Negative for shortness of breath. Cardiovascular: Negative. Negative for chest pain and leg swelling. Gastrointestinal: Negative. Negative for abdominal pain and constipation. Endocrine: Negative. Genitourinary: Negative for difficulty urinating. Musculoskeletal: Positive for myalgias. Negative for gait problem. Skin: Negative. Negative for color change and pallor. Neurological: Negative. Negative for weakness and headaches. Hematological: Negative. Does not bruise/bleed easily. Psychiatric/Behavioral: Negative. Negative for confusion. All other systems reviewed and are negative. PHYSICAL EXAM Visit Vitals BP 113/73 (BP Location: Right arm, BP Position: Sitting) Pulse 72 Temp 98.3 F (36.8 C) (Temporal) Resp 16 Ht 1.676 m (5' 6 ) Wt 60.1 kg (132 lb 9.6 oz) LMP (LMP Unknown) SpO2 98% No BMI 21.40 kg/m Physical Exam Vitals signs and nursing note reviewed. HENT: Head: Normocephalic and atraumatic. Right Ear: Tympanic membrane and ear canal normal. Left Ear: Tympanic membrane and ear canal normal. Nose: Nose normal. Mouth/Throat: Pharynx: Oropharynx is clear. Uvula midline. Eyes: Pupils: Pupils are equal, round, and reactive to light. Neck: Musculoskeletal: Normal range of motion and neck supple. Cardiovascular: Rate and Rhythm: Normal rate and regular rhythm. Heart sounds: Normal heart sounds. Pulmonary: Effort: Pulmonary effort is normal. Breath sounds: Normal breath sounds. No decreased breath sounds, wheezing, rhonchi or rales. Abdominal: General: Bowel sounds are normal. Palpations: Abdomen is soft. Musculoskeletal: Normal range of motion. Skin: General: Skin is warm and dry. Neurological: Mental Status: She is alert and oriented to person, place, and time. Recent Results (from the past 1 hour(s)) POCT INFLUENZA, A B Collection Time: 12/28/19 2:17 PM Result Value Ref Range POCT Influenza A neg POCT Influenza B neg POCT RAPID STREP A Collection Time: 12/28/19 2:36 PM Result Value Ref Range POCT RAPID STREP A neg (+/-) ASSESSMENT/PLAN 1. Sore throat - POCT INFLUENZA, A B - POCT RAPID STREP A 2. Viral syndrome Neg flu; neg strep. Advised supportive measures & f/u with PCP. If symptoms worsen patient was advised to follow up in our office or the Emergency Dept. Benefits, Risks, Contraindications, and Complications of recommended treatments were explained. The patient understands and agrees to proceed with plan. Cherry Regan CNP 12/28/2019 documented in this encounter Assessments Diagnosis Sore throat Acute pharyngitis Viral syndrome Unspecified viral infection, in conditions classified elsewhere and of unspecified site Reason for Referral * boxers fracture Additional Source Comments INFORMATION SOURCE (unrecogn ized section and content) DATE CREATED AUTHOR 01/07/2019 [facility] DATE CREATED AUTHOR AUTHOR'S ORGANIZ ATION 02/07/2019 [facility] DATE CREATED AUTHOR AUTHOR'S ORGANIZ ATION 02/10/2019 [facility] DATE CREATED AUTHOR AUTHOR'S ORGANIZ ATION 09/23/2022 [facility] DATE CREATED AUTHOR AUTHOR'S ORGANIZ ATION 10/01/2022 [facility] DATE CREATED AUTHOR AUTHOR'S ORGANIZ ATION 11/17/2022 [facility] DATE CREATED AUTHOR AUTHOR'S ORGANIZ ATION 01/13/2024 [facility] Reason for Visit (unrecogniz ed section and content) Reason Comments Cough cough, sore throat , aches and fever since yesterday Reason Comments New Fracture Reason Comments Schedule Surgery Reason Comments Established Patient Post Op <item> Privacy Markings (unrecogniz ed section and content) Section Author: Dalia Sheffield PROHIBITION ON REDISCLOSURE OF CONFIDENTIAL INFORMATION This notice accompanies a disclosure of information concerning a client made to you with the consent of such client. Source Comments (unrecognize d section and content) In the event this informatio n is protected by the Federal Confidentiality of Alcohol and Drug Abuse Patient Records regulations: The Federal rules restrict any use of the information to criminally investigate or prosecute any alcohol or drug abuse patient.[facility] the event this information is protected by the Federal Confidentiality of Alcohol and Drug Abuse Patient Records regulations: The Federal rules restrict any use of the information to criminally investigate or prosecute any alcohol or drug abuse patient.[facility] the event this information is protected by the Federal Confidentiality of Alcohol and Drug Abuse Patient Records regulations: The Federal rules restrict any use of the information to criminally investigate or prosecute any alcohol or drug abuse patient.[facility] the event this information is protected by the Federal Confidentiality of Alcohol and Drug Abuse Patient Records regulations: The Federal rules restrict any use of the information to criminally investigate or prosecute any alcohol or drug abuse patient.[facility] the event this information is protected by the Federal Confidentiality of Alcohol and Drug Abuse Patient Records regulations: The Federal rules restrict any use of the information to criminally investigate or prosecute any alcohol or drug abuse patient.[facility] the event this information is protected by the Federal Confidentiality of Alcohol and Drug Abuse Patient Records regulations: The Federal rules restrict any use of the information to criminally investigate or prosecute any alcohol or drug abuse patient.[facility] the event this information is protected by the Federal Confidentiality of Alcohol and Drug Abuse Patient Records regulations: The Federal rules restrict any use of the information to criminally investigate or prosecute any alcohol or drug abuse patient.[facility] the event this information is protected by the Federal Confidentiality of Alcohol and Drug Abuse Patient Records regulations: The Federal rules restrict any use of the information to criminally investigate or prosecute any alcohol or drug abuse patient.[facility] the event this information is protected by the Federal Confidentiality of Alcohol and Drug Abuse Patient Records regulations: The Federal rules restrict any use of the information to criminally investigate or prosecute any alcohol or drug abuse patient.[facility] Care Teams (unrecognized sec tion and content) Mold Filling Operator Relationship Specialty Start Date End Date Carolina Garg MD [address] [id number] PCP - General Internal Medicine 09/27/22 Mold Filling Operator Relationship Specialty Start Date End Date Carolina Garg MD [address] [place] [address] PCP - General Internal Medicine 09/27/22 Mold Filling Operator Relationship Specialty Start Date End Date Carolina Garg MD [address] [facility] [address] [place] [address] PCP - General Internal Medicine 09/27/22 Mold Filling Operator Relationship Specialty Start Date End Date Carolina Garg MD [address] [facility] [address] [place] [id number] PCP - General Internal Medicine 09/27/22 Mold Filling Operator Relationship Specialty Start Date End Date Carolina Garg MD [address] [facility] [address] [place] [address] PCP - General Internal Medicine 09/27/22 Mold Filling Operator Relationship Specialty Start Date End Date Carolina Garg MD [address] [facility] [address] [place] [phone] PCP - General Internal Medicine 09/27/22 FOR RECORDS PERTAINING TO PATIENTS WHO ARE OR HAVE BEEN ENROLLED IN A CHEMICAL DEPENDENCY/SUBSTANCEABUSE PROGRAM, SOME INFORMATION MAY BE OMITTED. This clinical summary was aggregated from multiple sources. Caution should be exercised in using it in the provision of clinical care. This summary normalizes information from multiple sources, and as a consequence, information in this document may materially change the coding, format and clinical context of patient data. In addition, data may be omitted in some cases. CLINICAL DECISIONS SHOULD BE BASED ON THE PRIMARY CLINICAL RECORDS. [email or web address] [facility]. provides no warranty or guarantee of the accuracy or completeness of information in this document.
[2024-09-08 11:10] LABS: Cancer Antigen 125 6.4 U/mL (0.0-38.1); Carcinoembryonic Antigen 5.7 ng/mL (0.0-4.7)
== END | disposition home or self-care (01) ==
PROVIDERS: PCP Internal Medicine; Referring Provider Nurse Practitioner Women's Health; Visit Provider Nurse Practitioner Women's Health
DX: N83.201 Unspecified ovarian cyst, right side (principal)
CPT/HCPCS: 36415; 82378; 86304

== ENCOUNTER → 2024-10-13 | Outpatient (CLI) | payer MEDICAID, SELFPAY ==
[2024-10-13 12:29] LABS: ALB/GLOB Ratio 1.4 RATIO (0.9-2.4); AST(SGOT) 22 U/L (15-37); Alanine Aminotransfer ALT/SGPT 38 U/L (13-56); Alkaline Phosphatase 76 U/L (45-117); Anion Gap 7 (5-15); BUN 22 mg/dL (7-18); BUN/Creat Ratio 26.8 RATIO (10-20); Calcium,Total 9.5 mg/dL (8.5-10.1); Chloride 107 mmol/L (98-107); Creatinine, Serum 0.82 mg/dL (0.55-1.02); EST Glomerular Filtration Rate 81 mL/min (>60); Est Glom Filt Rate - Afr Amer 98 mL/min (>60); Globulin 2.9 g/dL (2.2-4.2); Glucose 85 mg/dL (74-106); Protein, Total 6.9 g/dL (6.4-8.2); Sodium Level 139 mmol/L (136-145)
[2024-10-13 12:34] LABS: Absolute Lymphocyte Count 2.29 X10^3/uL (0.83-4.51); Absolute Neutrophil Count 6.1 X10^3/uL (2.0-7.7); Basophil# 0.12 X10^3/uL; Basophil% 1.3 % (0-1); Eosinophil# 0.23 X10^3/uL; Eosinophils% 2.4 % (0-5); Hematocrit 38.5 % (37-47); Hemoglobin 12.7 g/dL (12.0-15.0); Lymphocyte # 2.29 X10^3/ul (0.83-4.51); Lymphocyte % 23.9 % (19-41); Mean Corpuscular Hgb 30.1 pg (27.0-32.0); Mean Corpuscular Volume 91.2 fL (81-99); Mean Platelet Vol. 11.7 fl (6.2-12.0); Monocyte# 0.81 X10^3/uL; Monocyte% 8.4 % (0-10); NRBC Flagged by Analyzer 0 % (0-5); Neutrophil # 6.07 X10^3/uL (2.7-7.7); Neutrophil % 63.2 % (47-70); Platelet Count 318 K/mm3 (150-450); RBC Distribution Width CV 13.2 % (11.6-14.6); RBC Distribution Width SD 43.9 fl (35.1-43.9); Red Blood Count 4.22 M/mm3 (4.2-5.4); White Blood Count 9.6 K/mm3 (4.4-11.0)
== END | disposition home or self-care (01) ==
LOC: BIMLAB 10:45
PROVIDERS: PCP Internal Medicine; Referring Provider Internal Medicine; Visit Provider Internal Medicine
DX: G43.709 Chronic migraine without aura, not intractable, without status migrainosus (principal)
CPT/HCPCS: 36415; 80053; 85025

== ENCOUNTER → 2025-01-13 | Outpatient (CLI) | payer MEDICAID, SELFPAY ==
[2025-01-13 20:38] LABS: Cholesterol 203 mg/dL (<=200); High Density Lipoprotein 88 mg/dL; Low Density Lipoprotein Calc. 101 mg/dL; Triglycerides 71 mg/dL; Very Low Density Lipoprotein 14 mg/dL (5-40); cholesterol:hdl ratio screen 2.32
[2025-01-17 19:07] LABS: Lipoprotein A 9.3 nmol/L (<75.0)
== END | disposition home or self-care (01) ==
LOC: BIMLAB 15:32
PROVIDERS: PCP Internal Medicine; Referring Provider Internal Medicine; Visit Provider Internal Medicine
DX: Z13.6 Encounter for screening for cardiovascular disorders (principal); Z91.89 Other specified personal risk factors, not elsewhere classified; Z82.49 Family history of ischemic heart disease and other diseases of the circulatory system
CPT/HCPCS: 36415; 80061; 83695

== ENCOUNTER → 2025-09-22 | Outpatient (CLI) | payer MEDICAID, SELFPAY ==
--- NOTE | 2025-09-22 10:15 | BI_ITS ---
EXAM: SCRN MAMM (CAD)W/KAREN BILAT DATE: 09/22/2025 CLINICAL HISTORY: F, Age 44 y/o , SCREEN FOR BREAST CANCER Mother with breast cancer. TECHNIQUE: Procedure Code: [id number] Modality: MG Procedure: SCRN MAMM (CAD)W/KAREN BILAT COMPARISON: Prior exam(s) dated July 26, 2024.. FINDINGS: TISSUE DENSITY: The breasts are extremely dense, which lowers the sensitivity of mammography. Bilateral Breast Mammographic Findings: No significant masses, calcifications or other abnormalities are identified. Stable small fat containing bilateral axillary lymph nodes. No suspicious masses, areas of developing architectural distortion, or suspicious calcifications. There has been no significant interval change. BI/SCRN MAMM (CAD)W/KAREN BILAT IMPRESSION: Stable bilateral screening mammogram. OVERALL FINAL ASSESSMENT BI-RADS 2: BENIGN RECOMMENDATION: Routine annual follow-up in 1 Year Additional Recommendation none A letter with findings and recommendations will be mailed to the patient. Reading Location: [place] [id number]
== END | disposition home or self-care (01) ==
PROVIDERS: PCP Internal Medicine; Referring Provider Obstetrics & Gynecology; Visit Provider Obstetrics & Gynecology
DX: Z12.31 Encounter for screening mammogram for malignant neoplasm of breast (principal); Z80.3 Family history of malignant neoplasm of breast
CPT/HCPCS: 77063; 77067